=== PATIENT | female | born 1965 | race Caucasian/White ===

== ENCOUNTER 2020-09-01 13:00 | Emergency (ER) | payer OTHER, SELFPAY ==
[2020-09-01 13:10] VITALS: BP 123/69; PULSE 85; RESP 16; TEMP 36.5; O2SAT 100
--- NOTE | 2020-09-01 14:53 | PC.NURSE ---
pt states she is going to go home and come back tomorrow if she isnt better. states this is just too much .
== END 2020-09-01 13:53 | disposition left against medical advice (07) ==
PROVIDERS: PCP Family Medicine
DX: S09.90XA Unspecified injury of head, initial encounter (principal)
CPT/HCPCS: 99199

== ENCOUNTER 2021-07-31 04:41 | Emergency (ER) | payer OTHER, SELFPAY ==
--- NOTE | ~2021-07-31 | XR_ITS ---
EXAMINATION: XR chest 2V DATE: 07/31/2021 06:01 INDICATION: Cough TECHNIQUE: PA and lateral views of the chest were obtained. COMPARISON: Chest radiograph dated 09/08/[address] dated 09/16/2015 FINDINGS: Chronic reticulonodular pattern in the bilateral lower lung zones which on prior CT correspond to com bination of bronchiectasis and tree-in-bud opacities consistent with chronic/recurrent infection. No new airspace opacities, pleural effusion or pneumothorax. The cardiomediastinal silhouette is normal. Mild to moderate thoracic spondylosis. IMPRESSION: 1. Stable appearance of chronic reticulonodular pattern in the bilateral lower lung zones consistent with chronic/recurrent infection. Reviewed, dictated and finalized at location A.
[2021-07-31 04:46] VITALS: BP 113/66; PULSE 98; RESP 16; TEMP 36.2; O2SAT 100
[2021-07-31] MEDS: KETOROLAC 30 MG/ML VIAL (*BKC) IV PUSH (05:26)
[2021-07-31 05:29] VITALS: PULSE 85; RESP 16
[2021-07-31] MEDS: IPRATROPIUM BR 0.02% INH SOLN 0.5 MG/2.5 ML VIAL INHALATION (05:29)
[2021-07-31] MEDS: ALBUTEROL SULFATE NEB 2.5 MG/0.5 ML INH 5 MG INHALATION (05:29)
--- NOTE | 2021-07-31 05:29 | ED.GENADULT ---
HPI - General Adult General Chief complaint: Unspecified Stated complaint: LUNGS ARE PAINFUL Time Seen by Provider: 07/31/21 04:56 History of Present Illness HPI narrative: Patient is a 56-year-old female with history of bronchiectasis that presents ER with lung pain. Reports its been ongoing intermittently over the last 4 months. She has been on multiple doses of antibiotics. Denies fevers night but reports some intermittently over the week. Also endorses chills. Reports cough is productive of sputum. Most recently finished a 2-week course of doxycycline. She has had additional treatments with azithromycin and fluoroquinolones. She has not been on steroids. She has used her inhaler sparingly. No chest pain or chest pressure. Patient reports the pain is in her left lower chest wall where her bronchiectasis is located. Feels like pleurisy from the past. Related Data Allergies Allergy/AdvReac Type Severity Reaction Status Date / Time hydroxyzine Allergy Unknown Unknown Verified 07/06/21 09:30 Penicillins Allergy Unknown Unknown Verified 07/06/21 09:30 azithromycin Allergy stomach Verified 07/06/21 09:30 HEPATITIS B VACCINE Allergy Unknown Unknown Uncoded 07/06/21 09:30 Review of Systems Review of Systems: All systems reviewed & are unremarkable except as noted in HPI and below Constitutional: Constitutional: Reports chills, Denies fatigue and Reports fever(s) ENT: Denies nasal congestion and Denies sore throat Cardiovascular: Cardiovascular: Reports chest pain, Denies rapid heart rate and Denies radiating jaw, neck or arm pain Respiratory: Respiratory: Reports cough, Reports excessive phlegm production, Reports dyspnea and Denies wheezing Gastrointestinal: Gastrointestinal: Denies abdominal pain, Denies diarrhea, Denies nausea and Denies vomiting PMF Past Medical History Medical History (Updated 07/31/21 @ 06:18 by Yuri Calderon MD) ADD (attention deficit disorder) Anxiety disorder, unspecified Bronchiectasis at age 22 Surgical History Surgical History History of back surgery Disc replacement surgery History of dilation and curettage History of myomectomy Hx of breast implants, bilateral Hx of tonsillectomy Family History Family History (Updated 07/06/21 @ 09:06 by Nkechi Sanchez MA) Other Brain cancer Breast cancer Pancreas cancer Social History Social History (Updated 07/06/21 @ 09:33 by Nkechi Sanchez MA) Smoking status: Never smoker Alcohol intake: never Substance use: never Substance use type: does not use 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 HEAD: Normocephalic, atraumatic. EYES: PERRL and EOMI. CHEST: Clear to auscultation. No respiratory distress. HEART: Regular rate and rhythm. Normal peripheral pulses.. EXTREMITIES: Normal range of motion. No edema. SKIN: Warm, dry, no rash. NEURO: Alert and oriented x3. PSYCH: Normal mood and affect. Course Vital Signs Vital signs: Vital Signs Temperature 97.2 F L 07/31/21 04:46 Pulse Rate 98 07/31/21 04:46 Respiratory Rate 16 07/31/21 04:46 Blood Pressure 113/66 07/31/21 04:46 Pulse Oximetry 100 07/31/21 04:46 Temperature 97.2 F L 07/31/21 04:46 Pulse Rate 81 07/31/21 05:40 Respiratory Rate 14 07/31/21 05:40 Blood Pressure 113/66 07/31/21 04:46 Pulse Oximetry 100 07/31/21 04:46 Medical Decision Making Vital Signs Vital Signs: Vital Signs Temperature 97.2 F L 07/31/21 04:46 Pulse Rate 98 07/31/21 04:46 Respiratory Rate 16 07/31/21 04:46 Blood Pressure 113/66 07/31/21 04:46 Pulse Oximetry 100 07/31/21 04:46 Temperature 97.2 F L 07/31/21 04:46 Pulse Rate 81
[2021-07-31 05:36] LABS: Basophils Percent Auto 0.3 % (0.2-1.2); Eosinophils Absolute Auto 0.2 K/mm3 (0-0.3); Eosinophils Percent Auto 1.5 % (0-4.4); Hematocrit 38.7 % (37.0-47.0); Hemoglobin 12.9 g/dL (12.0-15.0); Immature Granulocyte Absolute 0.03 K/mm3 (0.00-0.031); Immature Granulocyte Percent A 0.3 % (0-0.5); Lymphocytes Absolute Auto 1.99 K/mm3 (0.9-3.2); Lymphocytes Percent Auto 16.8 % (18.3-44.2); Mean Corpuscular HGB Conc 33.3 g/dl (32-36); Mean Corpuscular Hemoglobin 30.9 pg (26-34); Mean Corpuscular Volume 92.6 fl (80-100); Mean Platelet Volume 9.3 fl (7.4-10.4); Monocytes Percent Auto 8.2 % (2.6-8.5); Neutrophils Absolute Auto 8.6 K/mm3 (1.3-6.7); Neutrophils Percent Auto 72.9 % (45.5-73.1); Platelet Count Result 291 k/mm3 (150-375); Red Blood Count 4.18 M/mm3 (4.2-5.4); Red Cell Distribution Width 13.8 % (11.5-14.5); White Blood Count 11.9 K/mm3 (4.5-10.0)
[2021-07-31 05:40] VITALS: PULSE 81; RESP 14
[2021-07-31 05:48] LABS: Anion Gap 3 mmol/L (8-16); Blood Urea Nitrogen 30 mg/dL (7-17); Calcium 8.7 mg/dL (8.4-10.2); Carbon Dioxide 28 mmol/L (22-30); Chloride 103 mmol/L (98-107); Estimated CRCL calculation 72 ml/min; Estimated Glomerular Filt Rate > 60; Glucose 91 mg/dL (65-110); Potassium 3.7 mmol/L (3.4-5.0); Sodium 134 mmol/L (137-145)
[2021-07-31 06:21] VITALS: BP 98/62; PULSE 80; RESP 18; O2SAT 97
== END 2021-07-31 06:47 | disposition home or self-care (01) ==
PROVIDERS: Emergency Provider Emergency Medicine; PCP Family Medicine
DX: J40 Bronchitis, not specified as acute or chronic (principal)
CPT/HCPCS: 36415; 71046; 80048; 85025; 94640; 96374; 99284; J1885

== ENCOUNTER 2021-08-24 00:34 | Day surgery (SDC) | payer OTHER, SELFPAY ==
[2021-08-10 11:10] VITALS: BMI 20.9
[2021-08-24 08:09] VITALS: BP 93/56; PULSE 75; RESP 18; TEMP 36.2; O2SAT 100
[2021-08-24] MEDS: LACTATED RINGERS 1,000 ML 150 ML IV CONT (08:23)
--- NOTE | 2021-08-24 08:24 | WPDANESEPPF ---
Anes - Initial Pre Proc Eval Procedure: Operation Date: 08/24/21 09:15 Proposed Procedures p Screening Colonoscopy - Rafael Bella MD Date/Time: 08/24/21 08:24 Surgeon: Rafael Bella MD Pre Op Diagnosis: neoplasm screening Patient Data Age: 56 Gender: F Height: 1.68 m Weight: 58.1 kg Last Vital Signs Temp 97.2 F L 08/24/21 08:09 Pulse 75 08/24/21 08:09 Resp 18 08/24/21 08:09 BP 93/56 L 08/24/21 08:09 Pulse Ox 100 08/24/21 08:09 O2 Del Method Room Air 08/24/21 08:09 Allergies Allergy/AdvReac Type Severity Reaction Status Date / Time hydroxyzine Allergy Unknown Unknown Verified 08/24/21 08:07 Penicillins Allergy Unknown Unknown Verified 08/24/21 08:07 azithromycin Allergy stomach Verified 08/24/21 08:07 HEPATITIS B VACCINE Allergy Unknown Unknown Uncoded 08/24/21 08:07 Home Medications Medication Instructions Recorded Confirmed Type albuterol sulfate 90 mcg/actuation 2 inh inhalation Q4H PRN shortness 06/16/21 08/10/21 Rx aerosol inhaler (Ventolin HFA) of breath or wheezing #6.7 grams estradiol-norethindrone acet 0.5 1 tablet PO DAILY #28 tabs 07/06/21 08/10/21 Rx mg-0.1 mg tablet prednisone 50 mg tablet 50 mg PO DAILY #7 tabs 07/31/21 08/10/21 Rx budesonide-formoterol HFA 160 2 puff inhalation Q12H 30 days 08/09/21 08/10/21 Rx mcg-4.5 mcg/actuation aerosol #10.2 grams inhaler (Symbicort) dextroamphetamine-amphetamine ER 30 mg PO QAM #30 caps 08/09/21 08/10/21 Rx 30 mg 24hr capsule,extend release ferrous sulfate 325 mg (65 mg 325 mg PO DAILY 08/10/21 08/10/21 History iron) tablet trazodone 50 mg tablet 50 - 100 mg PO HS PRN Insomnia 08/10/21 08/10/21 History Patient hx anesthesia problems: none Family hx anesthesia problems: none Results Review: All pre-operative results and documents have been reviewed as part of the pre-operative evaluation. [facility] Past Medical History Medical History (Updated 08/01/21 @ 00:00 by Shaq Boland) ADD (attention deficit disorder) Anxiety disorder, unspecified Bronchiectasis at age 22 Surgical History Surgical History History of back surgery Disc replacement surgery History of dilation and curettage History of myomectomy Hx of breast implants, bilateral Hx of tonsillectomy Family History Family History (Updated 07/06/21 @ 09:06 by Nkechi Sanchez MA) Other Brain cancer Breast cancer Pancreas cancer Social History Social History (Updated 07/06/21 @ 09:33 by Nkechi Sanchez MA) Smoking status: Never smoker Alcohol intake: never Substance use: never Substance use type: does not use Living arrangements: with family 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 Gender identity (if verbalized by the patient): Female Sexual Orientation (if Verbalized by the Patient): Straight or Heterosexual Spiritual care concerns: No Anes - Eval Final PreProcedure Day of Procedure 08/24/21 08:24 Patient weight: normal Heart: regular rate and rhythm Lungs: clear to auscultation Neurological: alert and oriented Last oral intake: >/= 8 hours ASA classification: II Emergent: no Anesthetic plan: proceed Anesthesia type and monitoring: general GIVS and standard monitoring Results Review: All pre-operative results and documents have been reviewed as part of the pre-operative evaluation. Informed Consent: The patient's anesthetic plan and its attendant risks and benefits were discussed with the patient/family/POA. Questions were solicited and answers provided to the satisfaction of the patient/family/POA.
--- NOTE | 2021-08-24 08:24 | WPDGICN ---
Assessment and Plan Assessment and plan (1) Encounter for screening colonoscopy: Code(s): Z12.11 - Encounter for screening for malignant neoplasm of colon Status: Acute Assessment and Plan: Patient presents for screening colonoscopy. Further recommendations will be given after colonoscopy. GI Consult Note Consult date/time: 08/24/21 08:24 HPI: Destiney Preston is a 56 year old female Presents for screening colonoscopy. Patient's current weight appetite and bowel movements are normal. She denies abdominal pain. She has had no bleeding. Family history is noncontributory. Patient presents today for neoplasia screening colonoscopy. Review of Systems Review of Systems: Review of systems is noncontributory. [facility] Past Medical History Medical History (Updated 08/24/21 @ 08:26 by Rafael Bella MD) ADD (attention deficit disorder) Anxiety disorder, unspecified Bronchiectasis at age 22 Surgical History Surgical History History of back surgery Disc replacement surgery History of dilation and curettage History of myomectomy Hx of breast implants, bilateral Hx of tonsillectomy Family History Family History (Updated 07/06/21 @ 09:06 by Nkechi Sanchez MA) Other Brain cancer Breast cancer Pancreas cancer Social History Social History (Updated 07/06/21 @ 09:33 by Nkechi Sanchez MA) Smoking status: Never smoker Alcohol intake: never Substance use: never Substance use type: does not use Living arrangements: with family 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 Gender identity (if verbalized by the patient): Female Sexual Orientation (if Verbalized by the Patient): Straight or Heterosexual Spiritual care concerns: No Meds Home Medications and Allergies Home Medications Medication Instructions Recorded Confirmed Type albuterol sulfate 90 mcg/actuation 2 inh inhalation Q4H PRN shortness 06/16/21 08/10/21 Rx aerosol inhaler (Ventolin HFA) of breath or wheezing #6.7 grams estradiol-norethindrone acet 0.5 1 tablet PO DAILY #28 tabs 07/06/21 08/10/21 Rx mg-0.1 mg tablet prednisone 50 mg tablet 50 mg PO DAILY #7 tabs 07/31/21 08/10/21 Rx budesonide-formoterol HFA 160 2 puff inhalation Q12H 30 days 08/09/21 08/10/21 Rx mcg-4.5 mcg/actuation aerosol #10.2 grams inhaler (Symbicort) dextroamphetamine-amphetamine ER 30 mg PO QAM #30 caps 08/09/21 08/10/21 Rx 30 mg 24hr capsule,extend release ferrous sulfate 325 mg (65 mg 325 mg PO DAILY 08/10/21 08/10/21 History iron) tablet trazodone 50 mg tablet 50 - 100 mg PO HS PRN Insomnia 08/10/21 08/10/21 History Allergies Allergy/AdvReac Type Severity Reaction Status Date / Time hydroxyzine Allergy Unknown Unknown Verified 08/24/21 08:07 Penicillins Allergy Unknown Unknown Verified 08/24/21 08:07 azithromycin Allergy stomach Verified 08/24/21 08:07 HEPATITIS B VACCINE Allergy Unknown Unknown Uncoded 08/24/21 08:07 Vital Signs Vital Signs - 24 hr 08/24/21 08:09 Temperature 97.2 F L Pulse Rate 75 Respiratory Rate 18 Blood Pressure 93/56 L Pulse Oximetry 100 Oxygen Delivery Room Air Exam Narrative: Physical exam reveals patient to be alert. Vital signs stable. HEENT exam is unremarkable. Patient is anicteric. Lungs are clear to auscultation and percussion. Heart is without murmur or extra sounds. Abdominal exam bowel sounds are present soft nontender with no organomegaly. Digital external rectal exam is normal.
--- NOTE | 2021-08-24 08:28 | SUR.PREOP ---
DR TRIPLETT NOTIFIED PT DRANK A HALF GLASS OF WATER AT 0750 FOR DRY THROAT. NO NEW ORDERS.
[2021-08-24 09:53] VITALS: BP 94/58; PULSE 78; RESP 24; O2SAT 100
[2021-08-24 10:03] VITALS: BP 101/64; PULSE 85; RESP 16; O2SAT 100
[2021-08-24 10:11] VITALS: BP 108/71; PULSE 76; RESP 17; O2SAT 100
== END 2021-08-24 10:26 | disposition home or self-care (01) ==
PROVIDERS: PCP Family Medicine; Visit Provider Internal Medicine Gastroenterology
PROC: 0DJD8ZZ Inspection of Lower Intestinal Tract, Via Natural or Artificial Opening Endoscopic (ICD-10-PCS; CPT 45378; principal; 2021-08-24 09:15)
DX: Z12.11 Encounter for screening for malignant neoplasm of colon (principal); F98.8 Other specified behavioral and emotional disorders with onset usually occurring in childhood and adolescence; F41.9 Anxiety disorder, unspecified; K64.8 Other hemorrhoids
CPT/HCPCS: 45378; J2704; J7120

== ENCOUNTER 2021-10-07 21:31 | Emergency (ER) | payer OTHER, SELFPAY ==
--- NOTE | ~2021-10-07 | CT_ITS ---
EXAMINATION: CT abdomen pelvis wo con DATE: 10/07/2021 23:07 INDICATION: Left flank pain and nausea TECHNIQUE: Computed tomography (CT) of the abdomen and pelvis was performed without intravenous contr ast. The dose-length product was 247.79 mGy-cm. Automated exposure control and iterative reconstructi on technique were employed. COMPARISON: None. FINDINGS: There is extensive reticulonodular opacities in the lower lungs with bronchiectasis and bro nchial wall thickening, consistent with infection. Heart size is normal. There are bilateral breast i mplants. There is hepatomegaly. There is a nonobstructing right renal stone. No ureteral stones or hy dronephrosis. Nonobstructive bowel gas pattern. Moderate colonic fecal loading. There are bilateral b reast implants. Gallbladder is present. IMPRESSION: 1. Extensive course interstitial changes of the lower lungs with reticulonodular opacities in tree-in -bud configuration. Lungs compatible with infectious/inflammatory process which may be acute superimp osed on chronic. Consider atypical infections such as tuberculosis, fungal infection and sarcoidosis. 2: Hepatomegaly. 3: Nonobstructing right nephrolithiasis. Reviewed, dictated and finalized at location A. IMPRESSION: 1. Extensive course interstitial changes of the lower lungs with reticulonodula r opacities in tree-in-bud configuration. Lungs compatible with infectious/infl ammatory process which may be acute superimposed on chronic. Consider atypical infections such as tuberculosis, fungal infection and sarcoidosis. 2: Hepatomegaly. 3: Nonobstructing right nephrolithiasis.
[2021-10-07 21:34] VITALS: BP 110/70; PULSE 86; RESP 20; TEMP 36.6; O2SAT 99
[2021-10-07 21:51] LABS: Basophils Percent Auto 0.3 % (0.2-1.2); Eosinophils Absolute Auto 0.2 K/mm3 (0-0.3); Eosinophils Percent Auto 1.3 % (0-4.4); Hematocrit 44.7 % (37.0-47.0); Hemoglobin 14.4 g/dL (12.0-15.0); Immature Granulocyte Absolute 0.04 K/mm3 (0.00-0.031); Immature Granulocyte Percent A 0.3 % (0-0.5); Lymphocytes Absolute Auto 2.08 K/mm3 (0.9-3.2); Lymphocytes Percent Auto 17.5 % (18.3-44.2); Mean Corpuscular HGB Conc 32.2 g/dl (32-36); Mean Corpuscular Hemoglobin 30.4 pg (26-34); Mean Corpuscular Volume 94.3 fl (80-100); Mean Platelet Volume 8.8 fl (7.4-10.4); Monocytes Absolute Auto 0.7 K/mm3 (0.1-0.6); Monocytes Percent Auto 6.2 % (2.6-8.5); Neutrophils Absolute Auto 8.9 K/mm3 (1.3-6.7); Neutrophils Percent Auto 74.4 % (45.5-73.1); Platelet Count Result 278 k/mm3 (150-375); Red Blood Count 4.74 M/mm3 (4.2-5.4); Red Cell Distribution Width 13.7 % (11.5-14.5); White Blood Count 11.9 K/mm3 (4.5-10.0)
[2021-10-07 22:00] LABS: Alanine Aminotransferase 35 U/L (6-35); Alkaline Phosphatase 61 U/L (38-126); Anion Gap 2 mmol/L (8-16); Aspartate Amino Transferase 26 U/L (14-36); Bilirubin,Total 0.3 mg/dL (0.2-1.3); Blood Urea Nitrogen 21 mg/dL (7-17); Calcium 8.8 mg/dL (8.4-10.2); Carbon Dioxide 31 mmol/L (22-30); Chloride 106 mmol/L (98-107); Estimated CRCL calculation 59 ml/min; Estimated Glomerular Filt Rate > 60; Glucose 86 mg/dL (65-110); Potassium 4.3 mmol/L (3.4-5.0); Sodium 139 mmol/L (137-145)
[2021-10-07] MEDS: fentaNYL CITRATE INJ (*CRX) 100 MCG/2 ML VIAL 50 MCG IV PUSH (22:27)
[2021-10-07] MEDS: SODIUM CHLORIDE 0.9% IV 1,000 ML 999 ML IV CONT (22:28)
--- NOTE | 2021-10-07 22:33 | ED.ABDPAIN ---
HPI - Abdominal Pain General Chief Complaint: Abdominal Pain Stated Complaint: left flank pain Time Seen by Provider: 10/07/21 22:06 History of Present Illness HPI narrative: 56-year-old female presents the emergency room via EMS for evaluation of left flank/low back pain. Denies injury or trauma. She has a significant history of bronchiectasis, and has noticed back pain with inspiration. patient states the pain began suddenly and describes the pain as, something is moving around inside of me . Reports movement and inspiration aggravates the pain. Has to lie on her right side to alleviate the pain. ALso reports constipation. No hx of kidney stones. Denies nausea, vomiting or diarrhea. Denies dysuria. Recently seen by PCP, he started her on neb treatments which she says helps her bronchiectasis. Has not followed up with pulmonology. Related Data Home Medications Medication Instructions Recorded Confirmed ferrous sulfate 325 mg (65 mg 325 mg PO DAILY 08/10/21 10/03/21 iron) tablet trazodone 50 mg tablet 50 - 100 mg PO HS PRN Insomnia 08/10/21 10/03/21 Allergies Allergy/AdvReac Type Severity Reaction Status Date / Time hepatitis B virus vaccine Allergy Unknown Verified 10/07/21 22:23 hydroxyzine Allergy Unknown Unknown Verified 10/03/21 15:30 Penicillins Allergy Unknown Unknown Verified 10/03/21 15:30 azithromycin Allergy stomach Verified 10/03/21 15:30 Review of Systems Review of Systems: CONSTITUTIONAL: Denies fever, chills, or sweats. EYES: Denies visual changes, redness, or discharge. ENT: Denies rhinorrhea, congestion, sore throat, or otalgia. CARDIOVASCULAR: Denies chest pain, palpitations, or edema. RESPIRATORY: Denies cough or dyspnea. GASTROINTESTINAL: Reports left flank pain GENITOURINARY: Denies dysuria or hematuria. SKIN: Denies rash or itching. MUSCULOSKELETAL: Denies back pain, joint pain, or myalgia. NEUROLOGIC: Denies headache, numbness, dizziness, or weakness. PSYCHIATRIC: Denies anxiety or depression. 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 HEAD: Normocephalic, atraumatic. EYES: Conjunctivae normal, PERRLA and EOMI. CHEST: Clear to auscultation. No respiratory distress. No wheezes rales or rhonchi. No tenderness. HEART: Regular rate and rhythm. No murmur heard. Normal peripheral pulses. ABDOMEN: Soft, nontender, nondistended, normal active bowel sounds. BACK: Left CVA tenderness, tenderness to left lateral thoracic wall EXTREMITIES: Normal range of motion. No edema. No clubbing or cyanosis SKIN: Warm, dry, no rash. No noted wounds NEURO: No focal deficits. Alert and oriented x3. MAEW. CN's II-XI intact bilaterally, normal gait PSYCH: Cooperative. Normal mood and affect. Course Vital Signs Vital signs: Vital Signs Temperature 36.6 C 10/07/21 21:34 Pulse Rate 86 10/07/21 21:34 Respiratory Rate 20 10/07/21 21:34
--- NOTE | 2021-10-07 23:08 | PC.NURSE ---
Assuming care of pt.
[2021-10-07 23:12] LABS: Appearance Urine Clear (Clear); Bilirubin Urine Negative (Negative); Color Urine Yellow (Yellow); Glucose Urine UA Negative (Negative); Ketones Urine Negative (Negative); Leukocyte Esterase Ur Negative LEU/UL (Negative); Nitrate Urine Negative (Negative); Protein Urine Negative (Negative); Specific Grav Ur 1.015 (1.001-1.035); Urobilinogen Urine 0.2 mg/dL (<2.0); pH Urine 7.5 (5.0-9.0)
[2021-10-07 23:23] LABS: Mucus Urine Rare /lpf; Squamous Epithelial Cell Urine Few /hpf (Few); WBC Urine 0-3 /hpf
[2021-10-07 23:24] LABS: Add Urine Microscopic? YES; Blood Urine Trace-Intact (Negative)
[2021-10-08 00:23] VITALS: BP 143/80; PULSE 105; RESP 18; O2SAT 98
[2021-10-08] MEDS: MAGNESIUM CITRATE 300 ML BTL PO (01:59)
[2021-10-08 02:01] VITALS: BP 106/70; PULSE 81; RESP 18; O2SAT 100
== END 2021-10-08 02:19 | disposition home or self-care (01) ==
PROVIDERS: Emergency Medicine; Emergency Provider Nurse Practitioner Family; PCP Emergency Medicine
DX: K59.00 Constipation, unspecified (principal); J47.9 Bronchiectasis, uncomplicated; F98.8 Other specified behavioral and emotional disorders with onset usually occurring in childhood and adolescence; F41.9 Anxiety disorder, unspecified
CPT/HCPCS: 36415; 74176; 80053; 81001; 85025; 96361; 96374; 99284; A9270; J1100; J3010; J7030

== ENCOUNTER 2021-12-11 10:40 | Outpatient (CLI) | payer OTHER, SELFPAY ==
[2021-12-11 11:27] LABS: Basophils Percent Auto 0.5 % (0.2-1.2); Eosinophils Absolute Auto 0.2 K/mm3 (0-0.3); Hematocrit 42.5 % (37.0-47.0); Hemoglobin 13.9 g/dL (12.0-15.0); Immature Granulocyte Absolute 0.02 K/mm3 (0.00-0.031); Immature Granulocyte Percent A 0.3 % (0-0.5); Lymphocytes Absolute Auto 1.64 K/mm3 (0.9-3.2); Lymphocytes Percent Auto 26.9 % (18.3-44.2); Mean Corpuscular HGB Conc 32.7 g/dl (32-36); Mean Corpuscular Hemoglobin 30.6 pg (26-34); Mean Corpuscular Volume 93.6 fl (80-100); Mean Platelet Volume 9.7 fl (7.4-10.4); Monocytes Absolute Auto 0.4 K/mm3 (0.1-0.6); Monocytes Percent Auto 7.2 % (2.6-8.5); Neutrophils Absolute Auto 3.8 K/mm3 (1.3-6.7); Neutrophils Percent Auto 62.1 % (45.5-73.1); Platelet Count Result 254 k/mm3 (150-375); Red Blood Count 4.54 M/mm3 (4.2-5.4); Red Cell Distribution Width 13.8 % (11.5-14.5); White Blood Count 6.1 K/mm3 (4.5-10.0)
[2021-12-11 11:47] LABS: Immunoglobulin G 726 mg/dL (700-1600); Rheumatoid Factor 50.1 IU/ML (<12)
[2021-12-13 14:44] LABS: Immunoglobulin A 228 mg/dL (47-310); Immunoglobulin G 845 mg/dL (600-1640); Immunoglobulin M 126 mg/dL (50-300)
[2021-12-13 17:52] LABS: Aspergillus Fumigatus K/UL <0.10 (<0.10); Conventional Class 0 (0)
[2021-12-14 17:56] LABS: Aspergillus fumigatus (m3) IgG 23.7 mcg/mL (<2.0)
== END 2021-12-11 10:41 | disposition home or self-care (01) ==
LOC: ANHLAB 10:43
PROVIDERS: PCP Emergency Medicine; Visit Provider Internal Medicine Pulmonary Disease
DX: J47.9 Bronchiectasis, uncomplicated (principal)
CPT/HCPCS: 36415; 82784; 85025; 86001; 86003; 86430; 87015; 87070; 87102; 87106; 87116; 87186; 87205; 87206

== ENCOUNTER 2021-12-14 19:04 | Inpatient (IN) | payer OTHER, SELFPAY ==
--- NOTE | ~2021-12-14 | CT_ITS ---
EXAMINATION: CT chest high resolution wo co DATE: 12/15/2021 08:26 INDICATION: Bronchiectasis TECHNIQUE: Computed tomography (CT) of the chest was performed without intravenous contrast. The dose -length product (DLP) was 132.81 mGy-cm. Automated exposure control and iterative reconstruction tech nique were employed. COMPARISON: None FINDINGS: Again seen are widespread centrilobular nodules and tree-in-bud opacities with a lower lung zone predominance which demonstrates slight worsening. There is mild associated bronchiectasis in th e affected lungs without significant change. No pleural effusion or pneumothorax. Bilateral breast im plants are noted. There is a 1.8 cm nodule of the right thyroid lobe. No pathologically enlarged thor acic lymph nodes are identified. The heart size is normal. There is mild thoracic spondylosis. IMPRESSION: 1. Chronic centrilobular nodules and tree-in-bud opacities in the lower lung zones with slight interv al worsening, consistent with chronic infection. 2. Chronic bronchiectasis in the lower lung zones, consistent with chronic repeated infections. Reviewed, dictated and finalized at location B. IMPRESSION: 1. Chronic centrilobular nodules and tree-in-bud opacities in the lower lung zo lakeisha with slight interval worsening, consistent with chronic infection. 2. Chronic bronchiectasis in the lower lung zones, consistent with chronic repe ated infections.
--- NOTE | ~2021-12-14 | XR_ITS ---
EXAMINATION: XR chest 1V portable INDICATION: Cough TECHNIQUE: Portable AP chest at 0034 hours COMPARISON: 07/31/2021 FINDINGS: There are minimal airspace opacities of the lung bases. No pleural effusion or pneumothorax . The cardiac mediastinal silhouette is normal. Bilateral breast implants are noted. IMPRESSION: 1. Minimal airspace opacities of the lung bases, consistent with atelectasis versus pneumonia. Reviewed, dictated and finalized at location B. IMPRESSION: 1. Minimal airspace opacities of the lung bases, consistent with atelectasis ve rsus pneumonia.
[2021-12-14 19:56] VITALS: BP 116/84; PULSE 88; RESP 18; TEMP 36.6; O2SAT 98
[2021-12-14 20:20] LABS: Basophils Percent Auto 0.4 % (0.2-1.2); Eosinophils Absolute Auto 0.2 K/mm3 (0-0.3); Eosinophils Percent Auto 1.9 % (0-4.4); Hematocrit 44.4 % (37.0-47.0); Hemoglobin 14.6 g/dL (12.0-15.0); Immature Granulocyte Absolute 0.01 K/mm3 (0.00-0.031); Immature Granulocyte Percent A 0.1 % (0-0.5); Lymphocytes Absolute Auto 1.65 K/mm3 (0.9-3.2); Lymphocytes Percent Auto 21.3 % (18.3-44.2); Mean Corpuscular HGB Conc 32.9 g/dl (32-36); Mean Corpuscular Hemoglobin 30.7 pg (26-34); Mean Corpuscular Volume 93.3 fl (80-100); Mean Platelet Volume 9.1 fl (7.4-10.4); Monocytes Absolute Auto 0.4 K/mm3 (0.1-0.6); Monocytes Percent Auto 4.5 % (2.6-8.5); Neutrophils Absolute Auto 5.6 K/mm3 (1.3-6.7); Neutrophils Percent Auto 71.8 % (45.5-73.1); Platelet Count Result 262 k/mm3 (150-375); Red Blood Count 4.76 M/mm3 (4.2-5.4); Red Cell Distribution Width 13.5 % (11.5-14.5); White Blood Count 7.8 K/mm3 (4.5-10.0)
[2021-12-14 20:29] LABS: Lactic Acid Reflex 1.1 mmol/L (0.7-2.0)
[2021-12-14 20:30] LABS: Alanine Aminotransferase 25 U/L (6-35); Albumin Level 4.2 g/dL (3.5-5.1); Alkaline Phosphatase 61 U/L (38-126); Anion Gap 12 mmol/L (8-16); Aspartate Amino Transferase 27 U/L (14-36); Bilirubin,Total 0.4 mg/dL (0.2-1.3); Blood Urea Nitrogen 16 mg/dL (7-17); Calcium 8.8 mg/dL (8.4-10.2); Carbon Dioxide 25 mmol/L (22-30); Chloride 105 mmol/L (98-107); Estimated CRCL calculation 74 ml/min; Estimated Glomerular Filt Rate > 60; Glucose 107 mg/dL (65-110); Potassium 3.7 mmol/L (3.4-5.0); Sodium 142 mmol/L (137-145)
[2021-12-14 20:43] LABS: Appearance Urine Clear (Clear); Bilirubin Urine Negative (Negative); Blood Urine Negative (Negative); Color Urine Yellow (Yellow); Glucose Urine UA Negative (Negative); Ketones Urine Negative (Negative); Leukocyte Esterase Ur Negative LEU/UL (Negative); Nitrate Urine Negative (Negative); Protein Urine Negative (Negative); Specific Grav Ur 1.025 (1.001-1.035); Urobilinogen Urine 0.2 mg/dL (<2.0); pH Urine 6.5 (5.0-9.0)
[2021-12-14 20:46] LABS: Bacteria Urine Trace /hpf; Mucus Urine Few /lpf; Squamous Epithelial Cell Urine Moderate /hpf (Few); WBC Urine 0-3 /hpf
[2021-12-14 20:52] LABS: Add Urine Microscopic? NO
--- NOTE | 2021-12-15 00:27 | ED.GENADULT ---
HPI - General Adult General Chief complaint: Recheck/Abnormal Lab/Rx Stated complaint: IV ABX NEEDED FOR PSEUDOMONAS Time Seen by Provider: 12/15/21 00:16 History of Present Illness HPI narrative: Patient 56-year-old female who presents the emergency department with chief complaint of bronchiectasis. Patient reports that she has had issues for about 6 months and recently saw pulmonology and had a sputum culture that was positive for Pseudomonas. Patient was instructed to go to the emergency department for IV antibiotics. Related Data Home Medications Medication Instructions Recorded Confirmed ferrous sulfate 325 mg (65 mg 325 mg PO DAILY 08/10/21 11/02/21 iron) tablet trazodone 50 mg tablet 50 - 100 mg PO HS PRN Insomnia 08/10/21 11/02/21 Allergies Allergy/AdvReac Type Severity Reaction Status Date / Time hepatitis B virus vaccine Allergy Unknown Anxiety Verified 12/15/21 00:48 hydroxyzine Allergy Unknown Unknown Verified 12/15/21 00:48 Penicillins Allergy Unknown Unknown Verified 12/15/21 00:48 azithromycin Allergy stomach Verified 12/15/21 00:48 PMFSH Past Medical History Medical History ADD (attention deficit disorder) Anxiety disorder, unspecified Bronchiectasis at age 22 Surgical History Surgical History History of back surgery Disc replacement surgery History of dilation and curettage History of myomectomy Hx of breast implants, bilateral Hx of tonsillectomy Family History Family History Other Brain cancer Breast cancer Pancreas cancer Social History Social History Smoking status: Never smoker Alcohol intake: never Substance use: never Substance use type: does not use 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 Gender identity (if verbalized by the patient): Female Sexual Orientation (if Verbalized by the Patient): Straight or Heterosexual Spiritual care concerns: No Course Vital Signs Vital signs: Vital Signs Temperature 36.6 C 12/14/21 19:56 Pulse Rate 88 12/14/21 19:56 Respiratory Rate 18 12/14/21 19:56 Blood Pressure 116/84 12/14/21 19:56 Pulse Oximetry 98 12/14/21 19:56 Oxygen Delivery Room Air 12/14/21 19:56 Temperature 36.6 C 12/14/21 19:56 Pulse Rate 88 12/14/21 19:56 Respiratory Rate 18 12/14/21 19:56 Blood Pressure 116/84 12/14/21 19:56 Pulse Oximetry 98 12/14/21 19:56 Oxygen Delivery Room Air 12/14/21 19:56 Medical Decision Making Vital Signs Vital Signs: Vital Signs Temperature 36.6 C 12/14/21 19:56 Pulse Rate 88 12/14/21 19:56 Respiratory Rate 18 12/14/21 19:56 Blood Pressure 116/84 12/14/21 19:56 Pulse Oximetry 98 12/14/21 19:56 Oxygen Delivery Room Air 12/14/21 19:56 Temperature 36.6 C 12/14/21 19:56 Pulse Rate 88 12/14/21 19:56 Respiratory Rate 18 12/14/21 19:56 Blood Pressure 116/84 12/14/21 19:56 Pulse Oximetry 98 12/14/21 19:56 Oxygen Delivery Room Air 12/14/21 19:56 Lab Data Result diagrams: 12/14/21 20:13 12/14/21 20:13 Labs: Lab Results 12/14/21 12/14/21 12/14/21 Range/Units 20:13 20:13 20:13 WBC 7.8 (4.5-10.0) K/mm3 RBC 4.76 (4.2-5.4) M/mm3 Hgb 14.6 (12.0-15.0) g/dL Hct 44.4 (37.0-47.0) % MCV 93.3 (80-100) fl MCH 30.7 (26-34) pg MCHC 32.9 (32-36) g/dl RDW 13.5 (11.5-14.5) % Plt Count 262 (150-375) k/mm3 MPV 9.1 (7.4-10.4) fl Immature Gran % (Auto) 0.1 (0-0.5) % Neut % (Auto) 71.8 (45.5-73.1) % Lymph % (Auto) 21.3 (18.3-44.2) % Cameron % (Auto) 4.5 (2.6-8.5) % Eos % (Auto) 1.9 (0-4.4) % Baso % (Auto) 0.4 (0.2-1.2) % Lymph # (Auto) 1.65 (0.9-3.2) K/mm3 Cameron # (Auto) 0.4 (0.1-0.6) K/m
[2021-12-15 01:34] VITALS: BP 101/67; PULSE 74; RESP 16; O2SAT 99
[2021-12-15 03:33] LABS: SARS-CoV-2 RNA PCR Negative
[2021-12-15 04:07] VITALS: BP 108/68; PULSE 78; RESP 16; TEMP 37; O2SAT 97; BMI 20.7
[2021-12-15 04:38] VITALS: BP 108/68; PULSE 78; TEMP 37; O2SAT 97; BMI 20.7
--- NOTE | 2021-12-15 04:41 | ADMGEN ---
This patient, Destiney Preston, was admitted to Medical Room 253-01. Patient/family oriented to hospital policies and general routines including ID bracelet, bed and alarms, visiting hours, pain management, procedures, bathroom and other care routines, personal items, smoking policy, room service/diet, and visiting hours. Information on how to activate the Rapid Response Team has been discussed. Patient/Family are encouraged to report perceived risks to care and to ask questions if they do not understand what they are told or what they should do.
[2021-12-15 08:23] LABS: INR 1.1; Partial Thromboplastin Time 29.1 SECONDS (22.3-36.8); Prothrombin Time 13.3 Seconds (11.1-14.7)
[2021-12-15] MEDS: FERROUS SULFATE 324 MG TABLET PO (09:02)
[2021-12-15] MEDS: guaiFENesin 12 HR 600 MG TABCR PO ×2 (09:03→20:33)
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
--- NOTE | 2021-12-15 13:47 | PM.CNPUL ---
Assessment and Plan Assessment and plan (1) Bronchiectasis: Code(s): J47.9 - Bronchiectasis, uncomplicated Status: Acute Assessment and Plan: Patient with a longstanding history of bronchiectasis thought to be idiopathic. Of interest patient has an elevated rheumatoid factor and I will send a anti CCP antibody. In addition I will send a EDMUNDO screen for 11 different auto antibodies. Patient will be placed on her Symbicort equivalent of Advair 115-21 at 2 puffs q.12 hours. Patient will be placed on her baseline guaifenesin 600 mg p.o. q.12 hours. Currently patient is on room air with saturations 97%. (2) Bacterial infection due to Pseudomonas: Code(s): A49.8 - Other bacterial infections of unspecified site Status: Acute Assessment and Plan: Patient has worsened clinically and now has dyspnea on exertion at 1 flight or 1 block progressively worse over the last 2 months. The patient has Pseudomonas in 2 sputums from 11/22 and 12/11 both of which are sensitive to cefepime. Will place the patient on cefepime 2 g IV q.8 hours with plans for total treatment of 14 days. Once the patient is clinically stable can complete this therapy at home. A PICC line will be placed today. I spoke with the care coordination team today and they will investigate the cost of cefepime as well as the logistics behind delivering this drug at home. Of note the patient does have family members who are nurses and may be able to assist with delivering this medication at home. History of Present Illness History of Present Illness Consult date: 12/15/21 Chief complaint: bronchiectasis, PSEUDOMONAS infection Narrative: 12/15/2021: This is a new pulmonary consult for bronchiectasis with Pseudomonas. 56-year-old woman with a history of bronchiectasis, anxiety, ADD who is followed in the Pulmonary Clinic by Dr. Roque. Office visit from 12/07/2021 ?this 56-year-old female is seen in Pulmonary Clinic in consultation for frequent respiratory infections and bronchiectasis.? The patient has a long history of respiratory? infections going back to many years ago when she was? about 24 years old.? During that time, the patient was diagnosed with pneumonia and underwent workup with bronchoscopy.? She was diagnosed with bronchiectasis which were not related to cystic fibrosis.? In fact she was tested negative for cystic fibrosis through nl sweat test.? For period of approximately 10 years from the age of 34 through age of 44, patient did not have that many respiratory infections.? Over the last 7-10 years, she has had frequent bouts of bronchitis with sputum production and cough.? Respiratory condition has worsened, especially since last April.? Over the last 10 months, she has been treated with several courses of antibiotics including azithromycin and Levaquin.? She was recently treated for Levaquin after? sputum culture? had grown Pseudomonas.? Her last dose of Levaquin was 2 days ago.? The patient has chronic sputum production approximately? half a glass daily. She often feels weak but has no fever chills hemoptysis night sweats,? wheezing, or lower extremity edema.? She had multiple ill-defined nodules along with bronchiectasis in both lower lobes on an abdominal? CT done about 6 weeks ago. There was no evidence elevated eosinophilic count on recent CBC.? Sputum culture last month? grew Pseudomonas sensitive to levofloxacin and ciprofloxacin.? Patient is a never smoker.? There is no history of respiratory disease in her family.? She never had history of asthma.? She has no history of exposure to occupational agents.? She has 3 children and 4 miscarriages. Currently, over the last 2 months has had a to decline in her health with worsening dyspnea on exertion, burning feeling in her chest and a more productive cough. She denies fever, chills, rigors. Patient had a sputum sample on 11/22/2021 with Pseudomonas resistant only to imipenem and sen
[2021-12-15 14:30] VITALS: BP 96/50; PULSE 95; RESP 20; TEMP 36.7; O2SAT 100
--- NOTE | 2021-12-15 14:46 | PHAR ---
HOME MEDICATIONS VERIFIED BY PHARMACY ADDERALL ER 30MG CAPSULES 1 CAP PO DAILY QAM [id number] ESTRADIOL AND NORETHINDRONE 0.5MG/0.1MG 1 PO DAILY
[2021-12-15 21:10] VITALS: BP 105/66; PULSE 88; RESP 18; TEMP 36.8; O2SAT 100
[2021-12-15] MEDS: traZODone HCL 50 MG TABLET PO (21:15)
[2021-12-15] MEDS: FLUTICASONE/SALMETEROL 115-21 MCG INHALER 1 PUFF 2 PUFF INHALATION (23:58)
[2021-12-16 05:28] VITALS: BP 101/56; PULSE 74; RESP 18; TEMP 36.8; O2SAT 94
[2021-12-16 05:54] LABS: Hematocrit 41.3 % (37.0-47.0); Hemoglobin 13.6 g/dL (12.0-15.0); Mean Corpuscular HGB Conc 32.9 g/dl (32-36); Mean Corpuscular Hemoglobin 30.6 pg (26-34); Mean Platelet Volume 9.4 fl (7.4-10.4); Platelet Count Result 261 k/mm3 (150-375); Red Blood Count 4.44 M/mm3 (4.2-5.4); Red Cell Distribution Width 13.5 % (11.5-14.5); White Blood Count 7.5 K/mm3 (4.5-10.0)
[2021-12-16 06:08] LABS: Anion Gap 8 mmol/L (8-16); Blood Urea Nitrogen 14 mg/dL (7-17); Carbon Dioxide 27 mmol/L (22-30); Chloride 105 mmol/L (98-107); Estimated CRCL calculation 73 ml/min; Estimated Glomerular Filt Rate > 60; Glucose 101 mg/dL (65-110); Potassium 3.7 mmol/L (3.4-5.0); Sodium 140 mmol/L (137-145)
[2021-12-16] MEDS: ALBUTEROL SULFATE (*SP) AEROSOL 1 PUFF 2 PUFF INHALATION (08:10)
[2021-12-16] MEDS: FLUTICASONE/SALMETEROL 115-21 MCG INHALER 1 PUFF 2 PUFF INHALATION ×2 (08:11→20:11)
[2021-12-16 08:12] VITALS: PULSE 73; RESP 16
[2021-12-16] MEDS: ENOXAPARIN 40 MG/0.4 ML SYRINGE SUB-Q (10:00)
[2021-12-16] MEDS: FERROUS SULFATE 324 MG TABLET PO (10:00)
[2021-12-16] MEDS: guaiFENesin 12 HR 600 MG TABCR PO ×2 (10:00→20:27)
--- NOTE | 2021-12-16 11:49 | PM.IMPN ---
Progress Note: A&P Assessment and Plan (1) Bronchiectasis: Code(s): J47.9 - Bronchiectasis, uncomplicated Status: Acute Assessment and Plan: Patient referred to ED by wrecker driver for evaluation Chest CT reveals chronic centrilobular nodules and tree-in-bud opacities in the lower lung zones with slight interval worsening consistent with chronic infection and chronic bronchiectasis in the lower lung zones Sputum culture collected on 12/11 reveals heavy growth of Pseudomonas aeruginosa Preliminary AFB culture negative Fungal culture with growth of Blanka albicans rheumatoid factor is elevated. Anti CCP is pending as well as EDMUNDO screen. Appreciate pulmonology consultation continue home Symbicort and guaifenesin. Supportive care as needed (2) Bacterial infection due to Pseudomonas: Code(s): A49.8 - Other bacterial infections of unspecified site Status: Acute Assessment and Plan: to sputum culture with growth of Pseudomonas on 11/22 and 12/11, both sensitive to cefepime continue IV cefepime will need to continue with 2 g IV q.8 hours for total of 14 days. PICC line placed on 12/15 care coordination following to arrange home infusions (3) Right thyroid nodule: Code(s): E04.1 - Nontoxic single thyroid nodule Status: Acute Assessment and Plan: 1.8 cm right thyroid nodule incidentally noted on chest CT Will need outpatient follow-up for thyroid ultrasound Subjective Date/time seen: 12/16/21 11:49 Interval history: Date of service: 12/16/2021 Destiney Preston is a 56-year-old female with a history of bronchiectasis, ADD, anxiety who is seen in follow-up for bronchiectasis. Patient states she is very fatigued today and is trying to get some rest. She does believe that she is starting to feel a bit better today. previously endorsed a burning sensation in her chest that she states is improving. she endorses decreased sputum production today. Denies abdominal pain, nausea, or vomiting. Review of Systems Review of Systems: All systems reviewed & are unremarkable except as noted in HPI and below Exam Narrative: General: Well-nourished, well-appearing 56-year-old female, supine in bed, comfortable, NARD Neuro: awake, alert and oriented x4, speech clear, no focal neuro deficits noted HEENMT: normocephalic, atraumatic, EOMI, sclerae anicteric, moist oral mucosa Respiratory: Scattered rhonchi, no wheezing, nonlabored breathing, able to speak in complete sentences Cardio: regular rate, regular rhythm with S1-S2 Abdomen: nondistended, normoactive bowel sounds, soft, nontender to palpation Extremities: no edema, erythema, or tenderness to palpation, DP pulses 2+ bilaterally Skin: no rashes or lesions, warm and dry Psych: appropriate mood and affect, judgment and insight intact Objective Data Vital Signs Vital Signs: Vital Signs - 24 hr 12/15/21 14:30 12/15/21 21:10 12/15/21 20:30 Temperature 98.0 F 98.2 F Pulse Rate 95 88 Respiratory Rate 20 18 Blood Pressure 96/50 L 105/66 Pulse Oximetry 100 100 Oxygen Delivery Room Air 12/16/21 05:28 12/16/21 08:12 Temperature 98.2 F Pulse Rate 74 73 Respiratory Rate 18 16 Blood Pressure 101/56 L Pulse Oximetry 94 Oxygen Delivery Intake/Output Intake/Output: Intake & Output 12/13/21 12/14/21 12/15/21 12/16/21 23:59 23:59 23:59 23:59 Intake Total 490 340 Output Total 300 Balance 190 340 Meds/Results Medications: Active Medications Generic Name Dose Route Start Last Admin Trade Name Freq PRN Reason Stop Dose Admin Albuterol 2 puff 12/15/21 07:28 12/16/21 08:10 Albuterol Sulfate (*Sp) Aerosol 1 Puff INHALATION 2 puff Q6HRT PRN Administration Shortness Of Breath Enoxaparin Sodium 40 mg 12/16/21 09:00 12/16/21 10:00 Enoxaparin 40 Mg/0.4 Ml Syringe SUB-Q 40 mg DAILY DARIO Administration Ferrous Sulfate 324 mg 12/15/21 09:00
[2021-12-16 14:00] VITALS: BP 104/64; PULSE 94; RESP 14; TEMP 37; O2SAT 100
--- NOTE | 2021-12-16 14:25 | PM.PNPUL ---
Progress Note: A&P Assessment and Plan (1) Bronchiectasis: Code(s): J47.9 - Bronchiectasis, uncomplicated Status: Acute Assessment and Plan: She has a longstanding history of bronchiectasis thought to be idiopathic.? Of interest patient has an elevated rheumatoid factor. Pending is an anti CCP antibody and an EDMUNDO screen for 11 different auto antibodies. She is now on Symbicort equivalent of Advair 115-21 at 2 puffs q.12 hours.? Patient is on her baseline guaifenesin 600 mg p.o. q.12 hours. She knows that suppressing coughing is not recommended as this keeps the sputum and bacteria in the lungs. Good pulmonary toilet is weinberg to management of bronchiectasis. She now has a Cornet valve, and we discussed a vibratory vest for her to use at home. She has not been on inhalers at home, no vibratory valve, controller therapy. She will benefit from having an increased pulmonary hygiene program. Currently patient is on room air with saturations 97% (2) Bacterial infection due to Pseudomonas: Code(s): A49.8 - Other bacterial infections of unspecified site Status: Acute Assessment and Plan: She has grown Pseudomonas in sputum, now on IV Cefepime, waiting for a PICC line SaturdayDec 18, then will be able to go home on IV Rx for 2 weeks. Time Spent With Patient Time with patient: 15 - 25 minutes Subjective Date/time seen: 12/16/21 14:25 Interval history: Hospital follow up : Destiney Preston is a 56-year-old female followed in our Pulmonary Clinic for frequent respiratory infections and bronchiectasis which she has had for years beginning at age 24. During that time, the patient was diagnosed with pneumonia and underwent workup with bronchoscopy.? She was diagnosed with bronchiectasis, not related to cystic fibrosis, had a negative sweat test.? For period of approximately 10 years from the age of 34 through age of 44, patient did not have that many respiratory infections.? Over the last 7-10 years, she has had frequent bouts of bronchitis with sputum production and cough.? Respiratory condition has worsened, especially since last April.? Over the last 10 months, she has been treated with several courses of antibiotics including azithromycin and Levaquin.? She was recently treated for Levaquin after? sputum culture? had grown Pseudomonas.? Her last dose of Levaquin was 3 days ago.? The patient has chronic sputum production approximately? half a glass daily of green thick foul sputum. She often feels weak but has no fever, chills, hemoptysis, night sweats,?wheezing, or lower extremity edema.? She had multiple ill-defined nodules along with bronchiectasis in both lower lobes on an abdominal? CT done about 6 weeks ago. There was no evidence elevated eosinophilic count on recent CBC.? Sputum culture last month grew Pseudomonas sensitive to levofloxacin and ciprofloxacin.? Patient is a never smoker.? There is no history of respiratory disease in her family.? She never had history of asthma.? She has no history of exposure to occupational agents.? She has 3 children and 4 miscarriages. She is concerned about possible mold in a property that she rented in October for her [employer]. Years ago, she lived in a rental duplex with black mold behind cabinets. Currently, over the last 2 months has had a to decline in her health with worsening dyspnea on exertion, burning feeling in her chest and a more productive cough.? She denies fever, chills, rigors.? Patient had a sputum sample on 11/22/2021 with Pseudomonas resistant only to imipenem and sensitive to cefepime and levofloxacin.? Patient also had a sputum sample was Pseudomonas on 12/11/2021 that was resistant to ciprofloxacin and levofloxacin and sensitive to imipenem and cefepime. ? Patient called the clinic and arrangements were made for her to be admitted to the hospital
[2021-12-16 21:52] VITALS: BP 106/67; PULSE 84; RESP 16; TEMP 36.7; O2SAT 100
[2021-12-17 06:00] VITALS: BP 96/52; PULSE 89; RESP 16; TEMP 36.8; O2SAT 99
[2021-12-17] MEDS: FLUTICASONE/SALMETEROL 115-21 MCG INHALER 1 PUFF 2 PUFF INHALATION ×2 (08:41→20:14)
[2021-12-17] MEDS: guaiFENesin 12 HR 600 MG TABCR PO ×2 (10:01→21:08)
[2021-12-17] MEDS: FERROUS SULFATE 324 MG TABLET PO (10:01)
[2021-12-17] MEDS: ENOXAPARIN 40 MG/0.4 ML SYRINGE SUB-Q (10:01)
--- NOTE | 2021-12-17 10:58 | PM.IMPN ---
Progress Note: A&P Assessment and Plan (1) Bronchiectasis: Code(s): J47.9 - Bronchiectasis, uncomplicated Status: Acute Assessment and Plan: Patient referred to ED by boat ride operator for evaluation Chest CT reveals chronic centrilobular nodules and tree-in-bud opacities in the lower lung zones with slight interval worsening consistent with chronic infection and chronic bronchiectasis in the lower lung zones Sputum culture collected on 12/11 reveals heavy growth of Pseudomonas aeruginosa Preliminary AFB culture negative Fungal culture with growth of Blanka albicans rheumatoid factor is elevated. Anti CCP is pending as well as EDMUNDO screen. Appreciate pulmonology consultation continue home Symbicort and guaifenesin. Supportive care as needed (2) Bacterial infection due to Pseudomonas: Code(s): A49.8 - Other bacterial infections of unspecified site Status: Acute Assessment and Plan: two sputum cultures with growth of Pseudomonas on 11/22 and 12/11, both sensitive to cefepime continue IV cefepime will need to continue with 2 g IV q.8 hours for total of 14 days. care coordination following to arrange home infusions (3) Right thyroid nodule: Code(s): E04.1 - Nontoxic single thyroid nodule Status: Acute Assessment and Plan: 1.8 cm right thyroid nodule incidentally noted on chest CT Will need outpatient follow-up for thyroid ultrasound Subjective Date/time seen: 12/17/21 10:58 Interval history: Date of service: 12/16/2021 Destiney Preston is a 56-year-old female with a history of bronchiectasis, ADD, anxiety who is seen in follow-up for bronchiectasis. she was sleeping. States she feels fatigued. She is feeling a little better today. States her cough and sputum production has lessened. Chest tightness/discomfort significantly improved. Review of Systems Review of Systems: All systems reviewed & are unremarkable except as noted in HPI and below Exam Narrative: General: Well-nourished, well-appearing 56-year-old female, supine in bed, comfortable, NARD Neuro: awake, alert and oriented x4, speech clear, no focal neuro deficits noted HEENMT: normocephalic, atraumatic, EOMI, sclerae anicteric, moist oral mucosa Respiratory: Scattered rhonchi, no wheezing, nonlabored breathing, able to speak in complete sentences Cardio: regular rate, regular rhythm with S1-S2 Abdomen: nondistended, normoactive bowel sounds, soft, nontender to palpation Extremities: no edema, erythema, or tenderness to palpation, DP pulses 2+ bilaterally Skin: no rashes or lesions, warm and dry Psych: appropriate mood and affect, judgment and insight intact Objective Data Vital Signs Vital Signs: Vital Signs - 24 hr 12/16/21 14:00 12/16/21 19:57 12/16/21 21:52 Temperature 98.6 F 98.1 F Pulse Rate 94 84 Respiratory Rate 14 16 Blood Pressure 104/64 106/67 Pulse Oximetry 100 100 Oxygen Delivery Room Air 12/17/21 06:00 Temperature 98.3 F Pulse Rate 89 Respiratory Rate 16 Blood Pressure 96/52 L Pulse Oximetry 99 Oxygen Delivery Intake/Output Intake/Output: Intake & Output 12/14/21 12/15/21 12/16/21 12/17/21 23:59 23:59 23:59 23:59 Intake Total 490 1360 490 Output Total 300 Balance 190 1360 490 Meds/Results Medications: Active Medications Generic Name Dose Route Start Last Admin Trade Name Freq PRN Reason Stop Dose Admin Albuterol 2 puff 12/15/21 07:28 12/16/21 08:10 Albuterol Sulfate (*Sp) Aerosol 1 Puff INHALATION 2 puff Q6HRT PRN Administration Shortness Of Breath Enoxaparin Sodium 40 mg 12/16/21 09:00 12/17/21 10:01 Enoxaparin 40 Mg/0.4 Ml Syringe SUB-Q 40 mg DAILY DARIO Administration Ferrous Sulfate 324 mg 12/15/21 09:00 12/17/21 10:01 Ferrous Sulfate 324 Mg Tablet PO 324 mg QAM DARIO Administration Guaifenesin 600 mg 12/15/21 09:00 12/17/21 10:01 Guaifenesin 12 Hr 600 Mg Tabcr P
[2021-12-17 14:40] VITALS: BP 114/64; PULSE 80; RESP 16; TEMP 36.3; O2SAT 100
--- NOTE | 2021-12-17 18:30 | PM.PNPUL ---
Progress Note: A&P Assessment and Plan (1) Bronchiectasis: Code(s): J47.9 - Bronchiectasis, uncomplicated Status: Acute Assessment and Plan: She has a longstanding history of bronchiectasis thought to be idiopathic.? Of interest patient has an elevated rheumatoid factor. Pending is an anti CCP antibody and an EDMUNDO screen for 11 different auto antibodies. She is now on Symbicort equivalent of Advair 115-21 at 2 puffs q.12 hours.? Patient is on her baseline guaifenesin 600 mg p.o. q.12 hours. She knows that suppressing coughing is not recommended as this keeps the sputum and bacteria in the lungs. Good pulmonary toilet is weinberg to management of bronchiectasis. She now has a Cornet valve, and we discussed a vibratory vest for her to use at home. She has not been on inhalers at home, no vibratory valve, controller therapy. She will benefit from having an increased pulmonary hygiene program. Currently she remains on room air with saturations 97% (2) Bacterial infection due to Pseudomonas: Code(s): A49.8 - Other bacterial infections of unspecified site Status: Acute Assessment and Plan: She has grown Pseudomonas in sputum, now on IV Cefepime, waiting for a PICC line SaturdayDec 18, then will be able to go home on IV Rx for 2 weeks. Subjective Date/time seen: 12/17/21 18:30 Interval history: Hospital follow up : Destiney Preston is a 56-year-old female followed in our Pulmonary Clinic for frequent respiratory infections and bronchiectasis which she has had for years beginning at age 24. During that time, the patient was diagnosed with pneumonia and underwent workup with bronchoscopy.? She was diagnosed with bronchiectasis, not related to cystic fibrosis, had a negative sweat test.? For period of approximately 10 years from the age of 34 through age of 44, patient did not have that many respiratory infections.? Over the last 7-10 years, she has had frequent bouts of bronchitis with sputum production and cough.? Respiratory condition has worsened, especially since last April.? Over the last 10 months, she has been treated with several courses of antibiotics including azithromycin and Levaquin.? She was recently treated for Levaquin after? sputum culture? had grown Pseudomonas.? Her last dose of Levaquin was 3 days ago.? The patient has chronic sputum production approximately? half a glass daily of green thick foul sputum. She often feels weak but has no fever, chills, hemoptysis, night sweats,?wheezing, or lower extremity edema.? She had multiple ill-defined nodules along with bronchiectasis in both lower lobes on an abdominal? CT done about 6 weeks ago. There was no evidence elevated eosinophilic count on recent CBC.? Sputum culture last month grew Pseudomonas sensitive to levofloxacin and ciprofloxacin.? Patient is a never smoker.? There is no history of respiratory disease in her family.? She never had history of asthma.? She has no history of exposure to occupational agents.? She has 3 children and 4 miscarriages. She is concerned about possible mold in a property that she rented in October for her [employer]. Years ago, she lived in a rental duplex with black mold behind cabinets. Currently, over the last 2 months has had a to decline in her health with worsening dyspnea on exertion, burning feeling in her chest and a more productive cough.? She denies fever, chills, rigors.? Patient had a sputum sample on 11/22/2021 with Pseudomonas resistant only to imipenem and sensitive to cefepime and levofloxacin.? Patient also had a sputum sample was Pseudomonas on 12/11/2021 that was resistant to ciprofloxacin and levofloxacin and sensitive to imipenem and cefepime. ? Patient called the clinic and arrangements were made for her to be admitted to the hospital for treatment of the Pseudomonas with IV cefepime.? Patient
[2021-12-17 20:16] VITALS: PULSE 71; RESP 14
[2021-12-17 23:00] VITALS: BP 127/59; PULSE 96; RESP 21; TEMP 36.4; O2SAT 100
[2021-12-18 06:00] VITALS: BP 107/65; PULSE 81; RESP 20; TEMP 36.3; O2SAT 99
[2021-12-18 07:47] LABS: Anion Gap 11 mmol/L (8-16); Blood Urea Nitrogen 12 mg/dL (7-17); Calcium 8.3 mg/dL (8.4-10.2); Carbon Dioxide 26 mmol/L (22-30); Chloride 107 mmol/L (98-107); Estimated CRCL calculation 84 ml/min; Estimated Glomerular Filt Rate > 60; Glucose 93 mg/dL (65-110); Potassium 3.7 mmol/L (3.4-5.0); Sodium 144 mmol/L (137-145)
[2021-12-18] MEDS: FERROUS SULFATE 324 MG TABLET PO (09:35)
[2021-12-18] MEDS: guaiFENesin 12 HR 600 MG TABCR PO (09:35)
[2021-12-18] MEDS: ENOXAPARIN 40 MG/0.4 ML SYRINGE SUB-Q (09:35)
[2021-12-18] MEDS: FLUTICASONE/SALMETEROL 115-21 MCG INHALER 1 PUFF 2 PUFF INHALATION (10:01)
--- NOTE | 2021-12-18 11:19 | PM.PNPUL ---
Progress Note: A&P Assessment and Plan (1) Bronchiectasis: Code(s): J47.9 - Bronchiectasis, uncomplicated Status: Acute Assessment and Plan: She has a longstanding history of bronchiectasis thought to be idiopathic.? Of interest patient has an elevated rheumatoid factor. Pending is an anti CCP antibody and an EDMUNDO screen for 11 different auto antibodies. She is now on Symbicort equivalent of Advair 115-21 at 2 puffs q.12 hours.? Patient is on her baseline guaifenesin 600 mg p.o. q.12 hours. She knows that suppressing coughing is not recommended as this keeps the sputum and bacteria in the lungs. Good pulmonary toilet is weinberg to management of bronchiectasis. She now has a Cornet valve, and we discussed a vibratory vest for her to use at home. She has not been on inhalers at home, no vibratory valve, controller therapy. She will benefit from having an increased pulmonary hygiene program. Currently she remains on room air with saturations 97%. 12/18 Patient states she continues to improve. The burning feeling in her chest is gone. The sick and run down feeling is gone. She is walking better. She is producing less phlegm and this is now yellow and not green. She is afebrile. She is scheduled to receive a midline later today. Room air saturations 100%. From a pulmonary perspective patient is suitable for discharge on these Pulmonary medications: Cefepime 2 g IV q.8 hours through 12/29/2021. Symbicort 160-4.5 at 2 puffs Q 12 hours. MucinexER 600 mg PO BID Cornet flutter valve q.4 hours while awake consideration of vibratory vest when she follows up as an outpatient. After finishes cefepime will start azithromycin 500 mg PO TIW (please write prescription on discharge). Follow up pulmonary clinic in 6 weeks. (2) Bacterial infection due to Pseudomonas: Code(s): A49.8 - Other bacterial infections of unspecified site Status: Acute Assessment and Plan: She has grown Pseudomonas in sputum, now on IV Cefepime, waiting for a midline SaturdayDec 18, then will be able to go home on IV Rx for 2 weeks. Subjective Date/time seen: 12/18/21 11:19 Interval history: Hospital follow up : Destiney Preston is a 56-year-old female followed in our Pulmonary Clinic for frequent respiratory infections and bronchiectasis which she has had for years beginning at age 24. During that time, the patient was diagnosed with pneumonia and underwent workup with bronchoscopy.? She was diagnosed with bronchiectasis, not related to cystic fibrosis, had a negative sweat test.? For period of approximately 10 years from the age of 34 through age of 44, patient did not have that many respiratory infections.? Over the last 7-10 years, she has had frequent bouts of bronchitis with sputum production and cough.? Respiratory condition has worsened, especially since last April.? Over the last 10 months, she has been treated with several courses of antibiotics including azithromycin and Levaquin.? She was recently treated for Levaquin after? sputum culture? had grown Pseudomonas.? Her last dose of Levaquin was 3 days ago.? The patient has chronic sputum production approximately? half a glass daily of green thick foul sputum. She often feels weak but has no fever, chills, hemoptysis, night sweats,?wheezing, or lower extremity edema.? She had multiple ill-defined nodules along with bronchiectasis in both lower lobes on an abdominal? CT done about 6 weeks ago. There was no evidence elevated eosinophilic count on recent CBC.? Sputum culture last month grew Pseudomonas sensitive to levofloxacin and ciprofloxacin.? Patient is a never smoker.? There is no history of respiratory disease in her family.? She never had history of asthma.? She has no history of exposure to occupational agents.? She has 3 children and 4 miscarriages. She is c
--- NOTE | 2021-12-18 11:27 | ECG_ITS ---
Measurements Intervals [place] Rate: 69 P: 80 SD: 153 QRS: 63 QRSD: 97 T: 59 QT: 382 QTc: 411 Interpretive Statements SINUS RHYTHM NORMAL ECG NO PREVIOUS ECG AVAILABLE FOR COMPARISON Electronically Signed On 12-18-2021 16:56:54 CDT by Eliot Morales D.O.
--- NOTE | 2021-12-18 12:57 | PM.DS ---
DS: Admitting Diagnosis Discharge Date 12/18/2021 Admitting Diagnosis bronchiectasis DS: Discharge Diagnosis Discharge Diagnosis (1) Bronchiectasis: Code(s): J47.9 - Bronchiectasis, uncomplicated Status: Acute Assessment and Plan: Patient referred to ED by director reactor projects for evaluation Chest CT revealed chronic centrilobular nodules and tree-in-bud opacities in the lower lung zones with slight interval worsening consistent with chronic infection and chronic bronchiectasis in the lower lung zones Sputum culture collected on 12/11 with heavy growth of Pseudomonas aeruginosa Preliminary AFB culture negative Fungal culture with growth of Blanka albicans rheumatoid factor is elevated. Anti CCP is pending as well as EDMUNDO screen. patient seen in consultation by pulmonology. will follow-up in the clinic to review results including anti CCP and EDMUNDO continue home Symbicort guaifenesin 600 mg b.i.d. Cornet valve every 4 hours while awake. will follow-up outpatient to consider vibratory vest (2) Bacterial infection due to Pseudomonas: Code(s): A49.8 - Other bacterial infections of unspecified site Status: Acute Assessment and Plan: two sputum cultures with growth of Pseudomonas on 11/22 and 12/11, both sensitive to cefepime managed with IV cefepime during admission which will be continued as an outpatient for total of 14 days of therapy. Home health arranged per care coordination to continue outpatient antibiotic infusions following completion of cefepime, patient will start azithromycin 500 mg 3 times a week per pulmonology recommendations (3) Right thyroid nodule: Code(s): E04.1 - Nontoxic single thyroid nodule Status: Acute Assessment and Plan: 1.8 cm right thyroid nodule incidentally noted on chest CT Will need outpatient follow-up for thyroid ultrasound. patient aware of need for follow-up to arrange ultrasound DS: Summary Hospital Course Hospital Course: date of admission: 12/15/2021 date of discharge: 12/18/2021 Destiney Preston is a 56-year-old female with a history of bronchiectasis, ADD, anxiety who presented to the emergency department on 12/15/2021 at the direction of her director reactor projects after having an outpatient sputum culture which revealed Pseudomonas. In the ED, her vital signs were stable, she was afebrile, maintaining adequate oxygen saturation on room air, laboratory workup unremarkable, and chest x-ray revealed minimal airspace opacities of the lung bases.?? she was admitted to the hospitalist service for further evaluation and management was seen in consultation by pulmonology. Please see above for further details. Outpatient antibiotic infusions were arranged which will be continued for 2 weeks and patient will follow-up with pulmonology in the interim. Patient agreeable with plan and felt comfortable with discharge home. She was discharged in hemodynamically stable condition on 12/18/2021. Status at Discharge Functional status at discharge: independent ambulation Time Spent with Patient Time attestation: Total time spent providing and/or coordinating discharge services: 45 minutes Time spent: Greater than 30 minutes Exam Narrative: General: Well-nourished, well-appearing 56-year-old female, supine in bed, comfortable, NARD Neuro: awake, alert and oriented x4, speech clear, no focal neuro deficits noted HEENMT: normocephalic, atraumatic, EOMI, sclerae anicteric, moist oral mucosa Respiratory: Scattered rhonchi, no wheezing, nonlabored breathing, able to speak in complete sentences Cardio: regular rate, regular rhythm with S1-S2 Abdomen: nondistended, normoactive bowel sounds, soft, nontender to palpation Extremities: no edema, erythema, or tenderness to palpation, DP pulses 2+ bilaterally Skin: no rashes or lesions, warm and dry Psych: appropriate mood and affect, judgment and insight intact DS: Data Data Completed and Pendin
[2021-12-18] MEDS: LIDOCAINE HCL 1% LOCAL INJ 2 ML AMPUL 5 ML INFILTRATE (13:15)
[2021-12-18 14:00] VITALS: BP 128/60; PULSE 84; RESP 20; TEMP 36.4; O2SAT 97
[2021-12-18] MEDS: SALINE LOCK FLUSH 10 ML IV PUSH (15:35)
[2021-12-19 10:53] LABS: ANA Cascade Screen Negative (Negative)
[2021-12-20 12:55] LABS: Anti Cyclic Citrullinated Pept <16 Units (<20)
== END 2021-12-18 17:07 | disposition home health service (06) | DRG 140 ==
LOC: ANHED 12-15 00:31 → ANH2MED 12-15 04:23
PROVIDERS: Emergency Medicine; Internal Medicine Pulmonary Disease; Physician Assistant; Admitting Provider Internal Medicine; Emergency Provider Emergency Medicine; Visit Provider Family Medicine
DX: J47.9 Bronchiectasis, uncomplicated (principal); B96.5 Pseudomonas (aeruginosa) (mallei) (pseudomallei) as the cause of diseases classified elsewhere; E04.1 Nontoxic single thyroid nodule; F98.8 Other specified behavioral and emotional disorders with onset usually occurring in childhood and adolescence; F41.9 Anxiety disorder, unspecified; Z20.822 Contact with and (suspected) exposure to COVID-19; Z79.899 Other long term (current) drug therapy
CPT/HCPCS: 36415; 36569; 71045; 71250; 80048; 80053; 81003; 83605; 85025; 85027; 85610; 85730; 86038; 86200; 87040; 93005; 94640; 94667; 94668; 96365; 96366; 96372; 99285; A9270; C1751; C9803; G0378; G0379; J0692; J1650; U0003; U0005

== ENCOUNTER 2021-12-20 11:48 | Outpatient (NON) | payer OTHER, SELFPAY ==
[2021-12-20 12:00] LABS: Basophils Percent Auto 0.4 % (0.2-1.2); Eosinophils Absolute Auto 0.2 K/mm3 (0-0.3); Eosinophils Percent Auto 3.6 % (0-4.4); Hematocrit 41.7 % (37.0-47.0); Hemoglobin 13.6 g/dL (12.0-15.0); Immature Granulocyte Absolute 0.02 K/mm3 (0.00-0.031); Immature Granulocyte Percent A 0.4 % (0-0.5); Lymphocytes Absolute Auto 1.76 K/mm3 (0.9-3.2); Mean Corpuscular HGB Conc 32.6 g/dl (32-36); Mean Corpuscular Hemoglobin 30.5 pg (26-34); Mean Corpuscular Volume 93.5 fl (80-100); Mean Platelet Volume 9.6 fl (7.4-10.4); Monocytes Absolute Auto 0.3 K/mm3 (0.1-0.6); Monocytes Percent Auto 6.4 % (2.6-8.5); Neutrophils Percent Auto 56.2 % (45.5-73.1); Platelet Count Result 264 k/mm3 (150-375); Red Blood Count 4.46 M/mm3 (4.2-5.4); Red Cell Distribution Width 13.5 % (11.5-14.5); White Blood Count 5.3 K/mm3 (4.5-10.0)
[2021-12-20 12:27] LABS: Alanine Aminotransferase 32 U/L (6-35); Albumin Level 3.8 g/dL (3.5-5.1); Alkaline Phosphatase 55 U/L (38-126); Anion Gap 11 mmol/L (8-16); Aspartate Amino Transferase 33 U/L (14-36); Bilirubin,Total 0.4 mg/dL (0.2-1.3); Blood Urea Nitrogen 17 mg/dL (7-17); Calcium 8.8 mg/dL (8.4-10.2); Carbon Dioxide 27 mmol/L (22-30); Chloride 103 mmol/L (98-107); Estimated Glomerular Filt Rate > 60; Glucose 104 mg/dL (65-110); Potassium 3.9 mmol/L (3.4-5.0); Sodium 141 mmol/L (137-145)
== END 2021-12-20 11:49 | disposition home or self-care (01) ==
LOC: HOME HLTH 11:50
PROVIDERS: Visit Provider Family Medicine
DX: J47.9 Bronchiectasis, uncomplicated (principal)
CPT/HCPCS: 80053; 85025

== ENCOUNTER 2021-12-21 10:00 | Emergency (ER) | payer OTHER, SELFPAY ==
[2021-12-21 10:12] VITALS: BP 113/72; PULSE 73; RESP 18; TEMP 36.4; O2SAT 100
--- NOTE | 2021-12-21 11:50 | PC.NURSE ---
EDP at bedside to assess.
--- NOTE | 2021-12-21 12:03 | ED.GENADULT ---
HPI - General Adult General Chief complaint: Unspecified Stated complaint: PICC won't flush Time Seen by Provider: 12/21/21 11:04 History of Present Illness HPI narrative: 56-year-old female history of bronchiectasis and Pseudomonas who is receiving antibiotics via PICC line infusions presents to the emergency room due to an obstructed PICC line. Patient receives antibiotic infusions at home and this morning was unable to complete her course of antibiotics. Patient was instructed by her home health care nurse to come to the emergency room to have her line flushed. Related Data Home Medications Medication Instructions Recorded Confirmed ferrous sulfate 325 mg (65 mg 325 mg PO QAM 08/10/21 12/15/21 iron) tablet trazodone 50 mg tablet 50 - 100 mg PO HS PRN Insomnia 08/10/21 12/15/21 budesonide-formoterol HFA 160 2 puff inhalation Q12H PRN 12/15/21 12/15/21 mcg-4.5 mcg/actuation aerosol shortness of breath inhaler (Symbicort) Allergies Allergy/AdvReac Type Severity Reaction Status Date / Time hepatitis B virus vaccine Allergy Unknown Anxiety Verified 12/21/21 09:23 hydroxyzine Allergy Unknown Unknown Verified 12/21/21 09:23 Penicillins Allergy Unknown Unknown Verified 12/21/21 09:23 azithromycin Allergy stomach Verified 12/21/21 09:23 Review of Systems Review of Systems: CONSTITUTIONAL: Denies fever, chills, or sweats. EYES: Denies visual changes, redness, or discharge. ENT: Denies rhinorrhea, congestion, sore throat, or otalgia. CARDIOVASCULAR: Denies chest pain, palpitations, or edema. RESPIRATORY: Denies cough or dyspnea. GASTROINTESTINAL: Denies abdominal pain, nausea, vomiting, or diarrhea. GENITOURINARY: Denies dysuria or hematuria. SKIN: Denies rash or itching. MUSCULOSKELETAL: Denies back pain, joint pain, or myalgia. NEUROLOGIC: Denies headache, numbness, dizziness, or weakness. PSYCHIATRIC: Denies anxiety or depression. [facility] Past Medical History Medical History ADD (attention deficit disorder) Anxiety disorder, unspecified Bronchiectasis at age 22 Surgical History Surgical History History of back surgery Disc replacement surgery History of dilation and curettage History of myomectomy Hx of breast implants, bilateral Hx of tonsillectomy Family History Family History Grandparent Acute myocardial infarction Other Pancreas cancer Breast cancer Other Brain cancer Social History Social History Social History: Patient lives at home with her 2 daughters. Her of brain cancer. 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 She is independent in her daily activities. She designates her daughters, Mishel and Meg, as her surrogate decision maker. She is a full code. Smoking status: Never smoker Alcohol intake: current Alcohol use details: 1-2 drinks/month Substance use type: marijuana Other substance usage details: Marijuana gummy once/week Spiritual care concerns: No Exam Narrative: GENERAL: Well-appearing, well-nourished, no physical limitations, and in no acute distress. HEAD: Normocephalic, atraumatic. EYES: Conjunctivae normal, PERRLA and EOMI. CHEST: Clear to auscultation. No respiratory distress. No wheezes rales or rhonchi. No tenderness. HEART: Regular rate and rhythm. No murmur heard. Normal peripheral pulses. EXTREMITIES: Normal range of motion. No edema. No clubbing or cyanosis SKIN: Warm, dry, no rash. No noted wounds NEURO: No focal deficits. Alert and oriented x3. MAEW. CN's II-XI intact bilaterally, normal gait PSYCH: Cooperative. Normal mood and affect. Course Vital Signs Vital signs: Vital Signs Temperature 36.4 C 12/21/21 10:12 Pulse Rate 73 12/21/21 10:12 Respiratory Rate 18 12/21/21 10:12 Blood Pressure 113/72
[2021-12-24 15:14] LABS: Immunoglobulin G, Serum 754 mg/dL (600-1640); Immunoglobulin G1 463 mg/dL (382-929); Immunoglobulin G2 189 mg/dL (241-700); Immunoglobulin G3 89 mg/dL (22-178); Immunoglobulin G4 5.5 mg/dL (4.0-86.0)
== END 2021-12-21 12:56 | disposition home or self-care (01) ==
PROVIDERS: Emergency Provider Nurse Practitioner Family; PCP Emergency Medicine
DX: T82.594A Other mechanical complication of infusion catheter, initial encounter (principal); F98.8 Other specified behavioral and emotional disorders with onset usually occurring in childhood and adolescence; F41.9 Anxiety disorder, unspecified; Y82.8 Other medical devices associated with adverse incidents; Y84.8 Other medical procedures as the cause of abnormal reaction of the patient, or of later complication, without mention of misadventure at the time of the procedure
CPT/HCPCS: 36415; 82784; 82787; 99283

== ENCOUNTER 2021-12-25 14:16 | Outpatient (CLI) | payer OTHER, SELFPAY ==
--- NOTE | 2021-12-15 04:06 | PC.NURSE ---
0030called Dr Marlow for Admission. She returned call at 0055. Rika
--- NOTE | 2021-12-26 07:05 | WPDPFTINT ---
PFT Procedure Performed PFT Procedure Performed Spirometry with Pre/Post Bronchodilator Plethysmography (Lung Vol) Diffusing Cap (DLCO) Flow Vol Loop PFT Interpretation This is a pulmonary function test with pre and post-bronchodilator spirometry, plethysmography and diffusing capacity. The test was performed and results interpreted in accordance with the 2019 and 2005 ATS/ERS Task Force guidelines respectively using the Global Lung Function Initiative-2012 reference equations. Patient demonstrated good effort and cooperation. Reproducibility criteria were met. The quality of the pre bronchodilator spirometry maneuver was Grade A and post bronchodilator spirometry maneuver was Grade A. Findings: Spirometry: The contour the inspiratory and expiratory flow tracing are normal. The pre bronchodilator FVC is 3.32 L, 92% predicted. The pre bronchodilator FEV1 is 2.37 L, 83% predicted. The pre bronchodilator FEV1: FVC ratio is 71%. The post bronchodilator FVC is 3.40 L, representing a 2% increase. The post bronchodilator FEV1 is 2.35 L, representing 1% decrease. The post bronchodilator FEV1: FVC ratio 69%. Plethysmography: The total lung capacity is 5.90, 110% predicted. Functional residual capacity is 3.87 L, 128% predicted. The residual volume is 2.58 L, 130% predicted. Diffusion capacity: The diffusion capacity unadjusted for hemoglobin and carboxyhemoglobin is 22.6, 98% predicted. The diffusing capacity adjusted for alveolar volume is 4.50, 101% predicted. Impression: The spirometry is normal without evidence of an obstructive abnormality. There is no significant improvement after inhaling a single dose of albuterol. The lung volumes are normal. The diffusing capacity is normal. There are no prior studies for comparison
== END 2021-12-25 14:17 | disposition home or self-care (01) ==
LOC: ANHPFT 14:17
PROVIDERS: PCP Emergency Medicine; Visit Provider Internal Medicine Pulmonary Disease
DX: J47.9 Bronchiectasis, uncomplicated (principal)
CPT/HCPCS: 80053; 85025; 94060; 94726; 94729

== ENCOUNTER 2022-05-16 06:37 | Outpatient (CLI) | payer OTHER, SELFPAY ==
[2022-05-16 07:05] VITALS: BMI 21.3
[2022-05-16 07:10] VITALS: BP 105/72; PULSE 83; RESP 14; TEMP 36.3; O2SAT 99
== END 2022-05-16 06:38 | disposition home or self-care (01) ==
PROVIDERS: PCP Emergency Medicine; Visit Provider Internal Medicine Pulmonary Disease
DX: Z45.09 Encounter for adjustment and management of other cardiac device (principal)
CPT/HCPCS: 36415; 36569; 85025; 96365; C1751; J0692

== ENCOUNTER 2022-05-16 15:44 | Outpatient (CLI) | payer OTHER, SELFPAY ==
[2022-05-16 15:50] LABS: Basophils Percent Auto 0.4 % (0.2-1.2); Eosinophils Absolute Auto 0.2 K/mm3 (0-0.3); Eosinophils Percent Auto 1.4 % (0-4.4); Hematocrit 41.4 % (37.0-47.0); Hemoglobin 13.5 g/dL (12.0-15.0); Immature Granulocyte Absolute 0.02 K/mm3 (0.00-0.031); Immature Granulocyte Percent A 0.2 % (0-0.5); Lymphocytes Absolute Auto 1.78 K/mm3 (0.9-3.2); Lymphocytes Percent Auto 16.6 % (18.3-44.2); Mean Corpuscular HGB Conc 32.6 g/dl (32-36); Mean Corpuscular Hemoglobin 30.7 pg (26-34); Mean Corpuscular Volume 94.1 fl (80-100); Mean Platelet Volume 9.1 fl (7.4-10.4); Monocytes Absolute Auto 0.5 K/mm3 (0.1-0.6); Neutrophils Absolute Auto 8.2 K/mm3 (1.3-6.7); Neutrophils Percent Auto 76.4 % (45.5-73.1); Platelet Count Result 288 k/mm3 (150-375); Red Cell Distribution Width 13.2 % (11.5-14.5); White Blood Count 10.7 K/mm3 (4.5-10.0)
== END 2022-05-16 15:45 | disposition home or self-care (01) ==
LOC: ANHLAB 15:45
PROVIDERS: Nurse Practitioner Family; Visit Provider Internal Medicine Pulmonary Disease
DX: A49.8 Other bacterial infections of unspecified site (principal); J98.8 Other specified respiratory disorders
CPT/HCPCS: 36415; 85025

== ENCOUNTER 2022-05-17 14:12 | Outpatient (NON) | payer OTHER, SELFPAY ==
[2022-05-17 15:51] LABS: Alanine Aminotransferase 24 U/L (6-35); Albumin Level 4.1 g/dL (3.5-5.1); Alkaline Phosphatase 67 U/L (38-126); Anion Gap 2 mmol/L (8-16); Aspartate Amino Transferase 30 U/L (14-36); Bilirubin,Total 0.5 mg/dL (0.2-1.3); Blood Urea Nitrogen 16 mg/dL (7-17); Calcium 8.5 mg/dL (8.4-10.2); Carbon Dioxide 29 mmol/L (22-30); Chloride 103 mmol/L (98-107); Estimated Glomerular Filt Rate > 60; Glucose 91 mg/dL (65-110); Potassium 4.1 mmol/L (3.4-5.0); Sodium 134 mmol/L (137-145)
== END 2022-05-17 14:13 | disposition home or self-care (01) ==
LOC: ANHLAB 14:26 → HOME HLTH 14:28
PROVIDERS: Visit Provider Nurse Practitioner Family
DX: A49.8 Other bacterial infections of unspecified site (principal); J98.8 Other specified respiratory disorders; J47.9 Bronchiectasis, uncomplicated
CPT/HCPCS: 80053

== ENCOUNTER 2022-09-07 12:23 | Outpatient (CLI) | payer OTHER, SELFPAY | END 2022-09-07 12:24 | disposition home or self-care (01) | LOC: ANHLAB 12:25 | PROVIDERS: Visit Provider Internal Medicine Pulmonary Disease | DX: J47.9 Bronchiectasis, uncomplicated (principal) | CPT/HCPCS: 87070; 87205 ==

== ENCOUNTER 2022-12-24 09:37 | Outpatient (CLI) | payer OTHER, SELFPAY ==
[2022-12-24 19:16] LABS: Free T4 Free Thyroxine 0.96 ng/mL (0.78-2.19); Total Triiodothyronine (T3) 1.26 NG/ML (0.97-1.69)
== END 2022-12-24 09:38 | disposition home or self-care (01) ==
LOC: ANHGOSHLAB 09:38
PROVIDERS: PCP Emergency Medicine; Visit Provider Emergency Medicine
DX: E04.1 Nontoxic single thyroid nodule (principal)
CPT/HCPCS: 36415; 84439; 84443; 84480

== ENCOUNTER 2023-04-24 12:31 | Outpatient (CLI) | payer OTHER, SELFPAY ==
[2023-04-24 14:48] LABS: Influenza A QL RT-PCR Negative (Negative); Influenza B QL RT-PCR Negative (Negative); RSV RNA, RT-PCR Negative (Negative); SARS-CoV-2 RNA PCR Negative (Negative)
== END 2023-04-24 12:32 | disposition home or self-care (01) ==
LOC: ANHGOSHLAB 12:33
PROVIDERS: PCP Emergency Medicine; Visit Provider Emergency Medicine
DX: J02.9 Acute pharyngitis, unspecified (principal)
CPT/HCPCS: 71046; 87081; 87637

== ENCOUNTER 2023-04-24 14:33 | Outpatient (CLI) | payer OTHER, SELFPAY ==
--- NOTE | ~2023-04-24 | XR_ITS ---
XR chest 2V 04/24/2023 14:54 Indication: Atelectasis. Cough and shortness of breath. Procedure: 2 view chest Comparison: Comparison to multiple prior studies sequentially, with oldest reviewed study dated 08/29. Findings: Heart size normal. Coarse chronic interstitial changes of the lung bases with bronchiectasi s. No pleural effusion or pneumothorax. No acute osseous abnormality. Impression: 1: Stable coarse chronic interstitial infiltrates of the lung bases with bronchiectasis. Reviewed, dictated and finalized at location B. DESTRUCTIVE EVALUATION SPECIALIST Impression: 1: Stable coarse chronic interstitial infiltrates of the lung bases with bronch iectasis.
== END 2023-04-24 14:34 | disposition home or self-care (01) ==
PROVIDERS: PCP Emergency Medicine; Visit Provider Emergency Medicine
DX: J47.9 Bronchiectasis, uncomplicated (principal); R91.8 Other nonspecific abnormal finding of lung field
CPT/HCPCS: 71046

== ENCOUNTER 2023-09-18 13:02 | Emergency (ER) | payer OTHER, SELFPAY ==
[2023-09-18] VITALS (8 sets, daily range): BP systolic 94–124; BP diastolic 63–76; PULSE 104–110; RESP 14–30; TEMP 37.9; O2SAT 96–100
--- NOTE | ~2023-09-18 | XR_ITS ---
EXAMINATION: XR chest 2V DATE: 09/18/2023 14:18 INDICATION: Shortness of breath TECHNIQUE: PA and lateral views of the chest were obtained. COMPARISON: Chest radiograph dated 04/24/[address] dated 12/15/2021 FINDINGS: Persistent interstitial and mild airspace opacities in the bilateral lower lung zones. No pleural eff usion or pneumothorax. Heart size is normal. Mild thoracic spondylosis. Bilateral breast implants. IMPRESSION: 1. Persistent interstitial and airspace opacities in the bilateral lower lung zones which could repre sent pulmonary edema, pneumonia, chronic interstitial lung disease with bronchiectatic changes better appreciated on prior CT or some combination thereof. Reviewed, dictated and finalized at location A. IMPRESSION: 1. Persistent interstitial and airspace opacities in the bilateral lower lung z ones which could represent pulmonary edema, pneumonia, chronic interstitial celia g disease with bronchiectatic changes better appreciated on prior CT or some co mbination thereof.
--- NOTE | 2023-09-18 13:19 | ECG_ITS ---
Test Date: 2023-09-18 13:28:02 Measurements Intervals [place] Rate: 112 P: 73 [place]: 144 QRS: 56 QRSD: 81 T: 64 QT: 306 QTc: 418 Interpretive Statements SINUS TACHYCARDIA POSSIBLE LEFT ATRIAL ENLARGEMENT [-0.1mV P-WAVE IN V1/V2] NONSPECIFIC ST AND T-WAVE ABNORMALITY ABNORMAL ECG No previous ECG available for comparison Electronically Signed On 09-18-2023 15:17:44 CDT by Santhosh Whitney M.D.
--- NOTE | 2023-09-18 13:57 | ED.SOB ---
HPI - SOB/Dyspnea General Chief Complaint: Shortness of Breath/Dyspnea Stated Complaint: sob Time Seen by Provider: 09/18/23 13:51 History of Present Illness HPI Narrative: Patient is a 58 year old with history of bronchiectasis, follows at [facility] here with flu like symptoms. Patient notes that she has been feeling quite well with her bronchiectasis, was on inhaled Tobramycin all of June on a 30 day on and 30 day off schedule. She was having some ear ringing so did not restart her Tobramycin in August and has a scheduled follow up appointment with her vp compliance at [facility] in September. She notes that over the weekend she thought she developed food poisoning. She endorsed projectile vomiting and diarrhea. On Saturday she continued to feel poorly and was notified that her grandchild who lives with her tested positive for strep throat. She progressed to have a sore throat herself. Over night last night she began having significant issues with her breathing, noting that it felt like her lungs filled up with fluid. She notes fever, body aches, and continued loss of appetite. She has not taken any medication for her pain and has not done any breathing treatments. Related Data Home Medications Medication Instructions Recorded Confirmed ferrous sulfate 325 mg (65 mg 325 mg PO QAM 08/10/21 07/31/23 iron) tablet budesonide-formoterol HFA 160 2 puff inhalation Q12H PRN 12/15/21 07/31/23 mcg-4.5 mcg/actuation aerosol shortness of breath inhaler (Symbicort) brensocatib PO DAILY 07/31/23 07/31/23 tobramycin 300 mg/4 mL solution 300 mg inhalation Q12H 07/31/23 07/31/23 for nebulization Allergies Allergy/AdvReac Type Severity Reaction Status Date / Time hepatitis B virus vaccine Allergy Unknown Anxiety Verified 07/31/23 09:16 hydroxyzine Allergy Unknown Unknown Verified 07/31/23 09:16 Penicillins Allergy Unknown Unknown Verified 07/31/23 09:16 Review of Systems Review of Systems: All systems reviewed & are unremarkable except as noted in HPI and below PMFSH Past Medical History Medical History ADD (attention deficit disorder) Anxiety disorder, unspecified Bronchiectasis at age 22 Surgical History Surgical History History of back surgery Disc replacement surgery History of dilation and curettage History of myomectomy Hx of breast implants, bilateral Hx of tonsillectomy Family History Family History Grandparent Acute myocardial infarction Other Pancreas cancer Breast cancer Other Brain cancer Social History Social History Social History: Patient lives at home with her 2 daughters. Her of brain cancer. 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 She is independent in her daily activities. She designates her daughters, Mishel and Meg, as her surrogate decision maker. She is a full code. Smoking status: Former smoker Alcohol intake: current Alcohol use details: 1-2 drinks/month Substance use type: marijuana Other substance usage details: Marijuana gummy once/week Lack of Transportation: No Lack of Food: Never True Current Housing: I Have Housing Concerned About Future Housing: No Difficulty Paying Gas/Electric Bills: No Difficulty Paying for Meds: No Currently Unemployed: No Education: Bachelor's Degree Difficulty w/ Childcare or Family Care: No Living arrangements: with family Occupation/Education: occupation Gender identity (if verbalized by the patient): Female Sexual Orientation (if Verbalized by the Patient): Straight or Heterosexual Spiritual care concerns: No Exam Narrative: GENERAL: Well-appearing, well-nourished, and in no acute distress. HEAD: Normocephalic, atraumatic. EYES: PERRLA and EOMI. ENT: Nares clear. Mucous membranes moist. No pharyngeal eryth
[2023-09-18] MEDS: IPRATROPIUM 0.5 MG/ALBUTEROL SULFATE 2.5 MG AMPUL.NEB 3 ML INHALATION (14:30)
[2023-09-18 14:54] LABS: Basophils Percent Auto 0.2 % (0.2-1.2); Eosinophils Percent Auto 0.2 % (0-4.4); Hematocrit 44.3 % (37.0-47.0); Immature Granulocyte Absolute 0.06 K/mm3 (0.00-0.031); Immature Granulocyte Percent A 0.5 % (0-0.5); Lymphocytes Absolute Auto 0.84 K/mm3 (0.9-3.2); Lymphocytes Percent Auto 6.6 % (18.3-44.2); Mean Corpuscular HGB Conc 33.9 g/dl (32-36); Mean Corpuscular Volume 91.5 fl (80-100); Mean Platelet Volume 9.7 fl (7.4-10.4); Monocytes Absolute Auto 0.8 K/mm3 (0.1-0.6); Monocytes Percent Auto 6.3 % (2.6-8.5); Neutrophils Percent Auto 86.2 % (45.5-73.1); Platelet Count Result 175 k/mm3 (150-375); Red Blood Count 4.84 M/mm3 (4.2-5.4); Red Cell Distribution Width 13.4 % (11.5-14.5); White Blood Count 12.8 K/mm3 (4.5-10.0)
[2023-09-18] MEDS: ACETAMINOPHEN 500 MG TABLET 1000 MG PO (14:57)
[2023-09-18 15:06] LABS: Lactic Acid Reflex 1.5 mmol/L (0.7-2.0)
[2023-09-18 15:06] LABS: Partial Thromboplastin Time 28.2 Seconds (22.3-36.8)
[2023-09-18 15:07] LABS: Alanine Aminotransferase 20 U/L (6-35); Albumin Level 4.4 g/dL (3.5-5.1); Alkaline Phosphatase 60 U/L (38-126); Anion Gap 7 mmol/L (4-12); Aspartate Amino Transferase 22 U/L (14-36); Bilirubin,Total 1.5 mg/dL (0.2-1.3); Blood Urea Nitrogen 14 mg/dL (7-17); CRP 6.1 mg/dL (<1.0); Calcium 9.1 mg/dL (8.4-10.2); Carbon Dioxide 25 mmol/L (22-30); Chloride 104 mmol/L (98-107); Estimated CRCL calculation 64 ml/min; Estimated Glomerular Filt Rate > 60; Glucose 117 mg/dL (65-110); Potassium 3.7 mmol/L (3.4-5.0); Sodium 136 mmol/L (137-145)
[2023-09-18 15:13] LABS: NT Pro B Type Natriuretic Pept 92 pg/mL (19.9-100)
[2023-09-18 15:17] LABS: Troponin I < 0.012 ng/mL (0.000-0.034)
[2023-09-18 15:22] LABS: Strep Group A RT-PCR NOT DETECTED (Negative)
[2023-09-18 15:31] LABS: Appearance Urine Clear (Clear); Bacteria Urine 1+ /hpf; Bilirubin Urine Negative (Negative); Blood Urine Non-Hemolyzed Trace (Negative); Color Urine Dark Yellow (Yellow); Glucose Urine UA Negative (Negative); Ketones Urine Trace mg/dL (Negative); Leukocyte Esterase Ur Negative LEU/UL (Negative); Nitrate Urine Negative (Negative); Non Pathogenic Casts 0-2; Protein Urine Trace mg/dL (Negative); Specific Grav Ur 1.027 (1.001-1.035); Squamous Epithelial Cell Urine Moderate /hpf (Few); WBC Urine 0-5 /hpf (0-3); pH Urine 6.5 (5.0-9.0)
[2023-09-18 15:34] LABS: Influenza A QL RT-PCR Negative (Negative); Influenza B QL RT-PCR Negative (Negative); RSV RNA, RT-PCR Negative (Negative); SARS-CoV-2 RNA PCR Negative (Negative)
[2023-09-18 15:44] LABS: Add Urine Microscopic? YES
--- NOTE | 2023-09-18 16:43 | PC.NURSE ---
Pt has received 1,900 mL of Lactated Ringer's per 30mL/kg bolus order.
[2023-09-18] MEDS: levoFLOXacin 750 MG TABLET PO (17:38)
[2023-09-18] MEDS: predniSONE 20 MG TABLET 40 MG PO (17:39)
== END 2023-09-18 17:43 | disposition home or self-care (01) ==
PROVIDERS: Emergency Provider Student in an Organized Health Care Education/Training Program; PCP Emergency Medicine
DX: B34.9 Viral infection, unspecified (principal); J47.1 Bronchiectasis with (acute) exacerbation; Z20.822 Contact with and (suspected) exposure to COVID-19; F98.8 Other specified behavioral and emotional disorders with onset usually occurring in childhood and adolescence; Z87.891 Personal history of nicotine dependence; Z79.899 Other long term (current) drug therapy; R00.0 Tachycardia, unspecified; R94.31 Abnormal electrocardiogram [ECG] [EKG]
CPT/HCPCS: 36415; 71046; 80053; 81001; 83605; 83880; 84484; 85025; 85610; 85730; 86140; 87040; 87637; 87651; 93005; 94640; 99284; A9270; J7120; J7512

== ENCOUNTER 2024-04-30 11:48 | Outpatient (NON) | payer OTHER, SELFPAY ==
--- OUTSIDE RECORDS SUMMARY | 2024-04-30 12:42 | XMS_ITS | Referral Summary ---
Author Organization [facility] Address [address] [place] [address] Care Team Providers Care Associate Director Career Services Name Role Phone Unavailable Primary Care Provider Unavailabl e Source Comments [facility],non-owned Affiliates and Associated Physician Practices is amultiple site organization consisting of ambulatory clinics and hospital sitesin [place], [place], [place] and [place]. This disclosure is being madepursuant to the Care Everywhere program and may not contain all information available regarding this patient. Last updated 17.[facility] [employer] Social History Tobacco Use Types Packs/Day Years Used Date Smoking Tobacco: Never Assessed Sex and Gender Information Value Date Recorded Sex Assigned at Not on file Gender Identity Not on file Sexual Orientation Not on file Plan of Treatment Not on file
--- OUTSIDE RECORDS SUMMARY | 2024-04-30 12:42 | XMS_ITS | Patient Health Summary ---
Author Organization [facility] Address [address] [place] [address] Care Team Providers Care Washer Engineer Name Role Phone Unavailable Primary Care Provider Unavailabl e Note from [facility],non-owned Affiliates and Associated Physician Practices is amultiple site organization consisting of ambulatory clinics and hospital sitesin [place], [place], [place] and [place]. This disclosure is being madepursuant to the Care Everywhere program and may not contain all information available regarding this patient. Last updated 17.[facility] Social History Tobacco Use Types Packs/Day Years Used Date Smoking Tobacco: Never Assessed Sex and Gender Information Value Date Recorded Sex Assigned at Not on file Gender Identity Not on file Sexual Orientation Not on file
--- OUTSIDE RECORDS SUMMARY | 2024-04-30 12:42 | XMS_ITS | Clinical Summary ---
Author Organization [facility] [email or web address] Address [address] [place] [address] Care Team Providers Care Information Technology Director Name Role Phone Unavailable Primary Care Provider Unavailabl e Source Comments [email or web address],non-owned Affiliates and Associated Physician Practices is amultiple site organization consisting of ambulatory clinics and hospital sitesin [place], [place], [place] and [place]. This disclosure is being madepursuant to the Care Everywhere program and may not contain all information available regarding this patient. Last updated 17.[facility] [email or web address] Social History Tobacco Use Types Packs/Day Years Used Date Smoking Tobacco: Never Assessed Sex and Gender Information Value Date Recorded Sex Assigned at Not on file Gender Identity Not on file Sexual Orientation Not on file Plan of Treatment Health Maintenance Due Date Last Done Comments COLOGUARD (AGES 45-75) - COL ON CA SCREENING 1967 COLON MONITORING 1967 COLONOSCOPY - COLON CA SCREENING 1967 CT COLONOGRAPHY - COLON CA SCREENING 1967 Colorectal Cancer Screening 1967 FIT - COLON CA SCREENING 1967 FLEX SIG - COLON CA SCREENING 1967 LIPID TESTING 1967 MAMMOGRAM 1967 PAP SMEAR 1967 HIV SCREENING 07/16/1982 HEPATITIS C SCREENING 07/12/1985 DTAP/TDAP/TD VACCINES (1 - Tdap) 07/16/1986 HEPATITIS B VACCINE (1 of 3 - 19+ 3-dose series) 07/16/1986 PNEUMOCOCCAL VACCINE 50+ (1 of 1 - PCV) 07/16/2017 ZOSTER VACCINE (1 of 2) 07/16/2017 COVID-19 VACCINE ( - 2023-2 5 season) 2023 INFLUENZA VACCINE (#1) 2023 DEPRESSION SCREENING 04/01/2024 HIB VACCINE Aged Out No longer eligi ble based on patient's age to complete this topic HPV VACCINE Aged Out No longer eligi ble based on patient's age to complete this topic MENINGOCOCCAL (Group B) VACCINE Aged Out No longer eligible based on patient's age to complete this topic MENINGOCOCCAL VACCINE Aged Out No gabrielle gabriella eligible based on patient's age to complete this topic PNEUMOCOCCAL VACCINE Aged Out No long er eligible based on patient's age to complete this topic
--- OUTSIDE RECORDS SUMMARY | 2024-04-30 12:42 | XMS_ITS | Clinical Summary ---
Author Organization [facility] Address [address] [place] [id number] Care Team Providers Care Electrical Installer Name Role Phone Unavailable Primary Care Provider Unavailabl e Social History Tobacco Use Types Packs/Day Years Used Date Smoking Tobacco: Never Assessed Comments Unknown Sex and Gender Information Value Date Recorded Sex Assigned at Not on file Legal Sex Female 12:26 PM CDT Gender Identity Not on file Sexual Orientation Not on file Plan of Treatment Health Maintenance Due Date Last Done Comments Hepatitis C Virus (HCV) Screening 1965 TdaP Immunization 1965 Hepatitis B Immunization (1 of 3 - 19+ 3-dose series) 07/16/1986 Pap Smear 07/16/1988 Cervical Cancer Screening (CCS) 07/16/1997 HPV/Cotest 07/16/1997 Colonoscopy 07/16/2012 Colorectal Cancer Screening 07/16/2012 Cologuard 07/16/2017 Immunochemical Fecal Occult Blood 07/16/2017 Mammogram 07/16/2017 Pneumococcal Immunization (5 0+ years) (1 of 1 - PCV) 07/16/2017 Zoster Immunization (1 of 2) 07/16/2017 Influenza Immunization (#1) 2023 SARS-COV-2 Immunization ( - season) 2023 Respiratory Syncytial Virus (RSV) Immunization (Adult) (1 - 1-dose 75+ series) 07/16/2042 Meningococcal Immunization (ACWY) Aged Out No longer eligible based on patient's age to complete this topic Pneumococcal Immunization Combined Aged Out No longer eligible based on patient's age to complete this topic Rotavirus Immunization Aged Out No lo nger eligible based on patient's age to complete this topic
[2024-05-01 22:52] LABS: Amphetamines POSITIVE ng/mL (<500); Barbiturates NEGATIVE ng/mL (<300); Benzodiazepines NEGATIVE ng/mL (<100); Cocaine Metabolite NEGATIVE ng/mL (<150); Marijuana Metabolite POSITIVE ng/mL (<20); Methadone Metabolite NEGATIVE ng/mL (<100); Opiates NEGATIVE ng/mL (<100); Oxidant NEGATIVE mcg/mL (<200); PCP NEGATIVE ng/mL (<25); pH 7.2 (4.5-9.0)
== END 2024-04-30 11:49 | disposition home or self-care (01) ==
LOC: ANHGOSHLAB 11:49
PROVIDERS: PCP Family Medicine; Visit Provider Family Medicine
DX: F90.9 Attention-deficit hyperactivity disorder, unspecified type (principal); Z02.83 Encounter for blood-alcohol and blood-drug test; Z79.899 Other long term (current) drug therapy
CPT/HCPCS: 80307

== ENCOUNTER 2024-05-15 09:38 | Outpatient (CLI) | payer OTHER, MEDICAID, SELFPAY ==
--- OUTSIDE RECORDS SUMMARY | 2024-05-15 09:56 | XMS_ITS | Patient Health Summary ---
Author Organization [facility] Address [address] [place] [address] Care Team Providers Care Security Systems Installer Name Role Phone Unavailable Primary Care Provider Unavailabl e Note from [facility],non-owned Affiliates and Associated Physician Practices is amultiple site organization consisting of ambulatory clinics and hospital sitesin [place], [place], [place] and [place]. This disclosure is being madepursuant to the Care Everywhere program and may not contain all information available regarding this patient. Last updated 17.[facility] Maintenance Assistant Social History Tobacco Use Types Packs/Day Years Used Date Smoking Tobacco: Never Assessed Sex and Gender Information Value Date Recorded Sex Assigned at Not on file Gender Identity Not on file Sexual Orientation Not on file
--- OUTSIDE RECORDS SUMMARY | 2024-05-15 09:56 | XMS_ITS | Clinical Summary ---
Author Organization [facility] Address [address] [place] [address] Care Team Providers Care Child Care Attendant Name Role Phone Unavailable Primary Care Provider Unavailabl e Source Comments [facility],non-owned Affiliates and Associated Physician Practices is amultiple site organization consisting of ambulatory clinics and hospital sitesin [place], [place], [place] and [place]. This disclosure is being madepursuant to the Care Everywhere program and may not contain all information available regarding this patient. Last updated 17.[facility] Social History Tobacco Use Types Packs/Day Years [...]
--- OUTSIDE RECORDS SUMMARY | 2024-05-15 09:56 | XMS_ITS | Referral Summary ---
Author Organization [facility] Address [address] [place] [address] Care Team Providers Care Accounts Payable Or Receivable Clerk Name Role Phone Unavailable Primary Care Provider Unavailabl e Source Comments [facility],non-owned Affiliates and Associated Physician Practices is amultiple site organization consisting of ambulatory clinics and hospital sitesin [place], [place], [place] and [place]. This disclosure is being madepursuant to the Care Everywhere program and may not contain all information available regarding this patient. Last updated 17.[facility] [employer] Social History Tobacco Use Types Packs/Day Years Used Date Smoking Tobacco: Never Assessed Sex and Gender Information Value Date Recorded Sex Assigned at Not on file Gender Identity Not on file Sexual Orientation Not on file Plan of Treatment Not on file
--- OUTSIDE RECORDS SUMMARY | 2024-05-15 09:56 | XMS_ITS | Clinical Summary ---
Author Organization [facility] Address [address] [place] [id number] Care Team Providers Care Clothes Designer Name Role Phone Unavailable Primary Care Provider [...]
[2024-05-15 17:47] LABS: Hematocrit 47.5 % (37.0-47.0); Hemoglobin 15.1 g/dL (12.0-15.0); Mean Corpuscular HGB Conc 31.8 g/dl (32-36); Mean Corpuscular Hemoglobin 30.8 pg (26-34); Mean Corpuscular Volume 96.9 fl (80-100); Mean Platelet Volume 11.1 fl (7.4-10.4); Platelet Count Result 236 k/mm3 (150-375); Red Cell Distribution Width 13.7 % (11.5-14.5); White Blood Count 5.5 K/mm3 (4.5-10.0)
[2024-05-15 17:51] LABS: Alanine Aminotransferase 34 U/L (6-35); Alkaline Phosphatase 53 U/L (38-126); Anion Gap 7 mmol/L (4-12); Aspartate Amino Transferase 44 U/L (14-36); Bilirubin,Total 0.8 mg/dL (0.2-1.3); Blood Urea Nitrogen 14 mg/dL (7-17); Calcium 9.7 mg/dL (8.4-10.2); Carbon Dioxide 30 mmol/L (22-30); Chloride 105 mmol/L (98-107); Cholesterol 224 mg/dL (0-200); Estimated Glomerular Filt Rate > 60; Glucose 84 mg/dL (65-110); HDL Direct 85 mg/dL; Sodium 142 mmol/L (137-145); Triglycerides 64 mg/dL (<150)
[2024-05-15 17:58] LABS: Hemoglobin A1C 5.3 % (<5.7)
[2024-05-15 18:01] LABS: LDL Cholesterol Direct 106 mg/dL
== END 2024-05-15 09:39 | disposition home or self-care (01) ==
PROVIDERS: PCP Family Medicine; Visit Provider Family Medicine
DX: F41.9 Anxiety disorder, unspecified (principal); E78.5 Hyperlipidemia, unspecified; R73.09 Other abnormal glucose; Z79.899 Other long term (current) drug therapy; E04.1 Nontoxic single thyroid nodule
CPT/HCPCS: 36415; 80053; 80061; 83036; 84439; 84443; 85027

== ENCOUNTER 2024-12-10 10:05 | Outpatient (RCR) | payer OTHER, SELFPAY ==
--- OUTSIDE RECORDS SUMMARY | 2024-12-01 10:01 | XMS_ITS | Clinical Summary ---
Author Organization [facility] Address [address] [place] [address] Care Team Providers Care Braider Tender Name Role Phone Elena Elliott DO Primary Care Provider [phone] Allergies Active Allergy Reactions Criticality Noted Date Comments Hepatitis B Virus Vaccine Shortness of breath,Swollen tongue High 06/26/2022 Reaction: Tongue Swelling, Short of breath, Penicillins Itching,Other (See comments),Swelling Reaction: Itching, Burning Sensation, Swelling, Tobramycin Tinnitus Medium 08/04/2024 Medications dextroamphetamine -amphetamine XR (ADDERALL XR) 30 mg 24 hr capsule TAKE 1 CAPSULE BY MOUTH ONCE DAILY IN THE MORNING 06/15/19 23 Active traZODone (DESYREL) 50 mg tablet TAKE 1 TO 2 TABLETS BY MOUTH EVERY DAY AT BEDTIME NEEDED FOR SLEEP FOR INSOMNIA 06/17/19 23 Active estradiol-norethi ndrone (ACTIVELLA) 0.5-0.1 mg per tablet Take 1 tablet by mouth daily 06/07/19 23 Active benzonatate (TESSALON) 200 mg capsule 06/19/19 23 Active NebuSal 3 % nebulizer solution USE 4 ML IN NEBULIZER EVERY 12 HOURS NEEDED FOR SECRETIONS 05/18/19 23 Active aluminum & magnesium hydroxide-simethi cone-diphenhydram ine-lidocaine (MAGIC MOUTHWASH) suspension Swish and spit 10 mL every 4 (four) hours as needed (mouth pain) 180 mL 3 06/27/19 23 Active Additional Information Patient not taking.Reason: notneeded, Reported on 10/05/2024 dextromethorphan- guaifenesin 20-400 mg tablet Take by mouth Every other week Active umeclidinium-tonio nteroL (ANORO ELLIPTA) 62.5-25 mcg/actuation blister with deviceIndications :Bronchiectasis, uncomplicated (HCC),Moderate persistent asthma without complication Inhale 1 puff daily 60 each 5 02/29/20 Active Additional Information Patient not taking.Reason: never started, Reported on 10/05/2024 valACYclovir (VALTREX) 1 gram tablet Take 1 tablet (1,000 mg total) by mouth every 12 (twelve) hours 05/28/19 Active albuterol 2.5 mg /3 mL (0.083 %) nebulizer solution Take 3 mL (2.5 mg total) by nebulization every 6 (six) hours as needed for wheezing 150 mL 08/05/19 Active sodium chloride 3 % nebulizer solution Take 4 mL by nebulization 2 (two) times a day 240 mL 08/05/19 Active albuterol HFA (PROVENTIL HFA,VENTOLIN HFA,PROAIR HFA) 90 mcg/actuation inhaler Inhale 2 puffs every 6 (six) hours as needed for wheezing 1 each 10/02/19 Active levoFLOXacin (LEVAQUIN) 750 mg tablet Take 1 tablet (750 mg total) by mouth daily 10 tablet 11/18/19 25 Active predniSONE (DELTASONE) 20 mg tablet Take 2 tablets (40 mg) by mouth daily 10 tablet 11/18/19 25 Active Hospital, Clinic, or Other Facility Administered Medication Ordered Dose Route Frequency Start Date End Date Status [facility] brensocatib/placebo (/ASPEN) tablet 1 tabletIndications:Research exam 1 tablet oral Daily 05/11/2022 Active [facility] brensocatib/placebo (/ASPEN) tablet 1 tabletIndications:Research exam 1 tablet oral Daily 06/08/2022 Active [facility] brensocatib/placebo (/ASPEN) tablet 1 tabletIndications:Research study patient 1 tablet oral Daily 09/03/2022 Active [facility] brensocatib/placebo (/ASPEN) tablet 1 tabletIndications:Research study patient 1 tablet oral Daily 11/27/2022 Active [facility] brensocatib/placebo (/JOVANNI) tablet 1 tabletIndications:Research study patient 1 tablet oral Daily 02/26/2023 Active Active Problems Problem Noted Date Diagnosed Date Encounter for vaccination 08/05/2024 High risk medication use 06/19/2023 Acute sinusitis 03/08/2023 Bronchiectasis, uncomplicated 06/27/2022 Pseudomonas respiratory infection 06/27/2022 Chronic hepatitis C virus infection 03/06/2012 Constipation 06/07/2011 Nausea with vomiting 06/07/2011 Disorder of uterus 01/08/2011 Menorrhagia 01/08/2011 Encounters Date Type Department Care Team Description 11/17/2024 Telephone [facility] Medicine Pulmonary [address] Advanced Medicine 8th [place] [address] [place] [address] Rafael Aguirre, RN 10/05/2024 11:00 AM CDT Office Visit [facility] Medicine Pulmonary [address] [facility] [address] [facility] Medical Office [address] [place] [address] Jimi Ivey MD Bronchiectasis with (acute) exacerbation (HCC) (Primary Dx); High risk medication use 10/01/2024 Orders Only [facility] Medicine Pulmonary [address] Advanced Medicine [address]th [place] [address] [place] [address] Jimi Ivey MD 09/30/2024 Telephone [facility] Medicine Pulmonary [address] Medicine 8th [place] [address] [place] [address] Rafael Aguirre, RN from Last 3 Months Immunizations Immunization Administration Dates Next Due Pneumococcal Conjugate Pcv20 08/04/2024 Surgical History Surgery Date Site/Laterality Comments COLONOSCOPY Colonoscopy (Fiberoptic) - 05/2011 (Added by Conv) DILATION AND CURETTAGE OF UTERUS Dilation And Curettage - (Added by TW Conv) TOTAL DISC ARTHROPLASTY LUMBAR Total Disc Arthroplasty Lumbar - (Added by TW Conv) TOTAL DISC ARTHROPLASTY LUMBAR Total Disc Arthroplasty Lumbar - (Added by TW Conv) Medical History Medical History Date Comments History of recurrent pneumonia P neumonia - Multiple episodes - 1990, 1998,2002, 2005, 2008 (Added by TW Conv) Bronchiectasis without compl ication (HCC) Bronchiectasis - (Added by T W Conv) Family History Medical History Relation Name Comments Pleurisy Mother lung issues Mother Relation Name Status Comments Mother Social History Tobacco Use Types Packs/Day Years Used Date Smoking Tobacco: Former Smokeless Tobacco: Never Tobacco Cessation:Counseling Given: Not Answered Comments Unknown Sex and Gender Information Value Date Recorded Sex Assigned at Not on file Legal Sex Female 9:33 AM 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 ELECTRONICS TECHNICIAN Gender Identity Not on file Sexual Orientation Not on file Obstetrics History Last Filed Vital Signs Vital Sign Reading Time Taken Comments Blood Pressure 118/77 10/05/2024 11:17 AM CDT Pulse 76 10/05/2024 11:17 AM CDT Temperature 36.7 C (98 F) 10/05/2024 11:17 AM CDT Respiratory Rate 18 08/04/2024 2:51 PM CDT Oxygen Saturation 98% 10/05/2024 11:17 AM CDT Inhaled Oxygen Concentration - - Weight 64.4 kg (142 lb) 10/05/2024 11:17 AM CDT Height 167.6 cm (5' 6) 10/05/2024 11:17 AM CDT Body Mass Index 22.92 10/05/2024 11:17 AM CDT Plan of Treatment Health Maintenance Due Date Last Done Comments Breast Cancer Screening-Mammogram 1965 Cervical Cancer Screening 1967 Colon Cancer Screening-Colonoscopy 1967 Depression Screening 1967 DTaP/Tdap/Td Vaccine (1 - Tdap) 07/16/1978 Hepatitis B Screening 07/16/1985 Regular Well Visit/Exam 18-64 07/16/1985 Zoster Vaccine (1 of 2) 07/16/2017 Covid-19 Vaccine ( season) 12/01/202303/2022, 04/21/2021 Influenza Vaccine (#1) 2024 Hepatitis C Screening Completed 03/06/2012 , 03/06/2012, 03/06/2012 Pneumococcal vaccine <65 Completed 08/04/2024 Insurance [facility] Care Teams Braider Tender Relationship Specialty Start Date End Date Elena Elliott DO PCP - General Family Medicine 11/14/21
--- OUTSIDE RECORDS SUMMARY | 2024-12-01 10:01 | XMS_ITS | Clinical Summary ---
Author Organization [facility] Address [address] [place] [address] Care Team Providers Care Documentation Analyst Name Role Phone Unavailable Primary Care Provider Unavailabl e Source Comments [facility],non-owned Affiliates and Associated Physician Practices is amultiple site organization consisting of ambulatory clinics and hospital sitesin [place], [place], [place] and [place]. This disclosure is being madepursuant to the Care Everywhere program and may not contain all information available regarding this patient. Last updated 17.[facility] Social History Tobacco Use Types Packs/Day Years Used Date Smoking Tobacco: Never Assessed Comments Unknown Sex and Gender Information Value Date Recorded Sex Assigned at Not on file Legal Sex Female 10:04 AM CDT Gender Identity Not on file Sexual [...] SCREENING 1965 LIPID TESTING 1965 MAMMOGRAM 1965 HIV SCREENING 07/16/1982 HEPATITIS C SCREENING 07/12/1985 DTAP/TDAP/TD VACCINES (1 - Tdap) 07/16/1986 HEPATITIS B VACCINE (1 of 3 - 19+ 3-dose series) 07/16/1986 PNEUMOCOCCAL VACCINE 50+ (1 of 1 - PCV) 07/16/2017 ZOSTER VACCINE (1 of 2) 07/16/2017 COVID-19 VACCINE (1 - 2023-2 5 season) 2023 DEPRESSION SCREENING 04/01/2024 INFLUENZA VACCINE (#1) 2024 HIB VACCINE Aged Out No longer eligi ble based on patient's age to complete this topic HPV VACCINE Aged Out No longer eligi ble based on patient's age to complete this topic MENINGOCOCCAL (Group B) VACC INE SHARED DECISION-MAKING Aged Out No longer eligibl e based on patient's age to complete this topic MENINGOCOCCAL GROUPS A/C/Y/W VACCINE Aged Out No longer eligible b ased on patient's age to complete this topic
--- OUTSIDE RECORDS SUMMARY | 2024-12-01 10:01 | XMS_ITS | Clinical Summary ---
Author Organization [facility] Address [address] [place] [phone] Care Team Providers Care Bakery Deliverer Name Role Phone Unavailable Primary Care Provider [...] Cervical Cancer Screening (CCS) 07/16/1997 HPV/Cotest 07/16/1997 Cologuard 07/16/2012 Colonoscopy 07/16/2012 Colorectal Cancer Screening 07/16/2012 Immunochemical Fecal Occult Blood 07/16/2012 Pneumococcal Immunization (5 0+ years) (1 of 1 - PCV) 07/16/2017 Zoster Immunization (1 of 2) 07/16/2017 SARS-COV-2 Immunization ( - 2023- season) 2023 Influenza Immunization (#1) 2024 Respiratory Syncytial Virus (RSV) Immunization (Adult) (1 - 1-dose 75+ series) 07/16/2042 Human Papillomavirus (HPV) Immunization Aged Out No longer eligible b ased on patient's age to complete this topic Meningococcal Immunization (ACWY) Aged Out No longer eligible based on patient's age to complete this topic Rotavirus Immunization Aged Out No lo nger eligible based on patient's age to complete this topic
== END 2025-03-01 23:59 | disposition home or self-care (01) ==
LOC: ANHGOSHLAB 10:05
PROVIDERS: PCP Family Medicine
DX: J47.9 Bronchiectasis, uncomplicated (principal)
CPT/HCPCS: 87070; 87116; 87205; 87206

== ENCOUNTER 2024-12-17 10:34 | Emergency (ER) | payer OTHER, SELFPAY ==
[2024-12-17] VITALS (7 sets, daily range): BP systolic 94–126; BP diastolic 62–81; PULSE 72–106; RESP 16–18; TEMP 36.8–37.9; O2SAT 96–98
--- NOTE | ~2024-12-17 | XR_ITS ---
EXAMINATION: XR chest 1V portable COMPARISON: No comparisons available. HISTORY: SOB FINDINGS: Small basilar infiltrates. No pneumothorax. Heart is normal size. Mediastinal and hilar contours are within normal limits. Bony thorax no acute abnormality. Miscellaneous: None Impression: Early bilateral pneumonia Reviewed, dictated and finalized at location A. Impression: Early bilateral pneumonia
--- OUTSIDE RECORDS SUMMARY | 2024-12-17 11:11 | XMS_ITS | Clinical Summary ---
Author Organization [facility] Medical [facility] Address [address] [place] [address] Care Team Providers Care Airport Shuttle Driver Name Role Phone Elena Elliott DO Primary Care Provider [phone]- [phone] Allergies Active Allergy Reactions Criticality Noted Date [...] Route Frequency Start Date End Date Status [facility] brensocatib/placebo (/ASPEN) tablet 1 tabletIndications:Research exam 1 tablet oral Daily 05/11/2022 Active [facility] brensocatib/placebo (/ASPEN) tablet 1 tabletIndications:Research exam 1 tablet oral Daily 06/08/2022 Active [facility] brensocatib/placebo (/ASPEN) tablet 1 tabletIndications:Research study patient 1 tablet oral Daily 09/03/2022 Active INV[facility] brensocatib/placebo (/ASPEN) tablet 1 tabletIndications:Research study patient 1 tablet oral Daily 11/27/2022 Active INV[facility] brensocatib/placebo (/JOVANNI) tablet 1 tabletIndications:Research study patient [...] Type Department Care Team Description 11/17/2024 Telephone [facility] Medicine Pulmonary [address] Advanced Medicine [address]th [place] [address] [place] [address] Rafael Aguirre, RN 10/05/2024 11:00 AM CDT Office Visit [facility] Medicine Pulmonary [address] Medical Office [address] [place] [address] Jimi Ivey MD Bronchiectasis with (acute) exacerbation (HCC) (Primary Dx); High risk medication use 10/01/2024 Orders Only [facility] Medicine Pulmonary [address] [facility] Advanced Medicine [address]th [place] [address] [place] [address] Jimi Ivey MD 09/30/2024 Telephone [facility] Medicine Pulmonary [address] [facility] Medicine 8th [place] [address] [place] [address] Rafael Aguirre, RN from Last 3 Months [...] on file Legal Sex Female 9:33 AM ROTARY FURNACE TENDER Gender Identity Not on file Sexual Orientation [...] Vaccine (1 of 2) 07/16/2017 Covid-19 Vaccine (3 - season) 11/30/202403/2022, 04/21/2021 Influenza Vaccine (#1) 2024 Hepatitis C Screening Completed 03/06/2012 , 03/06/2012, 03/06/2012 Pneumococcal vaccine <65 Completed 08/04/2024 Insurance [facility] Care Teams Airport Shuttle Driver Relationship Specialty Start Date End Date Elena Elliott DO PCP - General Family Medicine 11/14/21
--- OUTSIDE RECORDS SUMMARY | 2024-12-17 11:11 | XMS_ITS | Clinical Summary ---
Author Organization [facility] Address [address] [place] [phone] Care Team Providers Care Document Coordinator Name Role Phone Unavailable Primary Care Provider [...] (1 of 2) 07/16/2017 Influenza Immunization (#1) 2024 SARS-COV-2 Immunization ( season) 2024 Respiratory Syncytial Virus (RSV) Immunization (Adult) [...]
--- OUTSIDE RECORDS SUMMARY | 2024-12-17 11:11 | XMS_ITS | Clinical Summary ---
Author Organization [facility] [employer] Address [address] [place] [address] Care Team Providers Care Sewing Department Supervisor Name Role Phone Unavailable Primary Care Provider Unavailabl e Source Comments [facility] [employer],non-owned Affiliates and Associated Physician Practices is amultiple site organization consisting of ambulatory clinics and hospital sitesin [place], [place], [place] and [place]. This disclosure is being madepursuant to the Care Everywhere program and may not contain all information available regarding this patient. Last updated 17.[facility] [employer] [facility] Social History Tobacco Use Types Packs/Day Years [...] 07/16/2017 ZOSTER VACCINE (1 of 2) 07/16/2017 DEPRESSION SCREENING 04/01/2024 COVID-19 VACCINE (1 - 2023-2 5 season) 2024 INFLUENZA VACCINE (#1) 2024 HIB VACCINE Aged [...]
--- NOTE | 2024-12-17 11:38 | ED_ITS ---
HPI - General Adult General Chief complaint: Upper Respiratory Infection Stated complaint: URI Time Seen by Provider: 12/17/24 10:55 History of Present Illness HPI narrative: A 59-year-old female with history bronchiectasis and Pseudomonas presents emergency department for evaluation for worsening cough and congestion. Patient reports symptoms started a few days ago have been worsening steadily. Patient states that she does follow-up with [facility] with Dr. Ivey. Patient has previously been on IV cefepime for her Pseudomonas. Patient had a recent illness in September for which she was started on doxycycline but did not respond well to this and then ultimately she was started on Levaquin and steroids and patient did respond well to this. Patient states she did attempt to trying get a hold of Dr Ivey yesterday but she did not hear back. Patient presents emergency department complaining of cough congestion and shortness of breath. Related Data Home Medications ?Medication ?Instructions ?Recorded ?Confirmed ?Last Taken ?Type ferrous sulfate 325 mg (65 mg 325 mg PO QAM 08/10/21 0 12/17/24 12/14/21 History iron) tablet brensocatib PO DAILY 07/31/23 09/28/24 0 12/17/24 History valacyclovir 1 gram tablet 1,000 mg PO Q12H PRN herpes flare 09/28/24 12/17/24 Unknown History (Valtrex) Allergies Allergy/AdvReac Type Severity Reaction Status Date / Time hepatitis B virus vaccine Allergy Unknown Anxiety Verified 12/17/24 10:39 Penicillins Allergy Unknown Unknown Verified 12/17/24 10:39 Review of Systems 2 Review of Systems: All systems reviewed & are unremarkable except as noted in HPI and below PMFSH Past Medical History Medical History Bronchiectasis at age 22 Anxiety disorder, unspecified ADD (attention deficit disorder) Surgical History Surgical History Hx of breast implants, bilateral History of back surgery Disc replacement surgery Hx of tonsillectomy History of dilation and curettage History of myomectomy Family History Family History Grandparent Acute myocardial infarction Other Pancreas cancer Breast cancer Other Brain cancer Social History Social History (Updated 11/03/24 @ 16:08 by JASON Mairnelli Social History: Patient lives at home with her 2 daughters. Her of brain cancer. 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 She is independent in her daily activities. She designates her daughters, Anatoly, as her surrogate decision maker. She is a full code. Smoking status: Former smoker Alcohol intake: current Alcohol use details: 1-2 drinks/month Substance use: current Substance use type: marijuana Other substance usage details: Marijuana gummy once/week Do You Feel Safe in your Home?: Yes Lack of Transportation: No Lack of Food: Never True Current Housing: I Have Housing Concerned About Future Housing: No Difficulty Paying Gas/Electric Bills: No Difficulty Paying for Meds: No Currently Unemployed: No Education: Bachelor's Degree Difficulty w/ Childcare or Family Care: No Living arrangements: with family Additional living arrangements comments: Occupation/Education: occupation Gender identity (if verbalized by the patient): Female Sexual Orientation (if Verbalized by the Patient): Straight or Heterosexual Spiritual care concerns: No Exam 2 Narrative: APPEARANCE: Well appearing, no pain, no distress, well-nourished. HEAD: normocephalic, atraumatic. EYES: PERRLA/EOMI, conjunctivae clear. NOSE: Normal no drainage EARS:TMS clear with good light reflex. THROAT: Pharynx clear, no exudate. NECK: Supple. No adenopathy, no masses. RESPIRATORY: Productive cough CARDIOVASCULAR: Regular rate and rhythm without murmurs rubs or gallops. ABDOMINAL: Soft, nontender, nondistended, normal bowel sounds MUSCULOSKELETAL: Moves all extremities. Strength/ROM intact, No edema, No calf tenderness. NEURO: Alert. Cranial nerves II through XII intact. Good gait. Good coordination SKIN: Warm, dry. Normal Color Course Vital Signs Vital signs: Vital Signs Temperature 100.2 F H 12/17/24 10:42 Pulse Rate 105 H 12/17/24 10:42 Respiratory Rate 16 12/17/24 10:42 Blood Pressure 126/81 12/17/24 10:42 Pulse Oximetry 96 12/17/24 10:42 Temperature 98.3 F 12/17/24 13:11 Pulse Rate 72 12/17/24 14:53 Respiratory Rate 16 12/17/24 14:53 Blood Pressure 97/74 L 12/17/24 14:53 Pulse Oximetry 98 12/17/24 13:11 Oxygen Delivery Room Air 12/17/24 12:17 Medical Decision Making [facility] Narrative Medical decision making narrative: 59-year-old female presents emergency department for evaluation for cough congestion some ongoing for the last 3 days. Patient does have a history of bronchiectasis. Patient is currently afebrile but does have a leukocytosis of 11.5 hemoglobin 14.7. Patient has no acute abnormalities on her CMP patient was negative for influenza RSV and for COVID. Chest x-ray was concerning for pneumonia. Patient's fever was improved with Tylenol. Patient is improved on re-evaluation. Patient was started on Levaquin and prednisone and encouraged close follow-up with her audio video repairer. I did attempt to contact her audio video repairer but there was no call back. Patient was updated results of workup patient was comfortable plan for discharge and close follow-up. Patient was also educated on reasons to return to the emergency department. Differential Diagnosis Differential Diagnosis: COVID, RSV influenza, pneumonia Vital Signs Vital Signs: Vital Signs Temperature 100.2 F H 12/17/24 10:42 Pulse Rate 105 H 12/17/24 10:42 Respiratory Rate 16 12/17/24 10:42 Blood Pressure 126/81 12/17/24 10:42 Pulse Oximetry 96 12/17/24 10:42 Temperature 98.3 F 12/17/24 13:11 Pulse Rate 72 12/17/24 14:53 Respiratory Rate 16 12/17/24 14:53 Blood Pressure 97/74 L 12/17/24 14:53 Pulse Oximetry 98 12/17/24 13:11 Oxygen Delivery Room Air 12/17/24 12:17 Lab Data Lab results reviewed: Yes I reviewed the patient's lab results. 12/17/24 12:37 12/17/24 12:37 Labs: Lab Results 12/17/24 12/17/24 Range/Units 11:06 12:37 WBC 11.5 H (4.5-10.0) K/mm3 RBC 4.88 (4.2-5.4) M/mm3 Hgb 14.7 (12.0-15.0) g/dL Hct 46.0 (37.0-47.0) % MCV 94.3 (80-100) fl MCH 30.1 (26-34) pg MCHC 32.0 (32-36) g/dl RDW 13.7 (11.5-14.5) % Plt Count 224 (150-375) k/mm3 MPV 9.5 (7.4-10.4) fl Immature Gran % (Auto) 0.4 (0-0.5) % Neut % (Auto) 81.6 H (45.5-73.1) % Lymph % (Auto) 11.5 L (18.3-44.2) % [place] % (Auto) 5.6 (2.6-8.5) % Eos % (Auto) 0.6 (0-4.4) % Baso % (Auto) 0.3 (0.2-1.2) % Lymph # (Auto) 1.33 (0.9-3.2) K/mm3 [place] # (Auto) 0.6 (0.1-0.6) K/mm3 Eos # (Auto) 0.1 (0-0.3) K/mm3 Baso # (Auto) 0.0 (0.0-0.1) K/mm3 Abs Immat Gran (auto) 0.05 H (0.00-0.031) K/mm3 Absolute Neuts (auto) 9.4 H (1.3-6.7) K/mm3 Absolute Nucleated RBC 0.000 (0.0-0.012) K/mm3 Nucleated RBC % 0.0 (0.0-0.2) % Sodium 136 L (137-145) mmol/L Potassium 3.7 (3.4-5.0) mmol/L Chloride 101 (98-107) mmol/L Carbon Dioxide 30 (22-30) mmol/L Anion Gap 5 (4-12) mmol/L BUN 13 (7-17) mg/dL Creatinine 0.96 (0.7-1.0) mg/dL Estim Creat Clear Calc 53 ml/min Estimated GFR 60 (59 - ) Glucose 94 (65-110) mg/dL Calcium 9.3 (8.4-10.2) mg/dL Total Bilirubin 1.4 H (0.2-1.3) mg/dL AST 25 (14-36) U/L ALT 20 (6-35) U/L Alkaline Phosphatase 68 (38-126) U/L Total Protein 7.8 (6.3-8.2) g/dL Albumin 4.2 (3.5-5.1) g/dL Influenza A (RT-PCR) Negative (Negative) Influenza B (RT-PCR) Negative (Negative) RSV (RT-PCR) Negative (Negative) SARS-CoV-2 RNA (RT-PCR) Negative (Negative) Imaging Data Radiologist's impression: Impressions Chest X-Ray 12/17/24 13:24 Impression: Early bilateral pneumonia Discharge Plan Discharge Clinical Impression: Pneumonia Patient Disposition: Home Condition: Stable Instructions: Antibiotic Form Additional Instructions: Levaquin as directed until completed. Prednisone as directed until completed. Continue have close follow-up with pulmonology. If you have any worsening symptoms please call or return to the emergency department. Patient Language: Nepali Prescriptions: New levofloxacin 750 mg tablet 750 mg PO DAILY 7 Days Qty: 7 0RF prednisone 50 mg tablet 50 mg PO DAILY 5 Days Qty: 5 0RF prednisone 50 mg tablet 50 mg PO DAILY 5 Days Qty: 5 0RF No Action sodium chloride 3 % solution for nebulization 4 ml inhalation Q12H PRN (Reason: secretions) Qty: 120 0RF Rx Instructions: Hypertonic saline 3% for nebulizer use. Use bid prn. brensocatib 10 mg PO DAILY estradiol-norethindrone acet [Activella] 1-0.5 mg tablet 1 tablet PO DAILY Qty: 84 3RF valacyclovir [Valtrex] 1 gram tablet 1,000 mg PO Q12H PRN (Reason: herpes flare) ferrous sulfate 325 mg (65 mg iron) Tablet 325 mg PO QAM albuterol sulfate [Ventolin HFA] 90 mcg/actuation HFA aerosol inhaler 2 puff inhalation Q4H PRN (Reason: shortness of breath or wheezing) Qty: 1 4RF albuterol sulfate 2.5 mg /3 mL (0.083 %) solution for nebulization 2.5 mg inhalation Q4-6H PRN (Reason: shortness of breath or wheezing) Qty: 90 2RF benzonatate 200 mg capsule 200 mg PO TID PRN (Reason: cough) Qty: 30 1RF trazodone 50 mg tablet 100 mg PO HS PRN (Reason: Insomnia) Qty: 180 1RF Rx Instructions: TAKE 1 TO 2 TABLETS BY MOUTH EVERY DAY AT BEDTIME NEEDED FOR INSOMNIA FOR SLEEP dextroamphetamine-amphetamine [Adderall XR] 30 mg capsule,extended release 24hr 30 mg PO QAM Qty: 30 0RF Follow-up/Referrals: Elena Elliott DO [Primary Care Provider, Family Practice]
--- OUTSIDE RECORDS SUMMARY | 2024-12-17 11:39 | XMS_ITS | Clinical Summary ---
Author Organization [facility] Address [address] [place] [address] Care Team Providers Care Microfilm Camera Operator Name Role Phone Unavailable Primary Care Provider Unavailabl e Source Comments [facility],non-owned Affiliates and Associated Physician Practices is amultiple site organization consisting of ambulatory clinics and hospital sitesin [place], [place], [place] and [place]. This disclosure is being madepursuant to the Care Everywhere program and may not contain all information available regarding this patient. Last updated 17.[facility] Social History Tobacco Use Types Packs/Day Years [...]
--- OUTSIDE RECORDS SUMMARY | 2024-12-17 11:39 | XMS_ITS | Clinical Summary ---
Author Organization [facility] Address [address] [place] [address] Care Team Providers Care News Assistant Name Role Phone Elena Elliott DO Primary Care Provider [phone]- [phone] Allergies Active Allergy Reactions Criticality Noted Date [...] Route Frequency Start Date End Date Status [facility] brensocatib/placebo (/ASPEN) tablet 1 tabletIndications:Research exam 1 tablet oral Daily 05/11/2022 Active [facility] brensocatib/placebo (/ASPEN) tablet 1 tabletIndications:Research exam 1 tablet oral Daily 06/08/2022 Active [facility] brensocatib/placebo (/ASPEN) tablet 1 tabletIndications:Research study patient 1 tablet oral Daily 09/03/2022 Active [facility] brensocatib/placebo (/ASPEN) tablet 1 tabletIndications:Research study patient 1 tablet oral Daily 11/27/2022 Active [facility] brensocatib/placebo (/JOVANNI) tablet 1 tabletIndications:Research study patient [...] Type Department Care Team Description 11/17/[address] [facility] Medicine Pulmonary [address] [facility] Advanced Medicine [address]th [place] [address] [place] [address] Rafael Aguirre, RN 10/05/2024 11:00 AM CDT Office Visit [facility] Medicine Pulmonary [address] [facility] Medical Office [address] [place] [address] Jimi Ivey MD Bronchiectasis with (acute) exacerbation (HCC) (Primary Dx); High risk medication use 10/01/[address] [facility] Medicine Pulmonary [address] [facility] [address] Medicine [address]th [place] [address] [place] [address] Jimi Ivey MD 09/30/[address] 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
--- OUTSIDE RECORDS SUMMARY | 2024-12-17 11:39 | XMS_ITS | Clinical Summary ---
Author Organization Address [address] [place] [address] Care Team Providers Care Barber Stylist Name Role Phone Unavailable Primary Care Provider [...]
[2024-12-17] MEDS: ALBUTEROL SULFATE NEB 2.5 MG/3 ML INH 5 MG INHALATION (11:48)
[2024-12-17 11:53] LABS: Influenza A QL RT-PCR Negative (Negative); Influenza B QL RT-PCR Negative (Negative); RSV RNA, RT-PCR Negative (Negative); SARS-CoV-2 RNA PCR Negative (Negative)
[2024-12-17 12:44] LABS: Hematocrit 46.0 % (37.0-47.0); Hemoglobin 14.7 g/dL (12.0-15.0); Immature Granulocyte Percent A 0.4 % (0-0.5); Lymphocytes Absolute Auto 1.33 K/mm3 (0.9-3.2); Mean Corpuscular HGB Conc 32.0 g/dl (32-36); Mean Corpuscular Hemoglobin 30.1 pg (26-34); Mean Corpuscular Volume 94.3 fl (80-100); Nucleated Red Blood Cells Absolute Auto 0.000 K/mm3 (0.0-0.012); Nucleated Red Blood Cells Perc 0.0 % (0.0-0.2); Platelet Count Result 224 k/mm3 (150-375); Red Blood Count 4.88 M/mm3 (4.2-5.4); White Blood Count 11.5 K/mm3 (4.5-10.0)
[2024-12-17 13:00] LABS: Alanine Aminotransferase 20 U/L (6-35); Albumin Level 4.2 g/dL (3.5-5.1); Alkaline Phosphatase 68 U/L (38-126); Anion Gap 5 mmol/L (4-12); Aspartate Amino Transferase 25 U/L (14-36); Bilirubin,Total 1.4 mg/dL (0.2-1.3); Blood Urea Nitrogen 13 mg/dL (7-17); Calcium 9.3 mg/dL (8.4-10.2); Carbon Dioxide 30 mmol/L (22-30); Chloride 101 mmol/L (98-107); Estimated CRCL calculation 53 ml/min; Estimated Glomerular Filt Rate 60; Glucose 94 mg/dL (65-110); Potassium 3.7 mmol/L (3.4-5.0); Sodium 136 mmol/L (137-145); Total Protein 7.8 g/dL (6.3-8.2)
[2024-12-17] MEDS: ACETAMINOPHEN 500 MG TABLET 1000 MG PO (13:10)
== END 2024-12-17 14:56 | disposition home or self-care (01) ==
PROVIDERS: Emergency Provider Emergency Medicine; PCP Family Medicine
DX: J18.9 Pneumonia, unspecified organism (principal); Z20.822 Contact with and (suspected) exposure to COVID-19; F98.8 Other specified behavioral and emotional disorders with onset usually occurring in childhood and adolescence; Z87.891 Personal history of nicotine dependence; Z79.890 Hormone replacement therapy
CPT/HCPCS: 36415; 71045; 80053; 85025; 87040; 87637; 94640; 96374; 99284; A9270; J2919

== ENCOUNTER 2024-12-28 08:48 | Outpatient (CLI) | payer OTHER, SELFPAY ==
[2024-12-28 09:08] VITALS: BMI 23.4
--- OUTSIDE RECORDS SUMMARY | 2024-12-28 09:08 | XMS_ITS | Encounter Summary ---
Author Organization [facility] Address [address] [place] [address] Phone Care Team Providers Care Pharmaceutical Analyst Name Role Phone Elena Elliott DO Primary Care Provider [phone]- [phone] Encounter Details Date Type Department Care Team (Latest Contact Info) Description 12/01/2024 Orders Only [facility] Scanning, Provider Social History Tobacco Use Types Packs/Day Years Used Date Smoking Tobacco: Former Smokeless Tobacco: Never Comments Unknown Sex and Gender Information Value Date Recorded Sex Assigned at Not on file 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
--- OUTSIDE RECORDS SUMMARY | 2024-12-28 09:08 | XMS_ITS | Clinical Summary ---
Author Organization [facility] [employer] Address [address] [place] [address] Care Team Providers Care Pc Network Technician Name Role Phone Unavailable Primary Care Provider Unavailabl e Source Comments [facility] [employer]),non-owned Affiliates and Associated Physician Practices is amultiple site organization consisting of ambulatory clinics and hospital sitesin [place], [place], [place] and [place]. This disclosure is being madepursuant to the Care Everywhere program and may not contain all information available regarding this patient. Last updated 17.[facility] [employer] Social History Tobacco Use Types Packs/Day Years [...]
--- OUTSIDE RECORDS SUMMARY | 2024-12-28 09:08 | XMS_ITS | Clinical Summary ---
Author Organization [facility] Address [address] [place] [address] Care Team Providers Care Vegetable Canner Name Role Phone Unavailable Primary Care Provider [...]
--- OUTSIDE RECORDS SUMMARY | 2024-12-28 09:08 | XMS_ITS | Clinical Summary ---
Author Organization [facility] Address [address] [place] [address] Care Team Providers Care Thermal Cutting Tracer Machine Operator Name Role Phone Elena Elliott DO Primary Care Provider +1- [phone] Allergies Active Allergy Reactions Criticality Noted Date [...] Route Frequency Start Date End Date Status [facility] brensocatib/placebo (/ASPEN) tablet 1 tabletIndications:Research exam 1 tablet oral Daily 05/11/2022 Active [facility] brensocatib/placebo (/ASPEN) tablet 1 tabletIndications:Research exam 1 tablet oral Daily 06/08/2022 Active [facility] brensocatib/placebo (/ASPEN) tablet 1 tabletIndications:Research study patient 1 tablet oral Daily 09/03/2022 Active [facility] brensocatib/placebo (/ASPEN) tablet 1 tabletIndications:Research study patient 1 tablet oral Daily 11/27/2022 Active [facility] brensocatib/placebo (/JOVANNI) tablet 1 tabletIndications:Research study patient [...] Encounters Date Type Department Care Team Description 12/25/2024 Telephone [facility] Medicine Pulmonary [address] [place] [address] [place] [address] Rafael Aguirre, TODD 12/24/2024 Telephone [facility] Pulmonary [address] [place] [address] [place] [address] Rafael Aguirre, TODD 12/24/2024 Orders Only [facility] Medicine Pulmonary [address] [place] [address] [place] [address] Jimi Ivey MD 12/17/2024 Documentation Critical Care Medicine Gama Ramesh MD 12/17/2024 Telephone [facility] Pulmonary [facility] [address] [place] [address] [place] [address] Rafael Aguirre, TODD 12/01/2024 Orders Only [facility] Scanning, Provider 11/17/2024 Telephone [facility] Medicine Pulmonary [facility] [address] [place] [address] [place] [address] Rafael gAuirre, TODD 10/05/2024 11:00 AM CDT Office Visit [facility] Medicine Pulmonary [address] [facility] Medical Office [address] [place] [address] Jimi Ivey MD Bronchiectasis with (acute) exacerbation (HCC) (Primary Dx); High risk medication use 10/01/2024 Orders Only [facility] Medicine Pulmonary [address] [facility] 8th [place] [address] [place] [address] Jimi Ivey MD 09/30/2024 Telephone [facility] Medicine Pulmonary [address] [facility] 8th [place] [address] [place] [address] Rafael Aguirre RN from Last 3 Months Immunizations Immunization Administration Dates Next Due Pneumococcal Conjugate Pcv20 08/04/2024 Surgical History Surgery Date Site/Laterality Comments COLONOSCOPY Colonoscopy (Fiberoptic) - 05/2011 (Added by Conv) DILATION AND CURETTAGE OF UTERUS Dilation And Curettage - (Added by TW Conv) TOTAL DISC ARTHROPLASTY LUMBAR Total Disc Arthroplasty Lumbar - (Added by Conv) TOTAL DISC ARTHROPLASTY LUMBAR Total Disc Arthroplasty Lumbar - (Added by Conv) Medical History Medical History Date Comments History of recurrent pneumonia P neumonia - Multiple episodes - 1990, 1998,2002, 2005, 2008 (Added by Conv) Bronchiectasis without compl ication (HCC) Bronchiectasis [...] on file 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
[2024-12-28 09:10] VITALS: BP 118/75; PULSE 85; RESP 14; TEMP 37.1; O2SAT 100
[2024-12-28 10:46] LABS: Hematocrit 39.8 % (37.0-47.0); Hemoglobin 12.7 g/dL (12.0-15.0); Immature Granulocyte Percent A 0.4 % (0-0.5); Lymphocytes Absolute Auto 1.73 K/mm3 (0.9-3.2); Mean Corpuscular HGB Conc 31.9 g/dl (32-36); Mean Corpuscular Hemoglobin 30.2 pg (26-34); Mean Corpuscular Volume 94.8 fl (80-100); Nucleated Red Blood Cells Absolute Auto 0.000 K/mm3 (0.0-0.012); Nucleated Red Blood Cells Perc 0.0 % (0.0-0.2); Platelet Count Result 211 k/mm3 (150-375); Red Blood Count 4.20 M/mm3 (4.2-5.4); White Blood Count 4.6 K/mm3 (4.5-10.0)
[2024-12-28 11:11] LABS: Alanine Aminotransferase 16 U/L (6-35); Albumin Level 3.1 g/dL (3.5-5.1); Alkaline Phosphatase 49 U/L (38-126); Anion Gap 2 mmol/L (4-12); Aspartate Amino Transferase 22 U/L (14-36); Bilirubin,Total 0.3 mg/dL (0.2-1.3); Blood Urea Nitrogen 15 mg/dL (7-17); Calcium 8.4 mg/dL (8.4-10.2); Carbon Dioxide 28 mmol/L (22-30); Chloride 108 mmol/L (98-107); Estimated CRCL calculation 66 ml/min; Estimated Glomerular Filt Rate > 60; Glucose 100 mg/dL (65-110); Potassium 3.9 mmol/L (3.4-5.0); Sodium 138 mmol/L (137-145); Total Protein 5.6 g/dL (6.3-8.2)
== END 2024-12-28 08:49 | disposition home or self-care (01) ==
PROVIDERS: PCP Family Medicine
DX: J47.1 Bronchiectasis with (acute) exacerbation (principal); J98.8 Other specified respiratory disorders; B96.5 Pseudomonas (aeruginosa) (mallei) (pseudomallei) as the cause of diseases classified elsewhere
CPT/HCPCS: 36415; 36569; 36591; 80053; 85025; 87070; 87205; C1751

== ENCOUNTER 2025-03-17 16:52 | Emergency (ER) | payer OTHER, SELFPAY ==
--- NOTE | ~2025-03-17 | XR_ITS ---
XR chest 2V HOSTORY: cough, pulmonary hx COMPARISON:[ None] FINDINGS: Frontal and lateral views of the chest were obtained. The lungs are clear. The heart size is normal in size. Pulmonary vasculature is unremarkable. Osseous structures are intact. IMPRESSION: No acute lung findings.] [ ] Reviewed, dictated and finalized at location S. [facility]
--- NOTE | ~2025-03-17 | CT_ITS ---
CTA chest PE protocol HISTORY:elevated dimer, tachy . COMPARISON: 12/15/2021 TECHNIQUE: Following the noncontrasted college scouting coordinator, axial images of the thorax were obtained following infusion of 100 cc of Isovue 370. Post-processing on an independent workstation was performed to reconstruct MIP images for evaluation of the thoracic vasculature. FINDINGS: There is no pulmonary embolism, aortic dissection, thoracic aneurysm or pericardial fluid. Tree-in-bud opacities are again noted predominantly in the lower lobes. There are bronchiectasis and bronchial wall thickening noted particularly in the lower lobes. No focal consolidation pleural effusions or pneumothorax. No pleural effusion or pneumothorax is noted. There is no axillary, mediastinal or hilar adenopathy. Limited evaluation of the upper abdomen demonstrates no gross abnormalities. Review of bone windows demonstrates no osteoblastic or lytic lesions. IMPRESSION: There is no pulmonary embolism, aortic dissection, pericardial fluid or thoracic aneurysm. Chronic tree-in-bud opacities predominantly in the lower lobes bilaterally has increased. There is worsening bronchiectasis and bronchial wall thickening in the lower lobes. All CT scans at this facility are performed using low dose modulation techniques as appropriate to perform exam including the following: automated exposure control; use of iterative reconstruction technique; adjustment of the mA and/or kV according to patient size (this includes techniques or standardized protocols for targeted exams where dose is matched to indication/reason for exam). Reviewed, dictated and finalized at location S. [facility]ILITY NURSE IMPRESSION: There is no pulmonary embolism, aortic dissection, pericardial fluid or thoraci c aneurysm. Chronic tree-in-bud opacities predominantly in the lower lobes bilaterally has increased. There is worsening bronchiectasis and bronchial wall thickening in the lower lo bes. All CT scans at this facility are performed using low dose modulation techniqu es as appropriate to perform exam including the following: automated exposure c ontrol; use of iterative reconstruction technique; adjustment of the mA and/or kV according to patient size (this includes techniques or standardized protocol s for targeted exams where dose is matched to indication/reason for exam).
[2025-03-17 17:14] VITALS: BP 104/68; PULSE 110; RESP 16; O2SAT 96
--- OUTSIDE RECORDS SUMMARY | 2025-03-17 18:26 | XMS_ITS | Clinical Summary ---
Author Organization [facility] [employer] Address [address] [place] [address] Care Team Providers Care Ticket Printer Name Role Phone Unavailable Primary Care Provider Unavailabl e Source Comments [facility] [employer],non-owned Affiliates and Associated Physician Practices is amultiple site organization consisting of ambulatory clinics and hospital sitesin [place], [place], [place] and [place]. This disclosure is being madepursuant to the Care Everywhere program and may not contain all information available regarding this patient. Last updated 17.[facility] [employer] Social History Tobacco Use Types Packs/Day Years [...] DEPRESSION SCREENING 04/01/2024 COVID-19 VACCINE (1 - 2024-2 6 season) 2024 INFLUENZA VACCINE (#1) 2024 HIB [...]
--- OUTSIDE RECORDS SUMMARY | 2025-03-17 18:26 | XMS_ITS | Encounter Summary ---
Author Organization [facility] Address [address] [place] [address] Phone Care Team Providers Care Oracle Obiee Developer Name Role Phone Elena Elliott DO Primary Care Provider +1- [phone] Bunny Liu [facility] Unavailable Unavailable Jimi Ivey MD Unavailable +1- [phone] Encounter Details Date Type Department Care Team (Latest Contact Info) Description 12/09/2024 Orders Only [facility] Scanning, Provider Social History Tobacco Use Types Packs/Day Years Used Date Smoking Tobacco: Former Smokeless Tobacco: Never Comments Unknown Sex and Gender Information Value Date Recorded Sex Assigned at Not on file 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 Gender Identity Not on file Sexual Orientation Not on file documented as of this encounter Plan of Treatment Not on file documented as of this encounter Procedures Procedure Name Priority Date/Time Associated Diagnosis Comments SCAN - LABS 12/09/2024 documented in this encounter Results * SCAN - LABS (12/09/2024) us Provider Scanning Final Result documented in this encounter Visit Diagnoses Not on filedocumented in this encounter Care Teams Oracle Obiee Developer Relationship Specialty Start Date End Date Elena Elliott DO PCP - General Family Medicine 11/14/21 Jimi Ivey MD [address] [place] [address] PCP - Home Infusion Attending Pulmonary Disease 01/06/25 Bunny Liu RPh Pharmacist Pharmacy 12/28/24 01/12/25 documented as of this encounter
--- OUTSIDE RECORDS SUMMARY | 2025-03-17 18:26 | XMS_ITS | Encounter Summary ---
Author Organization [facility] Healthcare Address [address] [place] [address] Care Team Providers Care Aviation Safety Inspector Name Role Phone Elena Elliott DO Primary Care Provider +1- [phone] Jimi Ivey MD Unavailable +1- [phone] Encounter Details Date Type Department Care Team (Late st Contact Info) Description 01/13/2025 Orders Only [facility] HH Scheduling [address] [place] [address] Jimi Ivey MD [address] [facility] [address] [place] [address] Social History Tobacco Use Types Packs/Day Years Used Date Smoking Tobacco: Former Smokeless Tobacco: Never Comments Unknown Sex and Gender Information Value Date Recorded Sex Assigned at Not on file 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 Gender Identity Not on file Sexual Orientation Not on file documented as of this encounter Plan of Treatment Not on file documented as of this encounter Procedures Procedure Name Priority Date/Time Associated Diagnosis Comments AMBULATORY INVESTIGATION REFERRAL TO [facility] HOME INFUSION Routine 01/13/2025 9:35 AM CDT documented in this encounter Results * Ambulatory Investigational Referral to [facility] Home Infusion (01/13/2025 9:35 AM CDT) us Jimi Ivey MD OUTPATIENT REFERRAL ORDERABLES Final Result documented in this encounter Visit Diagnoses Not on filedocumented in this encounter Care Teams Aviation Safety Inspector Relationship Specialty Start Date End Date Elena Elliott DO PCP - General Family Medicine 11/14/21 Jimi Ivey MD [address] [facility] [address] [place] [address] PCP - Home Infusion Attending Pulmonary Disease 01/06/25 documented as of this encounter
--- OUTSIDE RECORDS SUMMARY | 2025-03-17 18:26 | XMS_ITS | Encounter Summary ---
Author Organization [facility] Address [address] [place] [address] Phone Care Team Providers Care Comptroller Name Role Phone Elena Elliott DO Primary Care Provider +1- [phone] Bunny Liu [facility] Unavailable Unavailable Jimi Ivey MD Unavailable +1- [phone] Encounter Details Date Type Department Care Team (Latest Contact Info) Description 12/01/2024 Orders Only [facility] Scanning, Provider Social History Tobacco Use Types Packs/Day Years Used Date Smoking Tobacco: Former Smokeless Tobacco: Never Comments Unknown Sex and Gender Information Value Date Recorded Sex Assigned at Not on file 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 [address] [place] [address] PCP - Home Infusion Attending Pulmonary Disease 01/06/25 Bunny Liu [facility] Pharmacist Pharmacy 12/28/24 01/12/25 documented as of this encounter
--- OUTSIDE RECORDS SUMMARY | 2025-03-17 18:26 | XMS_ITS | Encounter Summary ---
Author Organization [facility] Address [address] [place] [address] Phone Care Team Providers Care Coat Fitter Name Role Phone Elena Elliott DO Primary Care Provider +1- [phone] Jimi Ivey MD Unavailable +1- [phone] Encounter Details Date Type Department Care Team (Late st Contact Info) Description 01/28/2025 Results Follow-Up [facility] Medicine Pulmonary [address] [facility] Advanced Medicine 8th [place] [address] [place] [id number] Jimi Ivey MD [address] [facility] [address] [place] [address] X-ray chest 2 views Social History Tobacco Use Types Packs/Day Years Used Date Smoking Tobacco: Former Smokeless Tobacco: Never Comments Unknown Sex and Gender Information Value Date Recorded Sex Assigned at Not on file 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
--- OUTSIDE RECORDS SUMMARY | 2025-03-17 18:26 | XMS_ITS | Clinical Summary ---
Author Organization [facility] Address [address] [place] [id number] Care Team Providers Care Machine Sander Name Role Phone Unavailable Primary Care Provider [...]
--- OUTSIDE RECORDS SUMMARY | 2025-03-17 18:27 | XMS_ITS | Clinical Summary ---
Author Organization [facility] Medical Office Building B Address [address] [place] [address] Care Team Providers Care Superintendent Communications Name Role Phone Elena Elliott Primary Care Provider [phone]- [phone] Jimi Ivey MD Unavailable +1- [phone] Allergies Active Allergy Reactions Criticality Noted Date [...] complication Inhale 1 puff daily 60 each 02/29/20 23 Active Additional Information Patient not taking.Reason: never started, Reported on 10/05/2024 valACYclovir (VALTREX) 1 gram tablet Take 1 tablet (1,000 mg total) by mouth every 12 (twelve) hours 05/28/19 25 Active albuterol 2.5 mg /3 mL (0.083 %) nebulizer solution Take 3 mL (2.5 mg total) by nebulization every 6 (six) hours as needed for wheezing 150 mL 08/05/19 25 Active sodium chloride 3 % nebulizer solution Take 4 mL by nebulization 2 (two) times a day 240 mL 08/05/19 25 Active albuterol HFA (PROVENTIL HFA,VENTOLIN HFA,PROAIR HFA) 90 mcg/actuation inhaler Inhale 2 puffs every 6 (six) hours as needed for wheezing 1 each 10/02/19 25 Active levoFLOXacin (LEVAQUIN) 750 mg tablet Take 1 tablet (750 mg total) by mouth daily 10 tablet 11/18/19 25 Active omega-3 fatty acids-fish oil 300-1,000 mg capsule Take 1 capsule (1 g total) by mouth daily Active predniSONE (DELTASONE) 10 mg tablet Take 4 tabs (40mg) daily for 3 days, then 3 tabs (30mg) daily for 3 days, 2 tabs (20mg) daily for 3 days, 1 tab (10 mg) daily for 3 days. 30 tablet 01/27/20 25 025 Hospital, Clinic, or Other Facility Administered Medication Ordered Dose Route Frequency Start Date End Date Status INVMERGED WITH [facility] brensocatib/placebo (/ASPEN) tablet 1 tabletIndications:Research exam 1 tablet oral Daily 05/11/2022 Active [facility] brensocatib/placebo (/ASPEN) tablet 1 tabletIndications:Research exam 1 tablet oral Daily 06/08/2022 Active [facility] brensocatib/placebo (/ASPEN) tablet 1 tabletIndications:Research study patient 1 tablet oral Daily 09/03/2022 Active [facility] brensocatib/placebo (/ASPEN) tablet 1 tabletIndications:Research study patient 1 tablet oral Daily 11/27/2022 Active [facility] brensocatib/placebo (/ASPEN) tablet 1 tabletIndications:Research study patient [...] Encounters Date Type Department Care Team Description 01/28/2025 Telephone [facility] [place] [address] [place] [phone] Dejuan Bajwa CPhT 01/28/2025 Results Follow-Up [facility] Medicine Pulmonary [address] [place] [address] Medicine [facility] [place] [address] [place] [phone] Jimi Ivey MD X-ray chest 2 views 01/27/2025 1:54 PM CDT - 01/27/2025 11:59 PM CDT Hospital Encounter [facility] [address] [place] [address] Bronchiectasis, uncomplicated (HCC) Discharge Disposition: Discharge to home or self care 01/27/2025 Orders Only [facility] Pul[facility] [address] [place] [address] Medicine [facility] [place] [address] [place] [phone] Rafael Aguirre, TODD Bronchiectasis, uncomplicated (HCC) (Primary Dx) 01/26/2025 Telephone [facility] Medicine Pulmonary [facility] Medicine [facility] [place] [address] [place] [address] Rafael Aguirre, RN 01/26/2025 Orders Only [facility] Pulmonary [address] [facility] 8th [place] [address] [place] [address] Rafael Aguirre, RN Bronchiectasis, uncomplicated (HCC) (Primary Dx) 01/26/2025 Orders Only [facility] Pul[facility] [address] [facility] 8th [place] [address] [place] [address] Jimi Ivey MD 01/26[facility] [address] [facility] 8th [place] [address] [place] [address] Rafael Aguirre, TODD 01/13/2025 Orders Only [facility] HH Scheduling [address] [place] [address] Jiim Ivey MD 01/12/2025 10:30 AM CDT Home Care Visit [facility] Home Infusion Therapy [address] [place] [address] Sayra Porter RN CO DISCHARGE VISIT 01/06/2025 Home Infusion [facility] Home Infusion Therapy [address] [place] [address] Bunny Liu RPh Bronchiectasis without acute exacerbation (HCC) (Primary Dx) 01/06/2025 Plan of Care Documentation [facility] Home Infusion Therapy [address] [place] [address] 01/04/2025 1:52 PM CDT - 01/04/2025 11:59 PM CDT Hospital Encounter [facility] [address] [place] [address] Discharge Disposition: Discharge to home or self care 01/04/2025 12:00 PM CDT Home Care Visit [facility] Home Infusion Therapy [address] [place] [address] Dinesh Hoff RN HI ROUTINE VISIT 01/04/2025 Telephone [facility] Pulmonary [address] [facility] 8th [place] [address] [place] [address] Rafael Aguirre, TODD 12/29/2024 11:00 AM CDT - 12/29/2024 11:59 PM CDT Hospital Encounter [facility] [address] [place] [address] Discharge Disposition: Discharge to home or self care 12/29/2024 10:30 AM CDT Home Care Visit [facility] Home Infusion Therapy [address] [place] [address] Dinesh Hoff RN CO INITIAL VISIT 12/29/2024 9:30 AM CDT Telemedicine [facility] Medicine Pulmonary [address] [place] [address] [place] [address] Jimi Ivey MD Pseudomonas respiratory infection (Primary Dx); Bronchiectasis, uncomplicated (HCC) 12/29/2024 Results [facility]Up [facility] [address] [place] [address] Jimi Ivey MD CBC with auto differential 12/28/2024 Orders Only [facility] Scanning, Provider 12/28/2024 Plan of Care Documentation [facility] Home Infusion Therapy [address] [place] [address] 12/28/2024 Home Infusion [facility] Home Infusion Therapy [address] [place] [address] Radha Gallego RPh Bronchiectasis without acute exacerbation (HCC) (Primary Dx); Bronchiectasis with acute exacerbation (HCC); Pseudomonas respiratory infection 12/28/2024 Telephone [facility] Home Infusion Therapy [address] [place] [address] Argenis Pizarro 12/28/2024 Telephone [facility] Medicine Pulmonary [address] [place] [address] [place] [address] Rafael Aguirre, TODD 12/28/2024 Home Infusion [facility] Home Infusion Therapy [address] [place] [address] Graciela Arreola 12/28/2024 Telephone [facility] Medicine Pulmonary [address] [place] [address] [place] [address] Rafael Aguirre, TODD 12/25/2024 Telephone [facility] [address] [place] [address] [place] [address] Rafael Aguirre, RN 12/24/2024 Telephone [facility] Medicine Pulmonary [address] [facility] 8th [place] [address] [place] [address] Rafael Aguirre, TODD 12/24/2024 Orders Only [facility] Medicine Pulmonary [address] [facility] 8th [place] [address] [place] [address] Jimi Ivey MD 12/17/2024 Documentation Critical Care Medicine Gama Ramesh MD 12/17/2024 Telephone [facility] [address] 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 Gender Identity Not on file Sexual Orientation Not on file Last Filed Vital Signs Vital Sign Reading Time Taken Comments Blood Pressure 100/60 01/12/2025 1:50 PM CDT Pulse 70 01/12/2025 1:50 PM CDT Temperature 36.1 C (97 F) 01/12/2025 1:50 PM CDT Respiratory Rate 16 01/12/2025 1:50 PM CDT Oxygen Saturation 99% 01/12/2025 1:50 PM CDT Inhaled Oxygen Concentration - - Weight 65.8 kg (145 lb) 01/12/2025 1:50 PM CDT Height 167.6 cm (5' 6) 12/29/2024 10:18 AM CDT Body Mass Index 23.4 12/29/2024 10:18 AM CDT Plan of Treatment Health Maintenance [...] Procedure Name Priority Date/Time Associated Diagnosis Comments XR CHEST PA LATERAL 2 VIEWS Schedule Routine, Read Routine (OP Routine) 01/27/2025 1:59 PM CDT Bronchiectasis, uncomplicated (HCC) AMBULATORY INVESTIGATION REFERRAL TO [facility] HOME INFUSION Routine 01/13/2025 9:35 AM CDT EGFR Routine 01/04/2025 10:50 AM CDT DIFFERENTIAL AUTO Routine 01/04/2025 10:50 AM CDT CBC WITH AUTO DIFFERENTIAL Routine 01/04/2025 10:50 AM CDT GLUCOSE, RANDOM (OUTREACH) Routine 01/04/2025 10:50 AM CDT COMPREHENSIVE METABOLIC PANEL WITHOUT GLUCOSE (OUTREACH) Routine 01/04/2025 10:50 AM CDT EGFR Routine 12/29/2024 11:00 AM CDT GLUCOSE, RANDOM (OUTREACH) Routine 12/29/2024 11:00 AM CDT COMPREHENSIVE METABOLIC PANEL WITHOUT GLUCOSE (OUTREACH) Routine 12/29/2024 11:00 AM CDT DIFFERENTIAL AUTO Routine 12/29/2024 11:00 AM CDT CBC WITH AUTO DIFFERENTIAL Routine 12/29/2024 11:00 AM CDT SCAN - LABS 12/28/2024 from Last 3 Months Results * X-ray chest 2 views (01/27/2025 1:59 PM CDT) Anatomical Region Laterality Modality Body, Chest N/A Computed Radiogr aphy 01/27/2025 2:09 PM CDT Impressions 01/27/2025 2:09 PM CDT No recent prior chest radiograph available for comparison. CT chest dated 12/15/2021 was reviewed. Hyperinflated lungs without consolidation. Lower lung predominant bronchiectasis in both lungs is better characterized by the prior CT. No pleural effusion or pneumothorax. Normal cardiomediastinal silhouette. Bilateral breast implants are present. Electronically signed by: Katie Dumont M.D. Narrative 01/27/2025 2:09 PM CDT EXAMINATION: 2 view chest radiograph Procedure Note Katie Dumont MD - 01/27/2025 EXAMINATION: 2 view chest radiograph IMPRESSION: No recent prior chest radiograph available for comparison. CT chest dated 12/15/2021 was reviewed. Hyperinflated lungs without consolidation. Lower lung predominant bronchiectasis in both lungs is better characterized by the prior CT. No pleural effusion or pneumothorax. Normal cardiomediastinal silhouette. Bilateral breast implants are present. Electronically signed by: Katie Dumont M.D. us Jimi Ivey MD IMG XR PROCEDURES Fi nal Result * Ambulatory Investigational Referral to [facility] Home Infusion (01/13/2025 9:35 AM CDT) us Jimi Ivey MD OUTPATIENT REFERRAL ORDERABLES Final Result * Glucose, random (Outreach) (01/04/2025 10:50 AM CDT) Glucose 87 70 - 199 mg/dL Comment: Interpretive Data Fasting glucose >/= 126 mg/dl is diagnostic for diabetes. Fasting is defined as no caloric intake for at least 8 hours. Fasting glucose between 100 mg/dl to 125 mg/dl is diagnostic of prediabetes. In a patient with classic symptoms of hyperglycemia or hyperglycemic crisis, a random glucose >/= 200 mg/dl is diagnostic for diabetes. In the absence of unequivocal hyperglycemia, results should be confirmed by repeat testing. The classification and Diagnosis of Diabetes Diabetes Care 202; 46: S19-S40. Current interpretive data was last revised 2022. Testing performed by: [facility], [address] [place] [address]., [address] Blood 01/04/2025 10:5 0 AM CDT 01/04/2025 2:26 PM CDT us Notinfile Unknown LAB BLOOD ORDERABLES Final Res ult [facility] Department [place] [address] * eGFR (01/04/2025 10:50 AM CDT) eGFR 90 >=60 mL/min/1. 73 m2 Comment: Interpretive Data Reference Interval Normal >/= 90 mL/min/1.73m2 Mildly decreased* 60 - 89 mL/min/1.73m2 Mildly to moderately decreased 45 - 59 mL/min/1.73m2 Moderately to severely decreased 30 - 44 mL/min/1.73m2 Severely decreased 15 - 29 mL/min/1.73m2 Kidney Failure < 15 mL/min/1.73m2 *Relative to young adult level Estimated glomerular filtration rate is determined by the 2020 CKD-EPI equation recommended by the National Kidney Foundation (A Unifying Approach to GFR Estimation: Recommendations of the NKF-ASK Task Force on Reassessing the Inclusion of Race in Diagnosing Kidney Disease, JASN 2020). The CKD-EPI equation should not be used for patients with unstable renal function and has not been validated in children and those over 70. Current interpretive data was last reviewed 2021. Testing performed by: [address] [address] Blood 01/04/2025 10:5 0 AM CDT 01/04/2025 2:26 PM CDT us Notinfile Unknown LAB BLOOD ORDERABLES Final Res ult [facility] Department [place] [address] * Differential, auto (01/04/2025 10:50 AM CDT) Neutrophil abs 3.22 1.50 - 6.50 K/cumm Comment:Testing performed by : [address] [address] Imm gran abs 0.01 0.00 - 0.10 K/cumm [facility] Comment:Testing performed by : [address] [address] Lymphocyte abs 1.84 0.80 - 3.30 K/cumm [facility] Comment:Testing performed by : [address] [address] Monocyte abs 0.42 0.20 - 0.80 K/cumm [facility] Comment:Testing performed by : [address] [address] Eosinophil abs 0.12 0.00 - 0.50 K/cumm [facility] Comment:Testing performed by : [address] [address] Basophil abs 0.03 0.00 - 0.10 K/cumm [facility] Comment:Testing performed by : [address] [address] Neutrophil pct 57.2 % [facility] Comment: Interpretive Data Percent cell count reference ranges are not reported, since discordance with absolute values may lead to misinterpretation of CBC data. Current Interpretive Data was last revised on 2017. Testing performed by: [address] [address] Imm gran pct 0.2 % [facility] Comment: Interpretive Data Percent cell count reference ranges are not reported, since discordance with absolute values may lead to misinterpretation of CBC data. Current Interpretive Data was last revised on 2017. Testing performed by: [address] [address] Lymphocyte pct 32.6 % [facility] Comment: Interpretive Data Percent cell count reference ranges are not reported, since discordance with absolute values may lead to misinterpretation of CBC data. Current Interpretive Data was last revised on 2017. Testing performed by: [address] [address] Monocyte pct 7.4 % [facility] Comment: Interpretive Data Percent cell count reference ranges are not reported, since discordance with absolute values may lead to misinterpretation of CBC data. Current Interpretive Data was last revised on 2017. Testing performed by: [address] [address] Eosinophil pct 2.1 % [facility] Comment: Interpretive Data Percent cell count reference ranges are not reported, since discordance with absolute values may lead to misinterpretation of CBC data. Current Interpretive Data was last revised on 2017. Testing performed by: [address] [address] Basophil pct 0.5 % [facility] Comment: Interpretive Data Percent cell count reference ranges are not reported, since discordance with absolute values may lead to misinterpretation of CBC data. Current Interpretive Data was last revised on 2017. Testing performed by: [address] [address] Blood 01/04/2025 10:5 0 AM CDT 01/04/2025 2:27 PM CDT us Notinfile Unknown LAB BLOOD ORDERABLES Final Res ult [facility] Department [place] [address] * Comprehensive metabolic panel, without glucose (Outreach) (01/04/2025 10:50 AM CDT) Sodium 140 135 - 145 mmol/L Comment:Testing performed by : [address] [address] Potassium, pl 3.7 3.3 - 4.9 mmol/L [facility] Comment:Testing performed by : [address] [address] Chloride 104 97 - 110 mmol/L [facility] Comment:Testing performed by : [address] [address] CO2 24 22 - 32 mmol/L [facility] Comment:Testing performed by : [address] [address] Anion gap 12 2 - 15 mmol/L [facility] Comment:Testing performed by : [address] [address] BUN 18 6 - 25 mg/dL [facility] Comment:Testing performed by : [address] [address] Creatinine 0.77 0.60 - 1.10 mg/dL [facility] Comment:Testing performed by : [address] [address] Calcium 9.4 8.5 - 10.3 mg/dL [facility] Comment:Testing performed by : [address] [address] Protein, pl 6.6 6.5 - 8.5 g/dL [facility] Comment:Testing performed by : [address] [address] Albumin 4.1 3.5 - 5.0 g/dL [facility] Comment:Testing performed by : [address] [address] Bilirubin, total 1.0 0.1 - 1.2 mg/dL [facility] Comment:Testing performed by : [address] [address] Alk phos 48 40 - 130 Units/L [facility] Comment:Testing performed by : [address] [address] AST 28 10 - 45 Units/L [facility] Comment:Testing performed by : [address] [address] ALT 20 7 - 45 Units/L [facility] Comment:Testing performed by : [address] [address] Blood 01/04/2025 10:5 0 AM CDT 01/04/2025 2:26 PM CDT us Notinfile Unknown LAB BLOOD ORDERABLES Final Res ult [facility] Department [place] [address] * (ABNORMAL) CBC with auto differential (01/04/2025 10:50 AM CDT) WBC 5.64 3.80 - 9.90 K/cumm Comment:Testing performed by : [address] [address] Hgb 13.9 11.9 - 15.5 g/dL [facility] Comment:Testing performed by : [address] [address] Hct 43.0 35.6 - 45.5 % [facility] Comment:Testing performed by : [address] [address] Plt 218 150 - 400 K/cumm [facility] Comment:Testing performed by : [address] [address] MPV 10.1 9.1 - 12.3 fL [facility] Comment:Testing performed by : [address] [address] RBC 4.52 3.90 - 5.20 M/cumm [facility] Comment:Testing performed by : [address] [address] MCV 95.1 81.3 - 96.4 fL [facility] Comment:Testing performed by : [address] [address] MCH 30.8 27.1 - 33.3 pg [facility] Comment:Testing performed by : [facility], [address] [place] [address]., [address] MCHC 32.3 32.3 - 35.7 g/dL [facility] Comment:Testing performed by : [address] [address] RDW CV 14.5 11.1 - 14.9 % [facility] Comment:Testing performed by : [address] [address] RDW SD 49.6(H) 35.7 - 48.1 fL [facility] Comment:Testing performed by : [address] [address] NRBC abs 0.00 0.00 - 0.01 K/cumm [facility] Comment:Testing performed by : [address] [address] Blood 01/04/2025 10:5 0 AM CDT 01/04/2025 2:27 PM CDT us Notinfile Unknown LAB BLOOD ORDERABLES Final Res ult [facility] Department [place] [address] * Glucose, random (Outreach) (12/29/2024 11:00 AM CDT) Glucose 88 70 - 199 mg/dL Comment: Interpretive Data Fasting glucose >/= 126 mg/dl is diagnostic for diabetes. Fasting is defined as no caloric intake for at least 8 hours. Fasting glucose between 100 mg/dl to 125 mg/dl is diagnostic of prediabetes. In a patient with classic symptoms of hyperglycemia or hyperglycemic crisis, a random glucose >/= 200 mg/dl is diagnostic for diabetes. In the absence of unequivocal hyperglycemia, results should be confirmed by repeat testing. The classification and Diagnosis of Diabetes Diabetes Care 2021; 46: S19-S40. Current interpretive data was last revised 2022. Blood 12/29/2024 11:0 0 AM CDT 12/29/2024 3:06 PM CDT Jimi Ivey MD LAB BLOOD ORDERABLES Final Result Performing Organization Address [facility] Co de Phone Number [facility] [place] [address] * eGFR (12/29/2024 11:00 AM CDT) eGFR 78 >=60 mL/min/1. 73 m2 Comment: Interpretive Data Reference Interval Normal >/= 90 mL/min/1.73m2 Mildly decreased* 60 - 89 mL/min/1.73m2 Mildly to moderately decreased 45 - 59 mL/min/1.73m2 Moderately to severely decreased 30 - 44 mL/min/1.73m2 Severely decreased 15 - 29 mL/min/1.73m2 Kidney Failure < 15 mL/min/1.73m2 *Relative to young adult level Estimated glomerular filtration rate is determined by the 2020 CKD-EPI equation recommended by the National Kidney Foundation (A Unifying Approach to GFR Estimation: Recommendations of the NKF-ASK Task Force on Reassessing the Inclusion of Race in Diagnosing Kidney Disease, JASN 2020). The CKD-EPI equation should not be used for patients with unstable renal function and has not been validated in children and those over 70. Current interpretive data was last reviewed 2021. Blood 12/29/2024 11:0 0 AM CDT 12/29/2024 3:24 PM CDT Jimi Ivey MD LAB BLOOD ORDERABLES Final Result Performing Organization Address City/[facility]/ZIP Co de Phone Number [facility] Department [place] [address] * Differential, auto (12/29/2024 11:00 AM CDT) Pathologist [facility] Neutrophil abs 2.86 1.50 - 6.50 K/cumm Imm gran abs 0.04 0.00 - 0.10 K/cumm [facility] Lymphocyte abs 1.99 0.80 - 3.30 K/cumm [facility] Monocyte abs 0.45 0.20 - 0.80 K/cumm [facility] Eosinophil abs 0.10 0.00 - 0.50 K/cumm [facility] Basophil abs 0.02 0.00 - 0.10 K/cumm [facility] Neutrophil pct 52.5 % [facility] Comment: Interpretive Data Percent cell count reference ranges are not reported, since discordance with absolute values may lead to misinterpretation of CBC data. Current Interpretive Data was last revised on 2017. Imm gran pct 0.7 % [facility] Comment: Interpretive Data Percent cell count reference ranges are not reported, since discordance with absolute values may lead to misinterpretation of CBC data. Current Interpretive Data was last revised on 2017. Lymphocyte pct 36.4 % [facility] Comment: Interpretive Data Percent cell count reference ranges are not reported, since discordance with absolute values may lead to misinterpretation of CBC data. Current Interpretive Data was last revised on 2017. Monocyte pct 8.2 % [facility] Comment: Interpretive Data Percent cell count reference ranges are not reported, since discordance with absolute values may lead to misinterpretation of CBC data. Current Interpretive Data was last revised on 2017. Eosinophil pct 1.8 % [facility] Comment: Interpretive Data Percent cell count reference ranges are not reported, since discordance with absolute values may lead to misinterpretation of CBC data. Current Interpretive Data was last revised on 2017. Basophil pct 0.4 % [facility] Comment: Interpretive Data Percent cell count reference ranges are not reported, since discordance with absolute values may lead to misinterpretation of CBC data. Current Interpretive Data was last revised on 2017. Blood 12/29/2024 11:0 0 AM CDT 12/29/2024 3:05 PM CDT us Jimi Ivey MD LAB BLOOD ORDERABLES Final Result [facility] [place] [address] * (ABNORMAL) Comprehensive metabolic panel, without glucose (Outreach) (12/29/2024 11:00 AM CDT) [facility] Sodium 143 135 - 145 mmol/L Potassium, pl 3.7 3.3 - 4.9 mmol/L [facility] Chloride 107 97 - 110 mmol/L [facility] CO2 26 22 - 32 mmol/L [facility] Anion gap 10 2 - 15 mmol/L [facility] BUN 11 6 - 25 mg/dL [facility] Creatinine 0.87 0.60 - 1.10 mg/dL [facility] Calcium 8.6 8.5 - 10.3 mg/dL [facility] Protein, pl 6.4(L) 6.5 - 8.5 g/dL [facility] Albumin 3.7 3.5 - 5.0 g/dL [facility] Bilirubin, total 0.4 0.1 - 1.2 mg/dL [facility] Alk phos 51 40 - 130 Units/L [facility] AST 21 10 - 45 Units/L [facility] ALT 18 7 - 45 Units/L [facility] Blood 12/29/2024 11:0 0 AM CDT 12/29/2024 3:06 PM CDT Jimi Ivey MD LAB BLOOD ORDERABLES Final Result [facility] [place] [address] * CBC with auto differential (12/29/2024 11:00 AM CDT) [facility] WBC 5.46 3.80 - 9.90 K/cumm Hgb 13.7 11.9 - 15.5 g/dL [facility] Hct 41.7 35.6 - 45.5 % [facility] Plt 227 150 - 400 K/cumm [facility] MPV 10.2 9.1 - 12.3 fL [facility] RBC 4.44 3.90 - 5.20 M/cumm [facility] MCV 93.9 81.3 - 96.4 fL [facility] MCH 30.9 27.1 - 33.3 pg [facility] MCHC 32.9 32.3 - 35.7 g/dL [facility] RDW CV 14.0 11.1 - 14.9 % [facility] RDW SD 47.5 35.7 - 48.1 fL [facility] NRBC abs 0.00 0.00 - 0.01 K/cumm [facility] Blood 12/29/2024 11:0 0 AM CDT 12/29/2024 3:05 PM CDT Jimi Ivey MD LAB BLOOD ORDERABLES Final Result [facility] [place] [address] * SCAN - LABS (12/28/2024) us Provider Scanning Final Result from Last 3 Months Insurance [facility] Member Subscriber Plan / Payer (Ef fective 2020-Present) Name:Destiney Preston Relation to Subscriber:Self Name:Mohan Destiney Rick Payer ID:[id number] (NAIC) Type:MEDICAID RISK OTHER Address: [place] [id number] Care Teams Superintendent Communications Relationship Specialty Start Date End Date Elena Elliott DO PCP - General Family Medicine 11/14/21 Jimi Ivey MD [id number] [place] [address] PCP - Home Infusion Attending Pulmonary Disease 01/06/25
--- NOTE | 2025-03-17 18:30 | ECG_ITS ---
Test Date: 2025-03-17 18:50:54 Measurements Intervals [place] Rate: 95 P: 76 DC: 142 QRS: 48 QRSD: 81 T: 50 QT: 325 QTc: 410 Interpretive Statements SINUS RHYTHM POSSIBLE LEFT ATRIAL ENLARGEMENT BORDERLINE ST-T WAVE ABNORMALITY- ANT/INF LEADS BORDERLINE ECG Compared to ECG 09/18/2023 13:28:02 HEART RATE HAS DECREASED Electronically Signed On 03-18-2025 06:14:08 BOILER ROOM OPERATOR by Eliot Morales D.O.
--- NOTE | 2025-03-17 18:31 | ED.URI ---
HPI - URI/Sore Throat General Chief Complaint: Upper Respiratory Infection <Wendie Gomez APRN - Last Filed: 03/17/25 18:35> Stated Complaint: cough, fever <Wendie Gomez APRN - Last Filed: 03/17/25 18:35> Time Seen by Provider: 03/17/25 18:31 <Wendie Gomez APRN - Last Filed: 03/17/25 18:35> Focused HPI: Patient is a 59-year-old female who presents to the ER with a 3 day history decreased p.o. intake, full body aches, wet cough, head fullness and wheezing. She reports she has a history of bronchiectasis Patient reports yesterday she started coughing up ?thick, green stuff. She is unsure of her T-max. Patient reports she a history of chronic back pain and has had back surgery. She also reports she has had a PICC line to receive IV antibiotics due to Pseudomonas in the past. Patient reports she has been using her albuterol inhaler home but has not been helping relieve her symptoms. She denies any significant shortness of breath, acute back pain, or abdominal pain. Patient reports most of her body aches are radiating to her bilateral hips. GENERAL: Ill-appearing, well-nourished, and in no acute distress. HEAD: Normocephalic, atraumatic. CHEST: Clear to auscultation except R upper lobe wheezing. ?No respiratory distress. HEART: Regular rate and rhythm.? NEURO: ?Alert and oriented x3. Patient screened in triage and initial orders placed.? ?Additional care and disposition to be based upon?diagnostic testing and treatment. <Wendie Gomez APRN - Last Filed: 03/17/25 18:35> History of Present Illness HPI Narrative: Agree with the HPI. Patient has been in clinical trials previously a wash to because of her bronchiectasis and multiple MDRO pneumonias. Had previously had evidence of Levaquin resistance but this seems to have improved per her hotel or motel manager. <Rodríguez Zafar DO - Last Filed: 03/17/25 22:48> Related Data Home Medications: Home Medications ?Medication ?Instructions ?Recorded ?Confirmed ?Last Taken ?Type ferrous sulfate 325 mg (65 mg 325 mg PO QAM 08/10/21 02/05/25 12/14/21 History iron) tablet brensocatib PO DAILY 07/31/23 02/05/25 12/17/24 History valacyclovir 1 gram tablet 1,000 mg PO Q12H PRN herpes flare 09/28/24 02/05/25 Unknown History (Valtrex) <Wendie Gomez, MARKETING ENGINEER - Last Filed: 03/17/25 18:35> Allergies/Adverse Reactions: Allergies Allergy/AdvReac Type Severity Reaction Status Date / Time hepatitis B virus vaccine Allergy Unknown Anxiety Verified 02/05/25 08:43 Penicillins Allergy Unknown Unknown Verified 02/05/25 08:43 <Wendie Gomez MARKETING ENGINEER - Last Filed: 03/17/25 18:35> Review of Systems Review of Systems: All systems reviewed & are unremarkable except as noted in HPI and below <Rodríguez Zafar DO - Last Filed: 03/17/25 22:48> [facility] Past Medical History Medical History: Medical History Bronchiectasis at age 22 Anxiety disorder, unspecified ADD (attention deficit disorder) <Wendie Gomez APRN - Last Filed: 03/17/25 18:35> Surgical History Surgical History: Surgical History Hx of breast implants, bilateral History of back surgery Disc replacement surgery Hx of tonsillectomy History of dilation and curettage History of myomectomy <Wendie Gomez APRN - Last Filed: 03/17/25 18:35> Family History Family History: Family History Grandparent Acute myocardial infarction Other Pancreas cancer Breast cancer Other Brain cancer <Wendie Gomez APRN - Last Filed: 03/17/25 18:35> Social History Social History: Social History Social History: Patient lives at home with her 2 daughters. Her of brain cancer. 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 She is independent in her daily activities. She designates her daughters, Mishel and Meg, as her surrogate decision maker. She is a full code. Smoking status: Former smoker Alcohol intake: current Alcohol use details: 1-2 drinks/month Substance use: current Substance use type: marijuana Other substance usage details: Marijuana gummy once/week Lack of Transportation: No Lack of Food: Never True Current Housing: I Have Housing Concerned About Future Housing: No Difficulty Paying Gas/Electric Bills: No Difficulty Paying for Meds: No Currently Unemployed: No Education: Bachelor's Degree Difficulty w/ Childcare or Family Care: No Living arrangements: with family Additional living arrangements comments: Occupation/Education: occupation Gender identity (if verbalized by the patient): Female Sexual Orientation (if Verbalized by the Patient): Straight or Heterosexual Spiritual care concerns: No <Wendie Gomez, MARKETING ENGINEER - Last Filed: 03/17/25 18:35> Exam Narrative: APPEARANCE: No acute distress, nontoxic, resting in bed EYES: EOMI HEENT: Normocephalic, atraumatic, OMM RESPIRATORY: No respiratory distress expiratory wheeze most notable the right upper lobe CARDIOVASCULAR: Regular rate and rhythm without murmurs rubs or gallops. ABDOMINAL: Soft, nontender, nondistended, no rebound or guarding MUSCULOSKELETAl: Moves all extremities. No clubbing, cyanosis or edema. NEURO: Awake and alert. Following commands, speech normal, no focal deficits SKIN:: Warm, dry. No rashes lesions or abrasions PSYCHIATRIC: Normal affect/mood, <Rodríguez Zafar DO - Last Filed: 03/17/25 22:48> Course Vital Signs Vital signs: Vital Signs Pulse Rate 110 H 03/17/25 17:14 Respiratory Rate 16 03/17/25 17:14 Blood Pressure 104/68 03/17/25 17:14 Pulse Oximetry 96 03/17/25 17:14 Pulse Rate 114 H 03/17/25 21:44 Respiratory Rate 18 03/17/25 21:44 Blood Pressure 104/68 03/17/25 17:14 Pulse Oximetry 96 03/17/25 21:19 Oxygen Delivery Room Air 03/17/25 21:19 <Wendie Gomez, MARKETING ENGINEER - Last Filed: 03/17/25 18:35> Vital Signs Pulse Rate 110 H 03/17/25 17:14 Respiratory Rate 16 12/17/25 17:14 Blood Pressure 104/68 03/17/25 17:14 Pulse Oximetry 96 03/17/25 17:14 Pulse Rate 114 H 03/17/25 21:44 Respiratory Rate 18 03/17/25 21:44 Blood Pressure 104/68 03/17/25 17:14 Pulse Oximetry 96 03/17/25 21:19 Oxygen Delivery Room Air 03/17/25 21:19 <Rodríguez Zafar, DO - Last Filed: 03/17/25 22:48> [facility] MDM Narrative Medical decision making narrative: 59-year-old female Presenting for cough and shortness of breath. On initial evaluation patient was in no acute distress afebrile, hemodynamic stable. Differentials include but are not limited to: ACS, CHF Exacerbation, COPD exacerbation, PE, PNA, PTX, bronchitis, viral syndrome Notable exam findings: X-ray wheezes most notable in the right upper lung patel I personally reviewed the patient's lab result. Notable lab findings: CBC without significant abnormalities. Mild hyponatremia 135. UA with microscopic hematuria without any evidence of infection. I personally reviewed the patient's images and interpret as follows: Chest x-ray: Normal cardiac silhouette, no consolidations, no pleural effusions, no pulmonary vascular congestion I personally reviewed the patient's EKGs: Normal sinus rhythm rate of 95, normal axis intervals acute ST or T-wave changes On further discussion with the patient, she has required multiple antibiotics previously for pseudomonas pneumonia and previously required a PICC for this. Most recently she was on doxycycline in December. She has previously been on levaquin, and was noted to have resistance to that however noted that she had been retested and was apparently sensitive to it again. Thus, patient will be started on levaquin for likely pneumonia at this time. D-dimer had been ordered in triage and was elevated so CTA chest will be obtained. CTA chest showed no PE, there was noted chronic tree-in-bud opacities in the lower lobes that are increased as well as worsening bronchiectasis with bronchial wall thickening the lower lobes. This is likely consistent with her prior diagnoses of bronchiectasis with pneumonia a potentially Pseudomonas. She will be given a prescription for Levaquin and prednisone. She was advised to call her hotel or motel manager tomorrow for further evaluation. Patient was agreeable to this plan. Given strict return precautions. <Rodríguez DO Andrade - Last Filed: 03/17/25 22:48> Differential Diagnosis Differential Diagnosis: ACS, CHF Exacerbation, COPD exacerbation, PE, PNA, PTX, bronchitis, viral syndrome <Rodríguez DO Andrade - Last Filed: 03/17/25 22:48> Lab Data Result diagrams: 03/17/25 19:01 03/17/25 19:01 <Wendie Gomez MARKETING ENGINEER - Last Filed: 03/17/25 18:35> Labs: Lab Results 03/17/25 03/17/25 Range/Units 19:01 20:37 WBC 7.2 (4.5-10.0) K/mm3 RBC 5.24 (4.2-5.4) M/mm3 Hgb 16.0 H D (12.0-15.0) g/dL Hct 48.2 H (37.0-47.0) % MCV 92.0 (80-100) fl MCH 30.5 (26-34) pg MCHC 33.2 (32-36) g/dl RDW 13.5 (11.5-14.5) % Plt Count 159 (150-375) k/mm3 MPV 9.4 (7.4-10.4) fl Immature Gran % (Auto) 0.3 (0-0.5) % Neut % (Auto) 85.2 H (45.5-73.1) % Lymph % (Auto) 9.5 L (18.3-44.2) % [facility] % (Auto) 4.7 (2.6-8.5) % Eos % (Auto) 0.0 (0-4.4) % Baso % (Auto) 0.3 (0.2-1.2) % Lymph # (Auto) 0.68 L (0.9-3.2) K/mm3 [facility] # (Auto) 0.3 (0.1-0.6) K/mm3 Eos # (Auto) 0.0 (0-0.3) K/mm3 Baso # (Auto) 0.0 (0.0-0.1) K/mm3 Abs Immat Gran (auto) 0.02 (0.00-0.031) K/mm3 Absolute Neuts (auto) 6.1 (1.3-6.7) K/mm3 Absolute Nucleated RBC 0.000 (0.0-0.012) K/mm3 Nucleated RBC % 0.0 (0.0-0.2) % PT 14.1 (11.1-14.7) Seconds INR 1.1 APTT 31.4 (22.3-36.8) Seconds D-Dimer 1.73 H (<0.48) ug/mL Sodium 135 L (137-145) mmol/L Potassium 3.6 (3.4-5.0) mmol/L Chloride 101 (98-107) mmol/L Carbon Dioxide 25 (22-30) mmol/L Anion Gap 9 (4-12) mmol/L BUN 17 (7-17) mg/dL Creatinine 0.90 (0.7-1.0) mg/dL Estim Creat Clear Calc 57 ml/min Estimated GFR > 60 (59 - ) Glucose 85 (65-110) mg/dL Calcium 9.1 (8.4-10.2) mg/dL Magnesium 2.1 (1.6-2.3) mg/dL Total Bilirubin 1.0 (0.2-1.3) mg/dL AST 58 H (14-36) U/L ALT 29 (6-35) U/L Alkaline Phosphatase 59 (38-126) U/L Total Protein 7.9 (6.3-8.2) g/dL Albumin 4.4 (3.5-5.1) g/dL Urine Color Dark yellow (Yellow) Urine Appearance Clear (Clear) Urine pH 5.5 (5.0-9.0) Ur Specific [place] 1.034 (1.001-1.035) Urine Protein 2+ H (Negative) mg/dL Urine Glucose (UA) Negative (Negative) mg/dL Urine Ketones Trace H (Negative) mg/dL Ur Blood (Man) Trace (Negative) Urine Nitrate Negative (Negative) Urine Bilirubin 1+ H (Negative) Urine Urobilinogen 1.0 (<2.0) mg/dL Add Ur Microanalysis Reviewed Leukocyte Esterase Rfl Negative (Negative) CEE/UL Urine RBC 6-10 H (0-2) /hpf Urine WBC 0-5 (0-3) /hpf Ur Squamous Epith Cells Few (Few) /hpf Urine Bacteria None seen /hpf Urine Casts 3-5 <Wendie L. Patricia, MARKETING ENGINEER - Last Filed: 03/17/25 18:35> Lab Results 03/17/25 03/17/25 Range/Units 19:01 20:37 WBC 7.2 (4.5-10.0) K/mm3 RBC 5.24 (4.2-5.4) M/mm3 Hgb 16.0 H D (12.0-15.0) g/dL Hct 48.2 H (37.0-47.0) % MCV 92.0 (80-100) fl MCH 30.5 (26-34) pg MCHC 33.2 (32-36) g/dl RDW 13.5 (11.5-14.5) % Plt Count 159 (150-375) k/mm3 MPV 9.4 (7.4-10.4) fl Immature Gran % (Auto) 0.3 (0-0.5) % Neut % (Auto) 85.2 H (45.5-73.1) % Lymph % (Auto) 9.5 L (18.3-44.2) % [facility] % (Auto) 4.7 (2.6-8.5) % Eos % (Auto) 0.0 (0-4.4) % Baso % (Auto) 0.3 (0.2-1.2) % Lymph # (Auto) 0.68 L (0.9-3.2) K/mm3 [facility] # (Auto) 0.3 (0.1-0.6) K/mm3 Eos # (Auto) 0.0 (0-0.3) K/mm3 Baso # (Auto) 0.0 (0.0-0.1) K/mm3 Abs Immat Gran (auto) 0.02 (0.00-0.031) K/mm3 Absolute Neuts (auto) 6.1 (1.3-6.7) K/mm3 Absolute Nucleated RBC 0.000 (0.0-0.012) K/mm3 Nucleated RBC % 0.0 (0.0-0.2) % PT 14.1 (11.1-14.7) Seconds INR 1.1 APTT 31.4 (22.3-36.8) Seconds D-Dimer 1.73 H (<0.48) ug/mL Sodium 135 L (137-145) mmol/L Potassium 3.6 (3.4-5.0) mmol/L Chloride 101 (98-107) mmol/L Carbon Dioxide 25 (22-30) mmol/L Anion Gap 9 (4-12) mmol/L BUN 17 (7-17) mg/dL Creatinine 0.90 (0.7-1.0) mg/dL Estim Creat Clear Calc 57 ml/min Estimated GFR > 60 (59 - ) Glucose 85 (65-110) mg/dL Calcium 9.1 (8.4-10.2) mg/dL Magnesium 2.1 (1.6-2.3) mg/dL Total Bilirubin 1.0 (0.2-1.3) mg/dL AST 58 H (14-36) U/L ALT 29 (6-35) U/L Alkaline Phosphatase 59 (38-126) U/L Total Protein 7.9 (6.3-8.2) g/dL Albumin 4.4 (3.5-5.1) g/dL Urine Color Dark yellow (Yellow) Urine Appearance Clear (Clear) Urine pH 5.5 (5.0-9.0) Ur Specific [place] 1.034 (1.001-1.035) Urine Protein 2+ H (Negative) mg/dL Urine Glucose (UA) Negative (Negative) mg/dL Urine Ketones Trace H (Negative) mg/dL Ur Blood (Man) Trace (Negative) Urine Nitrate Negative (Negative) Urine Bilirubin 1+ H (Negative) Urine Urobilinogen 1.0 (<2.0) mg/dL Add Ur Microanalysis Reviewed Leukocyte Esterase Rfl Negative (Negative) CEE/UL Urine RBC 6-10 H (0-2) /hpf Urine WBC 0-5 (0-3) /hpf Ur Squamous Epith Cells Few (Few) /hpf Urine Bacteria None seen /hpf Urine Casts 3-5 <Rodríguez Joseforth, DO - Last Filed: 03/17/25 22:48> Imaging Data Radiologist's impression: ITS Impressions Chest X-Ray 03/17/25 19:10 IMPRESSION: No acute lung findings.] [ ] Chest CTA 03/17/25 22:34 IMPRESSION: There is no pulmonary embolism, aortic dissection, pericardial fluid or thoracic aneurysm. Chronic tree-in-bud opacities predominantly in the lower lobes bilaterally has increased. There is worsening bronchiectasis and bronchial wall thickening in the lower lobes. All CT scans at this facility are performed using low dose modulation techniques as appropriate to perform exam including the following: automated exposure control; use of iterative reconstruction technique; adjustment of the mA and/or kV according to patient size (this includes techniques or standardized protocols for targeted exams where dose is matched to indication/reason for exam). <Wendie Gomez APRN - Last Filed: 03/17/25 18:35> ITS Impressions Chest X-Ray 03/17/25 19:10 IMPRESSION: No acute lung findings.] [ ] Chest CTA 03/17/25 22:34 IMPRESSION: There is no pulmonary embolism, aortic dissection, pericardial fluid or thoracic aneurysm. Chronic tree-in-bud opacities predominantly in the lower lobes bilaterally has increased. There is worsening bronchiectasis and bronchial wall thickening in the lower lobes. All CT scans at this facility are performed using low dose modulation techniques as appropriate to perform exam including the following: automated exposure control; use of iterative reconstruction technique; adjustment of the mA and/or kV according to patient size (this includes techniques or standardized protocols for targeted exams where dose is matched to indication/reason for exam). <Rodríguez Zafar DO - Last Filed: 03/17/25 22:48> Discharge Plan Discharge Clinical Impression: Bronchiectasis Pneumonia Qualifiers: Pneumonia type: due to unspecified organism Laterality: bilateral Lung location: lower lobe of lung Qualified Code(s): J18.9 - Pneumonia, unspecified organism <Wendie Gomez APRN - Last Filed: 03/17/25 18:35> Patient Disposition: Home <Wendie Gomez APRN - Last Filed: 03/17/25 18:35> Condition: Stable <Wendie Gomez APRN - Last Filed: 03/17/25 18:35> Instructions: Antibiotic Form, Pneumonia (ED) <Wendie Gomez APRN - Last Filed: 03/17/25 18:35> Additional Instructions: Call your hotel or motel manager tomorrow regarding the findings today. Take Levaquin and prednisone as prescribed. Return to the ED for any new or worsening symptoms. CTA Chest IMPRESSION: There is no pulmonary embolism, aortic dissection, pericardial fluid or thoracic aneurysm. Chronic tree-in-bud opacities predominantly in the lower lobes bilaterally has increased. There is worsening bronchiectasis and bronchial wall thickening in the lower lobes. <Wendie Gomez APRN - Last Filed: 03/17/25 18:35> Patient Language: Swedish <Wendie Gomez APRN - Last Filed: 03/17/25 18:35> Prescriptions: New levofloxacin 750 mg tablet 750 mg PO DAILY 7 Days Qty: 7 0RF prednisone 10 mg tablet 10 mg PO DIRECTED Qty: 26 0RF Rx Instructions: Take 4 tabs daily for 3 days, then 3 tabs daily for 3 days, then 2 tabs daily for 2 days, then 1 tab daily for 1 day No Action sodium chloride 3 % solution for nebulization 4 ml inhalation Q12H PRN (Reason: secretions) Qty: 120 0RF Rx Instructions: Hypertonic saline 3% for nebulizer use. Use bid prn. brensocatib 10 mg PO DAILY estradiol-norethindrone acet [Activella] 1-0.5 mg tablet 1 tablet PO DAILY Qty: 84 3RF dextroamphetamine-amphetamine [Adderall XR] 30 mg capsule,extended release 24hr 30 mg PO QAM Qty: 30 0RF benzonatate 200 mg capsule 200 mg PO TID PRN (Reason: cough) Qty: 30 3RF valacyclovir [Valtrex] 1 gram tablet 1,000 mg PO Q12H PRN (Reason: herpes flare) ferrous sulfate 325 mg (65 mg iron) Tablet 325 mg PO QAM albuterol sulfate [Ventolin HFA] 90 mcg/actuation HFA aerosol inhaler 2 puff inhalation Q4H PRN (Reason: shortness of breath or wheezing) Qty: 1 4RF albuterol sulfate 2.5 mg /3 mL (0.083 %) solution for nebulization 2.5 mg inhalation Q4-6H PRN (Reason: shortness of breath or wheezing) Qty: 90 2RF trazodone 50 mg tablet 100 mg PO HS PRN (Reason: Insomnia) Qty: 180 1RF Rx Instructions: TAKE 1 TO 2 TABLETS BY MOUTH EVERY DAY AT BEDTIME NEEDED FOR INSOMNIA FOR SLEEP <Wendie Gomez APRN - Last Filed: 03/17/25 18:35> Follow-up/Referrals: Elena Elliott DO [Primary Care Provider, Family Practice] <Wendie Gomez, MARKETING ENGINEER - Last Filed: 03/17/25 18:35>
[2025-03-17 19:06] LABS: Hematocrit 48.2 % (37.0-47.0); Hemoglobin 16.0 g/dL (12.0-15.0); Immature Granulocyte Percent A 0.3 % (0-0.5); Lymphocytes Absolute Auto 0.68 K/mm3 (0.9-3.2); Mean Corpuscular HGB Conc 33.2 g/dl (32-36); Mean Corpuscular Hemoglobin 30.5 pg (26-34); Mean Corpuscular Volume 92.0 fl (80-100); Nucleated Red Blood Cells Absolute Auto 0.000 K/mm3 (0.0-0.012); Nucleated Red Blood Cells Perc 0.0 % (0.0-0.2); Platelet Count Result 159 k/mm3 (150-375); Red Blood Count 5.24 M/mm3 (4.2-5.4); White Blood Count 7.2 K/mm3 (4.5-10.0)
[2025-03-17 19:21] LABS: Alanine Aminotransferase 29 U/L (6-35); Albumin Level 4.4 g/dL (3.5-5.1); Alkaline Phosphatase 59 U/L (38-126); Anion Gap 9 mmol/L (4-12); Aspartate Amino Transferase 58 U/L (14-36); Bilirubin,Total 1.0 mg/dL (0.2-1.3); Blood Urea Nitrogen 17 mg/dL (7-17); Calcium 9.1 mg/dL (8.4-10.2); Carbon Dioxide 25 mmol/L (22-30); Chloride 101 mmol/L (98-107); Estimated CRCL calculation 57 ml/min; Estimated Glomerular Filt Rate > 60; Glucose 85 mg/dL (65-110); Magnesium 2.1 mg/dL (1.6-2.3); Potassium 3.6 mmol/L (3.4-5.0); Sodium 135 mmol/L (137-145); Total Protein 7.9 g/dL (6.3-8.2)
[2025-03-17 19:24] LABS: INR 1.1; Prothrombin Time 14.1 Seconds (11.1-14.7)
[2025-03-17 19:25] LABS: Partial Thromboplastin Time 31.4 Seconds (22.3-36.8)
--- OUTSIDE RECORDS SUMMARY | 2025-03-17 20:29 | XMS_ITS | Clinical Summary ---
Author Organization [facility] Address [address] [place] [id number] Care Team Providers Care Senior Manager Quality Assurance Name Role Phone Unavailable Primary Care Provider [...]
--- OUTSIDE RECORDS SUMMARY | 2025-03-17 20:29 | XMS_ITS | Clinical Summary ---
Author Organization [facility] Medical Office Building B Address [address] [place] [address] Care Team Providers Care Hand Shoe Cutter Name Role Phone Elena Elliott Primary Care Provider +1- [phone] Jimi Ivey MD Unavailable +1- [phone] Allergies Active Allergy Reactions Criticality Noted Date [...] Route Frequency Start Date End Date [facility] (/[facility] tablet 1 tabletIndications:Research exam 1 tablet oral Daily 05/11/2022 Active [facility] brensocatib/placebo (/ASPEN) tablet 1 tabletIndications:Research exam 1 tablet oral Daily 06/08/2022 Active [facility] brensocatib/placebo (/ASPEN) tablet 1 tabletIndications:Research study patient 1 tablet oral Daily 09/03/2022 Active [facility] brensocatib/placebo (/ASPEN) tablet 1 tabletIndications:Research study patient [...] Team Description 01/28/2025 Telephone [facility] Advanced Medicine [facility] [place] [address] [place] [phone] Dejuan Bajwa CPhT 01/28/2025 Results Follow-Up [facility] Medicine Pulmonary [address] [place] [address] Medicine [facility] [place] [address] [place] [phone] Jimi Ivey MD X-ray chest 2 views 01/27/2025 1:54 PM CDT - 01/27/2025 11:59 PM CDT Hospital Encounter [facility] [address] [place] [address] Bronchiectasis, uncomplicated (HCC) Discharge Disposition: Discharge to home or self care 01/27/2025 Orders Only [facility] [address] [place] [address] Medicine [facility] [place] [address] [place] [phone] Rafael Aguirre, TODD Bronchiectasis, uncomplicated (HCC) (Primary Dx) 01/26/2025 Telephone [facility] Medicine Pulmonary [facility] Medicine [facility] [place] [address] [place] [address] Rafael Aguirre, RN 01/26/2025 Orders Only [facility] [address] [facility] 8th [place] [address] [place] [address] Rafael Aguirre, RN Bronchiectasis, uncomplicated (HCC) (Primary Dx) 01/26/2025 Orders Only [facility] [address] [facility] 8th [place] [address] [place] [address] Jimi Ivey MD 01/26[facility] [address] [facility] 8th [place] [address] [place] [address] Rafael Aguirre, TODD 01/13/2025 Orders Only [facility] HH Scheduling [address] [place] [address] Jimi Ivey MD 01/12/2025 10:30 AM CDT Home Care Visit [facility] Home Infusion Therapy [address] [place] [address] Sayra Porter RN ME DISCHARGE VISIT 01/06/2025 Home Infusion [facility] Home Infusion Therapy [address] [place] [address] Bunny Liu RPh Bronchiectasis without acute exacerbation (HCC) (Primary Dx) 01/06/2025 Plan of Care Documentation [facility] Home Infusion Therapy [address] [place] [address] 01/04/2025 1:52 PM CDT - 01/04/2025 11:59 PM CDT Hospital Encounter [facility] [address] [place] [address] Discharge Disposition: Discharge to home or self care 01/04/2025 12:00 PM CDT Home Care Visit [facility] Home Infusion Therapy [address] [place] [address] Dinesh Hoff RN HI ROUTINE VISIT 01/04/2025 Telephone [facility] [address] [facility] 8th [place] [address] [place] [address] Rafael Aguirre, TODD 12/29/2024 11:00 AM CDT - 12/29/2024 11:59 PM CDT Hospital Encounter [facility] [address] [place] [address] Discharge Disposition: Discharge to home or self care 12/29/2024 10:30 AM CDT Home Care Visit [facility] Home Infusion Therapy [address] [place] [address] Dinesh Hoff RN ME INITIAL VISIT 12/29/2024 9:30 AM CDT Telemedicine [facility] Medicine Pulmonary [address] [place] [address] [place] [address] Jimi Ivey MD Pseudomonas respiratory infection (Primary Dx); Bronchiectasis, uncomplicated (HCC) 12/29/2024 Results Follow-Up [facility] Pulmonary [address] [place] [address] Jimi Ivey MD CBC with auto differential 12/28/2024 Orders Only [facility] Scanning, Provider 12/28/2024 Plan of Care Documentation [facility] Home Infusion Therapy [address] [place] [address] 12/28/2024 Home Infusion [facility] Home Infusion Therapy [address] [place] [address] Radha Gallego RPh Bronchiectasis without acute exacerbation (HCC) (Primary Dx); Bronchiectasis with acute exacerbation (HCC); Pseudomonas respiratory infection 12/28/2024 Telephone [facility] Home Infusion Therapy [address] [place] [address] Argenis Pizarro 12/28/2024 Telephone [facility] Medicine Pulmonary [address] [place] [address] [place] [address] Rafael Aguirre, TODD 12/28/2024 Home Infusion [facility] Home Infusion Therapy [address] [place] [address] Graciela Arreola 12/28/2024 Telephone [facility] Medicine Pulmonary [address] [place] [address] [place] [address] Rafael Aguirre, TODD 12/25/2024 Telephone [facility] Pulmonary [address] [place] [address] [place] [address] Rafael Aguirre, RN 12/24/2024 Telephone [facility] Medicine Pulmonary [address] [facility] 8th [place] [address] [place] [address] Rafael Aguirre, TODD 12/24/2024 Orders Only [facility] Medicine Pulmonary [address] [facility] 8th [place] [address] [place] [address] Jimi Ivey MD 12/17/2024 Documentation Critical Care Medicine Gama Ramesh MD 12/17/2024 Telephone [facility] Pulmonary [address] [facility] 8th [place] [address] [place] [phone] Rafael Aguirre, RN from Last 3 Months [...] on file 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 Testing performed by: [facility] [place], [address] [place] [address]., [address] Blood 01/04/2025 10:5 0 AM CDT 01/04/2025 2:26 PM CDT us Notinfile Unknown LAB BLOOD ORDERABLES Final Res ult [facility] [place] [address] * eGFR (01/04/2025 10:50 AM CDT) eGFR [...] was last reviewed 2021. Testing performed by: [address] [address] Blood 01/04/2025 10:5 0 AM CDT 01/04/2025 2:26 PM CDT us Notinfile Unknown LAB BLOOD ORDERABLES Final Res ult [facility] Department [place] [address] * Differential, auto (01/04/2025 10:50 AM CDT) Neutrophil abs 3.22 1.50 - 6.50 K/cumm Comment:Testing performed by : [address] [address] Imm gran abs 0.01 0.00 - 0.10 K/cumm [facility] Comment:Testing performed by : [address] [address] Lymphocyte abs 1.84 0.80 - 3.30 K/cumm [facility] Comment:Testing performed by : [address] [address] Monocyte abs 0.42 0.20 - 0.80 K/cumm [facility] Comment:Testing performed by : [address] [address] Eosinophil abs 0.12 0.00 - 0.50 K/cumm [facility] Comment:Testing performed by : [address] [address] Basophil abs 0.03 0.00 - 0.10 K/cumm [facility] Comment:Testing performed by : [address] [address] Neutrophil pct 57.2 % [facility] Comment: Interpretive Data Percent cell count reference ranges are not reported, since discordance with absolute values may lead to misinterpretation of CBC data. Current Interpretive Data was last revised on 2017. Testing performed by: [address] [address] Imm gran pct 0.2 % [facility] Comment: Interpretive Data Percent cell count reference ranges are not reported, since discordance with absolute values may lead to misinterpretation of CBC data. Current Interpretive Data was last revised on 2017. Testing performed by: [address] [address] Lymphocyte pct 32.6 % [facility] Comment: Interpretive Data Percent cell count reference ranges are not reported, since discordance with absolute values may lead to misinterpretation of CBC data. Current Interpretive Data was last revised on 2017. Testing performed by: [address] [address] Monocyte pct 7.4 % [facility] Comment: Interpretive Data Percent cell count reference ranges are not reported, since discordance with absolute values may lead to misinterpretation of CBC data. Current Interpretive Data was last revised on 2017. Testing performed by: [address] [address] Eosinophil pct 2.1 % [facility] Comment: Interpretive Data Percent cell count reference ranges are not reported, since discordance with absolute values may lead to misinterpretation of CBC data. Current Interpretive Data was last revised on 2017. Testing performed by: [address] [address] Basophil pct 0.5 % [facility] Comment: Interpretive Data Percent cell count reference ranges are not reported, since discordance with absolute values may lead to misinterpretation of CBC data. Current Interpretive Data was last revised on 2017. Testing performed by: [address] [address] Blood 01/04/2025 10:5 0 AM CDT 01/04/2025 2:27 PM CDT us Notinfile Unknown LAB BLOOD ORDERABLES Final Res ult [facility] [place] [address] * Comprehensive metabolic panel, without glucose (Outreach) (01/04/2025 10:50 AM CDT) Sodium 140 135 - 145 mmol/L Comment:Testing performed by : [address] [address] Potassium, pl 3.7 3.3 - 4.9 mmol/L [facility] Comment:Testing performed by : [address] [address] Chloride 104 97 - 110 mmol/L [facility] Comment:Testing performed by : [address] [address] CO2 24 22 - 32 mmol/L [facility] Comment:Testing performed by : [address] [address] Anion gap 12 2 - 15 mmol/L [facility] Comment:Testing performed by : [address] [address] BUN 18 6 - 25 mg/dL [facility] Comment:Testing performed by : [address] [address] Creatinine 0.77 0.60 - 1.10 mg/dL [facility] Comment:Testing performed by : [address] [address] Calcium 9.4 8.5 - 10.3 mg/dL [facility] Comment:Testing performed by : [address] [address] Protein, pl 6.6 6.5 - 8.5 g/dL [facility] Comment:Testing performed by : [address] [address] Albumin 4.1 3.5 - 5.0 g/dL [facility] Comment:Testing performed by : [address] [address] Bilirubin, total 1.0 0.1 - 1.2 mg/dL [facility] Comment:Testing performed by : [address] [address] Alk phos 48 40 - 130 Units/L [facility] Comment:Testing performed by : [address] [address] AST 28 10 - 45 Units/L [facility] Comment:Testing performed by : [address] [address] ALT 20 7 - 45 Units/L [facility] Comment:Testing performed by : [address] [address] Blood 01/04/2025 10:5 0 AM CDT 01/04/2025 2:26 PM CDT us Notinfile Unknown LAB BLOOD ORDERABLES Final Res ult [facility] [place] [address] * (ABNORMAL) CBC with auto differential (01/04/2025 10:50 AM CDT) WBC 5.64 3.80 - 9.90 K/cumm Comment:Testing performed by : [address] [address] Hgb 13.9 11.9 - 15.5 g/dL [facility] Comment:Testing performed by : [address] [address] Hct 43.0 35.6 - 45.5 % [facility] Comment:Testing performed by : [address] [address] Plt 218 150 - 400 K/cumm [facility] Comment:Testing performed by : [address] [address] MPV 10.1 9.1 - 12.3 fL [facility] Comment:Testing performed by : [address] [address] RBC 4.52 3.90 - 5.20 M/cumm [facility] Comment:Testing performed by : [address] [address] MCV 95.1 81.3 - 96.4 fL [facility] Comment:Testing performed by : [address] [address] MCH 30.8 27.1 - 33.3 pg [facility] Comment:Testing performed by : [facility] [place], [address] [place] [address]., [address] MCHC 32.3 32.3 - 35.7 g/dL [facility] Comment:Testing performed by : [address] [address] RDW CV 14.5 11.1 - 14.9 % [facility] Comment:Testing performed by : [address] [address] RDW SD 49.6(H) 35.7 - 48.1 fL [facility] Comment:Testing performed by : [address] [address] NRBC abs 0.00 0.00 - 0.01 K/cumm [facility] Comment:Testing performed by : [address] [address] Blood 01/04/2025 10:5 0 AM CDT 01/04/2025 2:27 PM CDT us Notinfile Unknown LAB BLOOD ORDERABLES Final Res ult [facility] [place] [address] * Glucose, random (Outreach) (12/29/2024 11:00 AM [...] BLOOD ORDERABLES Final Result Performing Organization Address [facility] Co de Phone Number [facility] [place] [address] * eGFR (12/29/2024 11:00 AM CDT) eGFR [...] BLOOD ORDERABLES Final Result Performing Organization Address City/[facility]/ZIP Co de Phone Number [facility] [place] [address] * Differential, auto (12/29/2024 11:00 AM CDT) Pathologist [facility] Neutrophil abs 2.86 1.50 - 6.50 K/cumm Imm gran abs 0.04 0.00 - 0.10 K/cumm [facility] Lymphocyte abs 1.99 0.80 - 3.30 K/cumm [facility] Monocyte abs 0.45 0.20 - 0.80 K/cumm [facility] Eosinophil abs 0.10 0.00 - 0.50 K/cumm [facility] Basophil abs 0.02 0.00 - 0.10 K/cumm [facility] Neutrophil pct 52.5 % [facility] Comment: Interpretive Data Percent cell count reference ranges are not reported, since discordance with absolute values may lead to misinterpretation of CBC data. Current Interpretive Data was last revised on 2017. Imm gran pct 0.7 % [facility] Comment: Interpretive Data Percent cell count reference ranges are not reported, since discordance with absolute values may lead to misinterpretation of CBC data. Current Interpretive Data was last revised on 2017. Lymphocyte pct 36.4 % [facility] Comment: Interpretive Data Percent cell count reference ranges are not reported, since discordance with absolute values may lead to misinterpretation of CBC data. Current Interpretive Data was last revised on 2017. Monocyte pct 8.2 % [facility] Comment: Interpretive Data Percent cell count reference ranges are not reported, since discordance with absolute values may lead to misinterpretation of CBC data. Current Interpretive Data was last revised on 2017. Eosinophil pct 1.8 % [facility] Comment: Interpretive Data Percent cell count reference ranges are not reported, since discordance with absolute values may lead to misinterpretation of CBC data. Current Interpretive Data was last revised on 2017. Basophil pct 0.4 % [facility] Comment: Interpretive Data Percent cell count reference ranges are not reported, since discordance with absolute values may lead to misinterpretation of CBC data. Current Interpretive Data was last revised on 2017. Blood 12/29/2024 11:0 0 AM CDT 12/29/2024 3:05 PM CDT us Jimi Ivey MD LAB BLOOD ORDERABLES Final Result [facility] [place] [address] * (ABNORMAL) Comprehensive metabolic panel, without glucose (Outreach) (12/29/2024 11:00 AM CDT) [facility] Sodium 143 135 - 145 mmol/L Potassium, pl 3.7 3.3 - 4.9 mmol/L [facility] Chloride 107 97 - 110 mmol/L [facility] CO2 26 22 - 32 mmol/L [facility] Anion gap 10 2 - 15 mmol/L [facility] BUN 11 6 - 25 mg/dL [facility] Creatinine 0.87 0.60 - 1.10 mg/dL [facility] Calcium 8.6 8.5 - 10.3 mg/dL [facility] Protein, pl 6.4(L) 6.5 - 8.5 g/dL [facility] Albumin 3.7 3.5 - 5.0 g/dL [facility] Bilirubin, total 0.4 0.1 - 1.2 mg/dL [facility] Alk phos 51 40 - 130 Units/L [facility] AST 21 10 - 45 Units/L [facility] ALT 18 7 - 45 Units/L [facility] Blood 12/29/2024 11:0 0 AM CDT 12/29/2024 3:06 PM CDT Jimi Ivey MD LAB BLOOD ORDERABLES Final Result [facility] [place] [address] * CBC with auto differential (12/29/2024 11:00 AM CDT) [facility] WBC 5.46 3.80 - 9.90 K/cumm Hgb 13.7 11.9 - 15.5 g/dL [facility] Hct 41.7 35.6 - 45.5 % [facility] Plt 227 150 - 400 K/cumm [facility] MPV 10.2 9.1 - 12.3 fL [facility] RBC 4.44 3.90 - 5.20 M/cumm [facility] MCV 93.9 81.3 - 96.4 fL [facility] MCH 30.9 27.1 - 33.3 pg [facility] MCHC 32.9 32.3 - 35.7 g/dL [facility] RDW CV 14.0 11.1 - 14.9 % [facility] RDW SD 47.5 35.7 - 48.1 fL [facility] NRBC abs 0.00 0.00 - 0.01 K/cumm [facility] Blood 12/29/2024 11:0 0 AM CDT 12/29/2024 3:05 PM CDT Jimi Ivey MD LAB BLOOD ORDERABLES Final Result [facility] [place] [address] * SCAN - LABS (12/28/2024) us Provider Scanning Final Result from Last 3 Months Insurance [facility] Member Subscriber Plan / Payer (Ef fective 2020-Present) Name:Destiney Preston Relation to Subscriber:Self Name:Mohan Destiney Rick Payer ID:[id number] (NAIC) Type:MEDICAID RISK OTHER Address: [place] [address] Care Teams Hand Shoe Cutter Relationship Specialty Start Date End Date Elena Elliott DO PCP - General Family Medicine 11/14/21 Jimi Ivey MD [address] [place] [address] PCP - Home Infusion Attending Pulmonary Disease 01/06/25
--- OUTSIDE RECORDS SUMMARY | 2025-03-17 20:29 | XMS_ITS | Encounter Summary ---
Author Organization [facility] Address [address] [place] [address] Phone Care Team Providers Care Electric Frying Pan Repairer Name Role Phone Elena Elliott DO Primary Care Provider +1- [phone] Bunny Liu [facility] Unavailable Unavailable Jimi Ivey MD Unavailable +1- [phone] Encounter Details Date Type Department Care Team (Latest Contact Info) Description 12/01/2024 Orders Only [facility] Scanning, Provider Social History Tobacco Use Types Packs/Day Years Used Date Smoking Tobacco: Former Smokeless Tobacco: Never Comments Unknown Sex and Gender Information Value Date Recorded Sex Assigned at Not on file 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
--- OUTSIDE RECORDS SUMMARY | 2025-03-17 20:29 | XMS_ITS | Encounter Summary ---
Author Organization [facility] Address [address] [place] [address] Phone Care Team Providers Care Slipper Maker Name Role Phone Eelna Elliott DO Primary Care Provider +1- [phone] Jimi Ivey MD Unavailable +1- [phone] Encounter Details Date Type Department Care Team (Late st Contact Info) Description 01/28/2025 Results Follow-Up [facility] Medicine Pulmonary [address] [facility] Advanced Medicine 8th [place] [address] [place] [address] Jimi Ivey MD [address] [facility] [address] [place] [address] X-ray chest 2 views Social History Tobacco Use Types Packs/Day Years Used Date Smoking Tobacco: Former Smokeless Tobacco: Never Comments Unknown Sex and Gender Information Value Date Recorded Sex Assigned at Not on file 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
--- OUTSIDE RECORDS SUMMARY | 2025-03-17 20:29 | XMS_ITS | Clinical Summary ---
Author Organization [facility] [employer] Address [address] [place] [address] Care Team Providers Care Foundry Superintendant Name Role Phone Unavailable Primary Care Provider Unavailabl e Source Comments [facility] [employer],non-owned Affiliates and Associated Physician Practices is amultiple site organization consisting of ambulatory clinics and hospital sitesin [place], [place], [place] and [place]. This disclosure is being madepursuant to the Care Everywhere program and may not contain all information available regarding this patient. Last updated 17.[facility] [employer] Social History Tobacco Use Types Packs/Day [...]
--- OUTSIDE RECORDS SUMMARY | 2025-03-17 20:29 | XMS_ITS | Encounter Summary ---
Author Organization [facility] Address [address] [place] [address] Care Team Providers Care Freelance Art Director Name Role Phone Elena Elliott DO Primary Care Provider [phone]- [phone] Jimi Ivey MD Unavailable [phone]- [phone] Encounter Details Date Type Department Care Team (Late st Contact Info) Description 01/13/2025 Orders Only [facility] Scheduling [address] [place] [address] Jimi Ivey MD [address] [facility] [address] [place] [address] Social History Tobacco Use Types Packs/Day Years Used Date Smoking Tobacco: Former Smokeless Tobacco: Never Comments Unknown Sex and Gender Information Value Date Recorded Sex Assigned at Not on file Legal Sex Female 9:33 AM [employer] Gender Identity Not on file Sexual Orientation Not on file documented as of this encounter Plan of Treatment Not on file documented as of this encounter Procedures Procedure Name Priority Date/Time Associated Diagnosis Comments AMBULATORY INVESTIGATION REFERRAL TO [facility] INFUSION Routine 01/13/2025 9:35 AM CDT documented in this encounter Results * Ambulatory Investigational Referral to [facility] Home Infusion (01/13/2025 9:35 AM CDT) us Jimi Ivey MD OUTPATIENT REFERRAL ORDERABLES Final Result documented in this encounter Visit Diagnoses Not on filedocumented in this encounter Care Teams Freelance Art Director Relationship Specialty Start Date End Date Elena Elliott DO PCP - General Family Medicine 11/14/21 Jimi Ivey MD [address] [facility] [address] [place] [address] PCP - Home Infusion Attending Pulmonary Disease 01/06/25 documented as of this encounter
[2025-03-17] MEDS: IPRATROPIUM 0.5 MG/ALBUTEROL SULFATE 2.5 MG (BASE) AMPUL.NEB 3 ML INHALATION ×3 (20:30)
[2025-03-17 20:43] VITALS: PULSE 98; RESP 18
[2025-03-17 21:02] LABS: Add Urine Microscopic? YES; Appearance Urine Clear (Clear); Glucose Urine UA Negative (Negative); Leukocyte Esterase Ur Negative LEU/UL (Negative); Need Manual Microscopic Reviewed; Nitrate Urine Negative (Negative); Specific Grav Ur 1.034 (1.001-1.035)
[2025-03-17 21:19] VITALS: O2SAT 96
[2025-03-17 21:44] VITALS: PULSE 114; RESP 18
[2025-03-17] MEDS: KETOROLAC 30 MG/ML VIAL (*BKC) IV PUSH (21:46)
[2025-03-17] MEDS: levoFLOXacin 750 MG/D5W 150 ML 750 MG/150 ML BAG 100 MG IVPB (21:57)
[2025-03-17 23:25] LABS: Influenza A QL RT-PCR Positive (Negative); Influenza B QL RT-PCR Negative (Negative); RSV RNA, RT-PCR Negative (Negative); SARS-CoV-2 RNA PCR Negative (Negative)
== END 2025-03-17 23:44 | disposition home or self-care (01) ==
PROVIDERS: Registered Nurse; Student in an Organized Health Care Education/Training Program; Emergency Provider Student in an Organized Health Care Education/Training Program; PCP Family Medicine
DX: J47.9 Bronchiectasis, uncomplicated (principal); J18.9 Pneumonia, unspecified organism; Z87.891 Personal history of nicotine dependence; Z20.822 Contact with and (suspected) exposure to COVID-19
CPT/HCPCS: 36415; 71046; 71275; 80053; 81001; 83735; 85025; 85380; 85610; 85730; 87637; 93005; 94640; 96365; 96375; 99284; J1885; J1956; J7512; Q9967